=== PATIENT | male | born 1965 | race Two or more races ===

== ENCOUNTER → 2019-12-15 10:10 | Outpatient (BNVA) | payer MEDICAID, SELFPAY | PROVIDERS: PCP Family Medicine; Referring Provider Family Medicine; Visit Provider Hospitalist | DX: G47.33 Obstructive sleep apnea (adult) (pediatric) (principal); R06.00 Dyspnea, unspecified; I27.20 Pulmonary hypertension, unspecified; I42.9 Cardiomyopathy, unspecified | CPT/HCPCS: 99214 ==

== ENCOUNTER → 2020-03-14 10:30 | Outpatient (BNVA) | payer MEDICAID, SELFPAY | PROVIDERS: PCP Family Medicine; Visit Provider Hospitalist | DX: G47.33 Obstructive sleep apnea (adult) (pediatric) (principal); I27.20 Pulmonary hypertension, unspecified; R06.00 Dyspnea, unspecified | CPT/HCPCS: 99212 ==

== ENCOUNTER 2020-04-08 10:52 | Emergency (ER) | payer MEDICAID, SELFPAY ==
[2020-04-08 11:30] VITALS: BP 120/70; PULSE 88; RESP 16; TEMP 36.8; O2SAT 99; BMI 47.0
--- NOTE | 2020-04-08 12:59 | ED.EXTPRO ---
HPI - Extremity Problem General Chief complaint: Extremity Problem Stated complaint: GOUT Time Seen by Provider: 04/08/20 12:18 Source: patient Mode of arrival: ambulatory Limitations: no limitations History of Present Illness HPI Narrative: 54-year-old male with a past medical history of cardiomyopathy, SINGH, pulmonary hypertension, gout on allopurinol here with complaints of left ankle and foot pain times several days. The patient tells me the history of gout and this feels similar to previous. There is no injury or trauma. He is taking his allopurinol as prescribed with continued pain. No redness, warmth, fevers, chills, body aches. MD Complaint: extremity pain Related Data Home Medications Medication Instructions Recorded Confirmed allopurinol 300 mg tablet 150 mg PO DAILY 12/15/19 03/14/20 apixaban 5 mg tablet 5 mg PO BID 12/15/19 03/14/20 carvedilol 3.125 mg tablet 3.125 mg PO BID 12/15/19 03/14/20 cholecalciferol (vitamin D3) 25 25 mcg PO DAILY 12/15/19 03/14/20 mcg (1,000 unit) capsule furosemide 40 mg tablet 40 mg PO DAILY 12/15/19 03/14/20 ibuprofen 200 mg capsule 200 mg PO Q6H PRN 12/15/19 03/14/20 lisinopril 2.5 mg tablet 2.5 mg PO DAILY 12/15/19 03/14/20 nabumetone 750 mg tablet 750 mg PO BID 12/15/19 03/14/20 sacubitril 24 mg-valsartan 26 mg 1 tab PO BID 12/15/19 03/14/20 tablet Previous Rx's Medication Instructions Recorded clotrimazole-betamethasone 1 1 applic TOPICAL BID 30 Days #15 g 12/07/19 %-0.05 % topical cream prednisone 40 mg PO DAILY #10 tab 04/08/20 Allergies Allergy/AdvReac Type Severity Reaction Status Date / Time No Known Allergies Allergy Verified 04/08/20 11:32 [No Known Allergies*] Review of Systems Review of Systems: Yes all other systems are reviewed and are negative Constitutional: Constitutional: Reports no additional constitutional complaints, Denies body ache(s), Denies chills, Denies fever(s), Denies headache(s) and Denies weakness Eyes: Eyes: Reports no additional eye complaints and Denies change in vision ENT: Reports system reviewed and no additional complaints, except as documented, Denies dizziness, Denies headache(s), Denies nasal congestion, Denies nasal discharge and Denies neck pain Cardiovascular: Cardiovascular: Reports no additional cardiovascular complaints, Denies chest pain, Denies leg edema and Denies dyspnea Respiratory: Respiratory: Reports no additional respiratory complaints, Denies cough and Denies dyspnea Gastrointestinal: Gastrointestinal: Reports no additional gastrointestinal complaints, Denies abdominal pain, Denies diarrhea, Denies nausea and Denies vomiting Genitourinary: Genitourinary: Denies urinary incontinence Musculoskeletal: Musculoskeletal: Reports no additional musculoskeletal complaints, Denies back pain, Reports arthralgias, Denies joint swelling, Denies neck pain, Denies numbness and Denies tingling Integumentary/Breasts: Skin/Breast: Reports system reviewed and no additional complaints, except as docu and Denies rash Neurologic: Reports system reviewed and no additional complaints, except as documented, Denies Abnormal speech present, Denies dizziness, Denies headache(s), Denies numbness, Denies tingling and Denies weakness [facility] Past Medical History Attestation statement: The following information was validated with the patient. Source: old records reviewed and nursing notes reviewed Medical History Cardiomyopathy Dyspnea Gout SINGH (obstructive sleep apnea) Pulmonary hypertension Social History Social History Smoking Status: Never smoker Advance Directives: No Advance Directives Information Provided: Yes Physical Exam Vital Signs: Vital Signs: Last Vital Signs Temp 98.3 F 04/08/20 11:30 Pulse 88 04/08/20 11:30 Resp 16 04/08/20 11:30 BP 120/70 04/08/20 11:30 Pulse Ox 99 04/08/20 11:30 Body Mass Index 47.0 Const: General: cooperative, healthy appearing, comfortable and no acute distress Orientation/consciousness: patient oriented x3 Limitations: no limitations HENMT: Head: Yes normal to inspection Ears: hearing grossly normal bilaterally General nose exam: Normal external nose present Face and sinus: Yes normal facial exam Mouth: Normal oral and palatal mucosa present Throat: Yes posterior oropharynx normal Eyes: General: appearance normal, both eyes and all related structures Pupils: Equal, round and reactive pupils present Neck: Neck: Yes normal visual inspection Chest: Chest palpation & inspection: normal inspection of the chest Resp: Effort & Inspection: normal respiratory effort Auscultation: clear to auscultation bilaterally Cardio: Rate: regular rate Rhythm: regular rhythm Peripheral pulses: Peripheral pulses 2+ throughout GI: Inspection: Yes normal to inspection Palpation (GI): Soft to palpation and nontender Auscultation: normal bowel sounds Back/Spine/Pelvis: Thoracic/Lumbar Spine: thoracic and lumbar spine normal to inspection Skin: General skin exam: no rashes or lesions noted Neuro: General: patient oriented x3, no focal motor deficits and normal sensation to monofilament Cranial nerves: Yes Equal, round and reactive pupils present Cognition (Neuro): normal cognition Speech: No Abnormal speech present Gait exam (Neuro): Normal gait present Motor exam (neuro): 5/5 motor strength present throughout Extrem: Other: No erythema noted. There is tenderness over the more distal foot just proximal to the 1st digit. Full range of motion. No appreciable ankle tenderness or swelling on exam General: Yes normal to inspection Course Course Course Narrative: 54-year-old male here with left foot gout flare. Taking Eliquis so NSAIDs will be avoided. On allopurinol already. Will give 5 day course of prednisone and have f/u with PCP friday for persistent symptoms. Reviewed worrisome signs and symptoms of when to return to the emergency department. Comfortable discharge home. Discharge Plan Discharge Clinical Impression: Gout Patient Disposition: Home, Self-Care Instructions: Gout (ED) Additional Instructions: Continue your gout medication Follow-up with your primary care doctor on Friday Prescriptions: New prednisone 20 mg tablet 40 mg PO DAILY Qty: 10 RF: 0 No Action clotrimazole-betamethasone 1-0.05 % cream 1 applic topical BID 30 Days Qty: 15 RF: 2 furosemide 40 mg tablet 40 mg PO DAILY RF: 0 carvedilol 3.125 mg tablet 3.125 mg PO BID RF: 0 cholecalciferol (vitamin D3) 25 mcg (1,000 unit) capsule 25 mcg PO DAILY RF: 0 allopurinol 300 mg tablet 150 mg PO DAILY RF: 0 ibuprofen [Advil Migraine] 200 mg capsule 200 mg PO Q6H PRNRF: 0 nabumetone 750 mg tablet 750 mg PO BID RF: 0 lisinopril 2.5 mg tablet 2.5 mg PO DAILY RF: 0 Eliquis 5 mg tablet 5 mg PO BID RF: 0 Entresto 24-26 mg tablet 1 tab PO BID RF: 0 Referrals: [facility] [Primary Care Provider] - 2 days Interventions: ED Discharge Assessment Last Done: 04/08/20 12:56 Discharge Date/Time: 04/08/20 12:57
== END 2020-04-08 12:57 | disposition home or self-care (01) ==
PROVIDERS: Emergency Provider Emergency Medicine Emergency Medical Services
DX: M1A.9XX0 Chronic gout, unspecified, without tophus (tophi) (principal); I43 Cardiomyopathy in diseases classified elsewhere; I27.20 Pulmonary hypertension, unspecified; Z79.899 Other long term (current) drug therapy
CPT/HCPCS: 99283

== ENCOUNTER 2020-06-01 15:13 | Outpatient (REF) | payer MEDICAID, SELFPAY ==
[2020-06-01 16:02] LABS: COVID-19 Test Negative (Negative)
== END 2020-06-01 15:14 | disposition home or self-care (01) ==
LOC: HO.LAB 15:13
PROVIDERS: Visit Provider Internal Medicine
DX: Z20.822 Contact with and (suspected) exposure to COVID-19 (principal)
CPT/HCPCS: 36415; 87635; C9803

== ENCOUNTER 2020-06-19 12:09 | Outpatient (REF) | payer MEDICAID, SELFPAY ==
[2020-06-19 13:23] LABS: COVID-19 Test Negative (Negative); IDNOW Serial# 55D5AD1C
== END 2020-06-19 12:10 | disposition home or self-care (01) ==
LOC: HO.LAB 12:09
PROVIDERS: Visit Provider Internal Medicine
DX: Z20.822 Contact with and (suspected) exposure to COVID-19 (principal)
CPT/HCPCS: 36415; 87635; C9803

== ENCOUNTER 2020-11-13 13:45 | Emergency (ER) | payer MEDICAID, SELFPAY ==
[2020-11-13 15:07] VITALS: BP 95/68; PULSE 80; RESP 16; TEMP 37.3; O2SAT 99; BMI 45.2
[2020-11-13 18:01] LABS: MANUAL DIFF FLAG NO
[2020-11-13 18:03] LABS: Basophils Percent Auto 0.3 % (0-2); Eosinophils Absolute Auto 0.3 X10*3/uL (0.0-0.4); Eosinophils Percent Auto 3.2 % (0-4); Imm Gran Abs Auto 0.02 X10*3/uL (0.00-0.03); Imm Gran Pct Auto 0.2 % (0.0-0.4); Lymphocytes Absolute Auto 1.1 X10*3/uL (1.2-4.9); Lymphocytes Percent Auto 11.5 % (20-40); Mean Corpuscular HGB Conc 31.8 g/dl (31.0-36.0); Mean Corpuscular Hemoglobin 29.4 pg (27.0-33.0); Mean Corpuscular Volume 92.4 fL (80-98); Mean Platelet Volume 11.1 fL (9.4-12.4); Monocytes Absolute Auto 0.7 X10*3/uL (0.1-1.2); Monocytes Percent Auto 6.9 % (2-11); Neutrophils Absolute Auto 7.4 X10*3/uL (2.0-8.3); Neutrophils Percent Auto 77.9 % (45-73); Platelet Count 334 X10*3/uL (160-400); Red Blood Count 4.76 X10*6/uL (4.60-5.80); Red Cell Distribution Width 13.8 % (11.0-16.0); White Blood Count 9.5 X10*3/uL (4.8-10.8)
[2020-11-13 18:21] LABS: Anion Gap 17 (12-20); Blood Urea Nitrogen 33 mg/dL (9-16); Calcium 9.9 mg/dL (8.4-10.2); Carbon Dioxide 25 mmol/L (22-29); Chloride 99 mmol/L (96-108); Creatinine Clr Calc Pharmacy 74.6; Estimated Glomerular Filt Rate 49; Glucose Random 105 mg/dL (60-115); Potassium 4.3 mmol/L (3.3-5.1); Sodium 137 mmol/L (135-145)
[2020-11-13 18:27] LABS: B Type Natriuretic Peptide 548 pg/mL (<100)
[2020-11-13 20:03] VITALS: BP 102/66; PULSE 77; RESP 19; TEMP 37.2; O2SAT 99
--- NOTE | 2020-11-13 20:05 | ED.EXTPRO ---
HPI - Extremity Problem General Chief complaint: General Medical Stated complaint: gout Time Seen by Provider: 11/13/20 19:53 Source: patient and old records reviewed Mode of arrival: ambulatory Limitations: no limitations History of Present Illness MD Complaint: joint paint Onset (ago): week(s) (3) Pain Consistency: constant Location: left, right and other (ankle) Quality: aching Radiation: none Relieving factors: nothing Exacerbating factors: nothing, walking and palpation Associated symptoms: denies other symptoms Context: other (hx of gout and arthritis in the past) Related Data Home Medications Medication Instructions Recorded Confirmed allopurinol 300 mg tablet 150 mg PO DAILY 12/15/19 03/14/20 apixaban 5 mg tablet (Eliquis) 5 mg PO BID 12/15/19 03/14/20 carvedilol 3.125 mg tablet 3.125 mg PO BID 12/15/19 03/14/20 cholecalciferol (vitamin D3) 25 25 mcg PO DAILY 12/15/19 03/14/20 mcg (1,000 unit) capsule furosemide 40 mg tablet 40 mg PO DAILY 12/15/19 03/14/20 ibuprofen 200 mg capsule (Advil 200 mg PO Q6H PRN 12/15/19 03/14/20 Migraine) lisinopril 2.5 mg tablet 2.5 mg PO DAILY 12/15/19 03/14/20 nabumetone 750 mg tablet 750 mg PO BID 12/15/19 03/14/20 sacubitril 24 mg-valsartan 26 mg 1 tab PO BID 12/15/19 03/14/20 tablet (Entresto) Previous Rx's Medication Instructions Recorded clotrimazole-betamethasone 1 1 applic TOPICAL BID 30 Days #15 g 12/07/19 %-0.05 % topical cream prednisone 20 mg tablet 40 mg PO DAILY #10 tab 04/08/20 morphine 15 mg immediate release 15 mg PO Q6H PRN 3 Days #12 tab 11/13/20 tablet prednisone 20 mg tablet 40 mg PO DAILY 3 Days #6 tab 11/13/20 Allergies Allergy/AdvReac Type Severity Reaction Status Date / Time No Known Allergies Allergy Verified 11/13/20 20:03 [No Known Allergies*] Review of Systems Review of Systems: Constitutional : No Fever, No Chills ENT/Mouth : No Ear Pain, No Hoarseness, No sore throat Eyes: No Eye Pain, No Swelling, No Redness, No Foreign Body Cardiovascular : No Chest Pain, No SOB Respiratory : No Cough, No Dyspnea Gastrointestinal : No Nausea, No Vomiting, No Diarrhea, No abdominal Pain Genitourinary : No Dysuria, No Hematuria Musculoskeletal : positive joint pain, No Myalgias, No Joint Swelling Skin : No Skin lacerations, No rash Neuro : No Weakness, No Numbness, No Loss of Consciousness, No Dizziness, No Headache Psych : No Anxiety/Panic, No Depression Heme/Lymph: no easy bruising, no Lymphadenopathy Endocrine : No Polyuria, No Polydipsia All other systems reviewed and are negative [facility] Past Medical History Attestation statement: The following information was validated with the patient. Medical History Cardiomyopathy Dyspnea Gout SINGH (obstructive sleep apnea) Pulmonary hypertension Social History Social History (Updated 11/13/20 @ 20:57 by Silke Brasher DO) Patient Tobacco Use Status: Tobacco use Unknown Advance Directives: No Advance Directives Information Provided: No Physical Exam Vital Signs: Vital Signs: Last Vital Signs Temp 98.9 F 11/13/20 20:03 Pulse 77 11/13/20 20:03 Resp 19 11/13/20 20:03 BP 102/66 11/13/20 20:03 Pulse Ox 99 11/13/20 20:03 Body Mass Index 45.2 Appearance: Alert. Oriented X3. No acute distress. Eyes: Pupils equal, round and reactive to light. ENT: Pharynx normal. Neck: Normal inspection. Neck supple. CVS: Normal heart rate and rhythm. Pulses normal. Respiratory: No respiratory distress. Breath sounds normal. Abdomen: Soft and nontender. Skin: Skin warm and dry. Normal skin color. Normal skin turgor. Extremities: bilateral ankle pain on erythema/warmth, isolated to both ankles full ROM of ankle - no signs of infection, distal NV itnact, nonpitting edema of ankles No calf ttp Neuro: Oriented X 3. No motor deficit. No sensory deficit. MDM - Extremity (Nontraumatic) MDM Narrative Medical decision making narrative: 54 yo male with 3 weeks of bilateral ankle pain - mild non pitting edema, distal NV intact, no erythema/warmth, hx of gout in the past no signs of infection, no dyspnea/rales - suspect arthralgia vs gout - PO pain medications, PO prednisone Lab Data Result diagrams: 11/13/20 17:54 11/13/20 17:54 Labs: Lab Results 11/13/20 11/13/20 11/13/20 Range/Units 17:54 17:54 17:54 WBC 9.5 (4.8-10.8) X10*3/uL RBC 4.76 (4.60-5.80) X10*6/uL Hgb 14.0 (14.0-18.0) g/dl Hct 44.0 (42-52) % MCV 92.4 (80-98) fL MCH 29.4 (27.0-33.0) pg MCHC 31.8 (31.0-36.0) g/dl RDW 13.8 (11.0-16.0) % Plt Count 334 (160-400) X10*3/uL MPV 11.1 (9.4-12.4) fL Immature Gran % (Auto) 0.2 (0.0-0.4) % Neut % (Auto) 77.9 H (45-73) % Lymph % (Auto) 11.5 L (20-40) % [place] % (Auto) 6.9 (2-11) % Eos % (Auto) 3.2 (0-4) % Baso % (Auto) 0.3 (0-2) % Lymph # (Auto) 1.1 L (1.2-4.9) X10*3/uL [place] # (Auto) 0.7 (0.1-1.2) X10*3/uL Eos # (Auto) 0.3 (0.0-0.4) X10*3/uL Baso # (Auto) 0.0 (0.0-0.2) X10*3/uL Abs Immat Gran (auto) 0.02 (0.00-0.03) X10*3/uL Absolute Neuts (auto) 7.4 (2.0-8.3) X10*3/uL Absolute Nucleated RBC 0.000 (0.0-0.012) X10*3/uL Nucleated RBC % (auto) 0.0 (0.0-0.2) /100WBC Sodium 137 (135-145) mmol/L Potassium 4.3 (3.3-5.1) mmol/L Chloride 99 (96-108) mmol/L Carbon Dioxide 25 (22-29) mmol/L Anion Gap 17 (12-20) BUN 33 H (9-16) mg/dL Creatinine 1.49 H (0.5-1.4) mg/dL Estim Creat Clear Calc 74.6 Estimated GFR 49 Random Glucose 105 (60-115) mg/dL Calcium 9.9 (8.4-10.2) mg/dL B-Natriuretic Peptide 548 H (<100) pg/mL Urine Color Urine Appearance Urine pH (5.0-8.0) Ur Specific [place] (1.005-1.025) Urine Protein (NEG-TRACE) MG/DL Urine Glucose (UA) (NEG) MG/DL Urine Ketones (NEG) MG/DL Urine Blood (NEG) Urine Nitrite (NEG) Ur Leukocyte Esterase (NEG) 11/13/20 Range/Units 20:07 WBC (4.8-10.8) X10*3/uL RBC (4.60-5.80) X10*6/uL Hgb (14.0-18.0) g/dl Hct (42-52) % MCV (80-98) fL MCH (27.0-33.0) pg MCHC (31.0-36.0) g/dl RDW (11.0-16.0) % Plt Count (160-400) X10*3/uL MPV (9.4-12.4) fL Immature Gran % (Auto) (0.0-0.4) % Neut % (Auto) (45-73) % Lymph % (Auto) (20-40) % [place] % (Auto) (2-11) % Eos % (Auto) (0-4) % Baso % (Auto) (0-2) % Lymph # (Auto) (1.2-4.9) X10*3/uL [place] # (Auto) (0.1-1.2) X10*3/uL Eos # (Auto) (0.0-0.4) X10*3/uL Baso # (Auto) (0.0-0.2) X10*3/uL Abs Immat Gran (auto) (0.00-0.03) X10*3/uL Absolute Neuts (auto) (2.0-8.3) X10*3/uL Absolute Nucleated RBC (0.0-0.012) X10*3/uL Nucleated RBC % (auto) (0.0-0.2) /100WBC Sodium (135-145) mmol/L Potassium (3.3-5.1) mmol/L Chloride (96-108) mmol/L Carbon Dioxide (22-29) mmol/L Anion Gap (12-20) BUN (9-16) mg/dL Creatinine (0.5-1.4) mg/dL Estim Creat Clear Calc Estimated GFR Random Glucose (60-115) mg/dL Calcium (8.4-10.2) mg/dL B-Natriuretic Peptide (<100) pg/mL Urine Color YELLOW Urine Appearance CLEAR Urine pH 6.0 (5.0-8.0) Ur Specific [place] 1.015 (1.005-1.025) Urine Protein NEG (NEG-TRACE) MG/DL Urine Glucose (UA) NEG (NEG) MG/DL Urine Ketones NEG (NEG) MG/DL Urine Blood NEG (NEG) Urine Nitrite NEG (NEG) Ur Leukocyte Esterase NEG (NEG) Discharge Plan Discharge Clinical Impression: Arthralgia Qualifiers: Joint pain location: knee Laterality: bilateral Qualified Code(s): M25.561 - Pain in right knee Gout Qualifiers: Gout site: ankle Gout etiology: idiopathic Chronicity: acute Laterality: unspecified laterality Qualified Code(s): M10.079 - Idiopathic gout, unspecified ankle and foot Patient Disposition: Home, Self-Care Instructions: Gout (ED), Arthralgia (ED) Additional Instructions: return to ED for any worsening symptoms or concerns Prescriptions: New prednisone 20 mg tablet 40 mg PO DAILY 3 Days Qty: 6 RF: 0 morphine 15 mg tablet 15 mg PO Q6H PRN (Reason: pain) 3 Days Qty: 12 RF: 0 No Action clotrimazole-betamethasone 1-0.05 % cream 1 applic topical BID 30 Days Qty: 15 RF: 2 prednisone 20 mg tablet 40 mg PO DAILY Qty: 10 RF: 0 furosemide 40 mg tablet 40 mg PO DAILY RF: 0 carvedilol 3.125 mg tablet 3.125 mg PO BID RF: 0 cholecalciferol (vitamin D3) 25 mcg (1,000 unit) capsule 25 mcg PO DAILY RF: 0 allopurinol 300 mg tablet 150 mg PO DAILY RF: 0 ibuprofen [Advil Migraine] 200 mg capsule 200 mg PO Q6H PRNRF: 0 nabumetone 750 mg tablet 750 mg PO BID RF: 0 lisinopril 2.5 mg tablet 2.5 mg PO DAILY RF: 0 Eliquis 5 mg tablet 5 mg PO BID RF: 0 Entresto 24-26 mg tablet 1 tab PO BID RF: 0 Referrals: [facility] [Primary Care Provider] - 2 days (if not better)
[2020-11-13 20:17] LABS: Appearance Urine CLEAR; Color Urine YELLOW; Glucose Urine UA NEG (NEG); Leukocyte Esterase Urine NEG (NEG); Nitrite Urine NEG (NEG); Specific Gravity - Urine 1.015 (1.005-1.025); Urine Blood NEG (NEG); Urine Ketones NEG (NEG); Urine Protein NEG (NEG-TRACE)
[2020-11-13 20:58] VITALS: BP 97/65; PULSE 76; RESP 18; O2SAT 98
[2020-11-13] MEDS: Morphine Sulfate Immed Release 15 MG TABLET PO (20:58)
[2020-11-13] MEDS: predniSONE 20 MG TABLET PO (20:59)
== END 2020-11-13 21:46 | disposition home or self-care (01) ==
PROVIDERS: Emergency Provider Emergency Medicine
DX: M10.9 Gout, unspecified (principal); M10.079 Idiopathic gout, unspecified ankle and foot; M25.571 Pain in right ankle and joints of right foot; M25.561 Pain in right knee; Z79.899 Other long term (current) drug therapy
CPT/HCPCS: 36415; 80048; 81003; 83880; 85025; 99283; 99284

== ENCOUNTER → 2020-12-07 13:40 | Outpatient (REF) | payer MEDICAID, SELFPAY ==
--- NOTE | 2020-12-07 13:43 | CA_ITS ---
Transthoracic Echocardiogram Patient (Last, First, Middle): Phillip Garvin, Gender: Male Date of : 1965 Age: 55 Procedure Date: 12/07/2020 Procedure Type: Transthoracic Echocardiogram Location: OP Height: 170.18 cm Weight: 129.28 kg BSA: 2.35 m2 Heart Rate: bpm BP: 98 / 60 mmHg Plastic Printer: YVETTE Referring MD: Phillip Rivera MD Physician Credentialing Specialist: Rico Lee MD Symptoms: I27.20 - Pulmonary hypertension, unspecified Study Quality: Fair ECG Rhythm: Sinus Conclusions: - 1. Severely dilated left ventricle with severe LV systolic dysfunction with LVEF of 15-20% with grade 3 diastolic dysfunction 2. Mild mitral regurgitation due to annular dilatation 3. Normal RV systolic pressure 4. No gross pericardial effusion Findings Procedure Information Contrast agent, definity, is being given per protocol without apparent complications. Left Ventricle Severely increased left ventricular cavity size. There is normal left ventricular wall thickness. The left ventricular systolic function is severely decreased. The visually estimated ejection fraction is between 15 20%. There is severe global hypokinesis. Spectral Doppler is indicative of a restrictive filling pattern. E/E prime ratio is >15, consistent with elevated filling pressures. Evidence suggests grade III (severe) diastolic dysfunction. Right Ventricle Mildly increased right ventricular cavity size. There is normal right ventricular systolic function. Atria The left atrium is moderately dilated. Interatrial shunt cannot be excluded. The right atrium was not well visualized. Aortic Valve The aortic valve structure and function is likely normal. There is no aortic valve stenosis. There is trace (trivial) aortic valve regurgitation. Mitral Valve There is mild anterior and posterior mitral leaflet thickening. There is mild mitral valve regurgitation. There is no mitral valve stenosis. There is mild mitral annular dilatation. Pulmonic Valve The pulmonic valve was not well visualized. Tricuspid Valve Normal tricuspid valve structure. There is mild tricuspid valve regurgitation. The right ventricular systolic pressure is normal. The right ventricular systolic pressure is 24 mmHg. There is no evidence of pulmonary hypertension. Great Vessels All visible segments of the aorta are normal in size. The pulmonary artery was not well visualized. Venous The inferior vena cava is normal in size and collapses greater than 50% with inspiration. Pericardium/Pleural There is no evidence of pericardial effusion. Prior Study Comparison Changes noted compared to prior study dated: 06/22/2019. RV systolic pressure has improved Measurements M-Mode Liner Measurements Normals - Women/Men IVSd: 1.07 0.6-0.9/0.6-1.0 cm LVIDd: 7.88 3.9-5.3/4.2-5.9 cm LVIDd Index: 3.35 1.9-3.2 cm/m2 LVIDs: 6.87 2.0-3.8 cm LVPWd: 0.87 0.6-0.9/0.6-1.0 cm LV Mass: 474.47 67-162/88-224g LV Mass Index: 201.90 43-95/49-115 g/m2 M-Mode Volumes LV EDV: 333.00 LV ESV: 245.00 2D Linear Measurements IVSd: 0.69 0.6-0.9/0.6-1.0 cm LVIDd: 7.35 3.9-5.3/4.2-5.9 cm LVIDd Index: 3.13 2.4-3.2/2.2-3.1 cm/m2 LVIDs: 6.62 2.0-3.6 cm LVPWd: 0.94 0.7-1.1 cm Ao Root: 2.90 2.1-3.5 cm LA Diam: 4.70 2.7-3.8/3.0-4.0 cm LAIDs Index: 2.00 1.5-2.3 cm/m2 LV Mass: 339.92 67-162/88-224 g LV Mass Index: 144.65 43-95/49-115 g/m2 LVOT Diam: 2.50 3.0+(-)1.3 cm 2D Systolic Function EF 4C: 19.50 >55% EF 2C: 14.00 >55% EF BiP: 20.00 >55% M-Mode Systolic Function FS: 12.80 27-47/25-43% Mitral Valve MV Pk E: 1.17 MV Decel Time: 125.00 E'Lateral: 5.77 E'Medial: 4.79 E/E' Med: 24.40 E/E' Lat: 20.30 PHT: 37.00 MVA PHT: 5.95 Decel [place]: 9.40 Aortic Valve AoV Pk Jorge A: 0.99 AoV Pk Grad: 4.00 LVOT LVOT Pk Jorge A: 0.57 LVOT Mn Jorge A: 0.40 LVOT VTI: 0.11 LVOT Pk Grad: 1.00 LVOT Mn Grad: 1.00 LVOT Diam: 2.50 LVOT Area: 4.91 Diastolic Function MV Pk E: 1.17 E'Medial: 4.79 E/E' Med: 24.40 E' Laterial: 5.77 E/E' Lat: 20.30 Right Ventricle TAPSE (mm): 2.13 Tricuspid Valve TR Pk Jorge A: 2.29 TR Pk Grad: 21.00 RA Press: 3.00 RVSP: 24.00 Great Vessels Aorta Ao Root-2D: 2.90 2.0-3.7 cm Ao Asc: 3.20 2.1-3.4 cm Updated in Other Vendor System with Status of Final Rico Lee MD electronically signed on 12/09/2020 9:24:01 AM with status of Final
== END ==
LOC: HO.CARD 13:40
PROVIDERS: Visit Provider Hospitalist
DX: I27.20 Pulmonary hypertension, unspecified (principal)
CPT/HCPCS: 93306; Q9957

== ENCOUNTER 2021-01-02 12:47 | Outpatient (REF) | payer MEDICAID, SELFPAY ==
[2021-01-02 14:31] LABS: Alanine Aminotransferase 26 U/L (0-40); Alkaline Phosphatase 128 U/L (39-117); Anion Gap 12 (12-20); Aspartate Amino Transferase 28 U/L (5-37); Bilirubin Direct 0.3 mg/dL (0.0-0.5); Bilirubin Total 0.8 mg/dL (0.0-1.0); Blood Urea Nitrogen 32 mg/dL (9-16); Calcium 9.3 mg/dL (8.4-10.2); Carbon Dioxide 29 mmol/L (22-29); Chloride 104 mmol/L (96-108); Cholesterol 205 mg/dL; Estimated Glomerular Filt Rate 42; Glucose Random 87 mg/dL (60-115); HDL Cholesterol 50 mg/dL; LDL Cholesterol Calculated 134 mg/dl; Potassium 4.6 mmol/L (3.3-5.1); Sodium 140 mmol/L (135-145); Total Protein 7.4 g/dL (6.5-8.0); Triglycerides 109 mg/dL
== END 2021-01-02 12:48 | disposition home or self-care (01) ==
LOC: HO.10HDL 12:47
PROVIDERS: Visit Provider Internal Medicine
DX: I10 Essential (primary) hypertension (principal)
CPT/HCPCS: 36415; 80048; 80061; 80076

== ENCOUNTER → 2022-04-05 12:59 | Outpatient (BNVA) | payer MEDICAID, SELFPAY | PROVIDERS: PCP Nurse Practitioner Primary Care; Visit Provider Hospitalist | DX: G47.33 Obstructive sleep apnea (adult) (pediatric) (principal); R40.0 Somnolence; R06.00 Dyspnea, unspecified; I27.0 Primary pulmonary hypertension; I43 Cardiomyopathy in diseases classified elsewhere | CPT/HCPCS: 99212 ==

== ENCOUNTER 2022-04-15 12:23 | Outpatient (REF) | payer MEDICAID, SELFPAY ==
[2022-04-15 13:27] LABS: Anion Gap 14 (12-20); Blood Urea Nitrogen 31 mg/dL (9-16); Calcium 9.4 mg/dL (8.4-10.2); Carbon Dioxide 24 mmol/L (22-29); Chloride 105 mmol/L (96-108); Estimated Glomerular Filt Rate 59; Glucose Random 82 mg/dL (60-115); Potassium 4.7 mmol/L (3.3-5.1); Sodium 138 mmol/L (135-145)
[2022-04-15 14:20] LABS: Creatinine Urine 58.98 mg/dL; Microalbum/Creatinine Ratio Ur 13.5 ug/mg cr
== END 2022-04-15 12:24 | disposition home or self-care (01) ==
LOC: HO.LAB 12:23
PROVIDERS: PCP Nurse Practitioner Primary Care; Visit Provider Internal Medicine Hypertension Specialist
DX: N18.31 Chronic kidney disease, stage 3a (principal)
CPT/HCPCS: 36415; 80048; 82043

== ENCOUNTER 2023-02-10 13:48 | Outpatient (AMB) | payer MEDICAID, SELFPAY ==
[2023-02-10 13:52] VITALS: PULSE 86; O2SAT 98; BMI 49.5
--- NOTE | 2023-02-10 13:52 | HO.NEPHOV ---
HPI HPI Comments History of Present Illness Details Middle-aged man with obesity and cardiomyopathy and CKD. He has a history of SOILA in the past. Renal function is improved and returned to baseline. Today he has no specific complaints. [facility] Medical History Gout Cardiomyopathy Dyspnea Pulmonary hypertension SINGH (obstructive sleep apnea) Social History Patient Tobacco Use Status: Tobacco use Unknown Vital Signs 02/10/23 13:52 Height 5 ft 7 in Weight 316 lb BMI 49.5 Pulse 86 Pulse Source Pulse Oximeter Pulse Oximetry (%) 98 Oxygen Delivery Method Room Air Physical Exam Vital Signs: Last Vital Signs Pulse 86 02/10/23 13:52 Pulse Ox 98 02/10/23 13:52 Oxygen Delivery Method Room Air 02/10/23 13:52 BMI result Body Mass Index 49.5 Const General: comfortable Nutritional Appearance: obese Orientation/consciousness: patient oriented x3 HEENT Head: No normal to inspection Mouth: moist mucous membranes Neck Neck: Yes supple and Yes no JVD Resp Auscultation: clear to auscultation bilaterally, no rales and rub present Cardio Jugular venous distension: no JVD Palpation: no palpable S3 and no palpable S4 Heart sounds: no rubs GI Palpation (GI): Soft to palpation and nontender Percussion: No Fluid wave present General: Yes no CVA tenderness Back/Spine/Pelvis Back: no CVA tenderness Skin General skin exam: no rashes or lesions noted Neuro General: patient oriented x3 Extrem General: Yes no pedal edema and No clubbing Assessment & Plan Assessment & Plan (1) CKD (chronic kidney disease) stage 3, GFR 30-59 ml/min: Code(s): N18.30 - Chronic kidney disease, stage 3 unspecified (2) Cardiomyopathy: Code(s): I42.9 - Cardiomyopathy, unspecified Plan Middle-aged man with CKD in setting obesity and cardiomyopathy. He had an episode of SOILA which has resolved. At present renal function is at baseline. Goal is to slow the progression of renal disease. Continue to avoid hypotension and nephrotoxins including NSAIDs. Discussed importance of weight loss and low-sodium diet. Baseline workup has been ordered as below. Orders: Orders Electrolytes Today I42.9 - Cardiomyopathy, unspecified, N18.30 - Chronic kidney disease, stage 3 unspecified Blood Urea Nitrogen Today I42.9 - Cardiomyopathy, unspecified, N18.30 - Chronic kidney disease, stage 3 unspecified Creatinine Today I42.9 - Cardiomyopathy, unspecified, N18.30 - Chronic kidney disease, stage 3 unspecified Calcium Today I42.9 - Cardiomyopathy, unspecified, N18.30 - Chronic kidney disease, stage 3 unspecified Total Protein Urine Random Today I42.9 - Cardiomyopathy, unspecified, N18.30 - Chronic kidney disease, stage 3 unspecified Creatinine Urine Today I42.9 - Cardiomyopathy, unspecified, N18.30 - Chronic kidney disease, stage 3 unspecified UA and rflx microscopic Today I42.9 - Cardiomyopathy, unspecified, N18.30 - Chronic kidney disease, stage 3 unspecified Complete Blood Count no Diff Today I42.9 - Cardiomyopathy, unspecified, N18.30 - Chronic kidney disease, stage 3 unspecified Coding Level of Care Code Est Pt Level 4 (02130) Diagnoses CKD (chronic kidney disease) stage 3, GFR 30-59 ml/min N18.30 Cardiomyopathy I42.9 Results Reviewed Nephrology Results: Hgb 14.0 g/dl (14.0-18.0) 11/13/20 WBC 9.5 X10*3/uL (4.8-10.8) 11/13/20 Plt Count 334 X10*3/uL (160-400) 11/13/20 Sodium 138 mmol/L (135-145) 04/15/22 Potassium 4.7 mmol/L (3.3-5.1) 04/15/22 Chloride 105 mmol/L (96-108) 04/15/22 Carbon Dioxide 24 mmol/L (22-29) 04/15/22 BUN 31 mg/dL (9-16) H 04/15/22 Creatinine 1.26 mg/dL (0.5-1.4) 04/15/22 Calcium 9.4 mg/dL (8.4-10.2) 04/15/22 Urine Protein NEG MG/DL (NEG-TRACE) 11/13/20 Urine Creatinine 58.98 mg/dL 04/15/22
== END 2023-02-10 14:18 | disposition home or self-care (01) ==
PROVIDERS: PCP Nurse Practitioner Primary Care; Visit Provider Internal Medicine Hypertension Specialist
DX: N18.30 Chronic kidney disease, stage 3 unspecified (principal); I42.9 Cardiomyopathy, unspecified
CPT/HCPCS: 99214

== ENCOUNTER 2023-02-10 13:48 | Outpatient (REF) | payer MEDICAID, SELFPAY ==
[2023-02-10 15:26] LABS: Hematocrit 46.9 % (42.0-52.0); Hemoglobin 14.8 g/dl (14.0-18.0); Mean Corpuscular HGB Conc 31.6 g/dl (31.0-36.0); Mean Corpuscular Hemoglobin 30.4 pg (27.0-33.0); Mean Corpuscular Volume 96.3 fL (80.0-98.0); Mean Platelet Volume 11.9 fL (9.4-12.4); Platelet Count 254 X10*3/uL (160-400); Red Blood Count 4.87 X10*6/uL (4.60-5.80); Red Cell Distribution Width 13.2 % (11.0-16.0); White Blood Count 8.7 X10*3/uL (4.8-10.8)
[2023-02-10 15:44] LABS: Anion Gap 15 (12-20); Blood Urea Nitrogen 37 mg/dL (9-16); Calcium 9.8 mg/dL (8.4-10.2); Carbon Dioxide 26 mmol/L (22-29); Chloride 106 mmol/L (96-108); Estimated Glomerular Filt Rate 56; Potassium 4.7 mmol/L (3.3-5.1); Sodium 142 mmol/L (135-145)
[2023-02-10 16:33] LABS: Appearance Urine Clear; Color Urine Yellow; Glucose Urine UA 100 mg/dL (Negative); Leukocyte Esterase Urine Negative (Negative); Nitrite Urine Negative (Negative); UMIC TRIGGER UA YES; Urine Blood Trace (Negative); Urine Ketones Negative (Negative); Urine Protein Negative (Neg-Trace)
[2023-02-10 16:35] LABS: Bacteria Urine None Seen (None Seen); Hyaline Casts Urine 0-2 /LPF (0-2); RBC Urine 0-2 /HPF (0-2); Squamous Epithelial Cell Urine 0-2 /HPF (0-2); WBC Urine 0-5 /HPF (0-5)
[2023-02-10 17:08] LABS: Creatinine Urine 31.06 mg/dL; Total Protein Urine Random < 7 mg/dL (<12)
== END 2023-02-10 13:49 | disposition home or self-care (01) ==
LOC: HO.LAB 13:48
PROVIDERS: PCP Nurse Practitioner Primary Care; Visit Provider Internal Medicine Hypertension Specialist
DX: I42.9 Cardiomyopathy, unspecified (principal); N18.30 Chronic kidney disease, stage 3 unspecified; E66.9 Obesity, unspecified; Z68.42 Body mass index [BMI] 45.0-49.9, adult
CPT/HCPCS: 36415; 80051; 81001; 82310; 82565; 82570; 84156; 84520; 85027; 99212

== ENCOUNTER 2023-03-30 14:36 | Emergency (ER) | payer MEDICAID, SELFPAY ==
--- NOTE | ~2023-03-30 | XR_ITS ---
EXAMINATION: XR ELBOW, LEFT CLINICAL INFORMATION: Pain, swelling, and redness COMPARISON: None available. TECHNIQUE: AP, lateral, and oblique views of the left elbow. FINDINGS: No evidence of acute fracture or malalignment. Small radiocapitellar and ulnotrochlear osteophytes. Radiocapitellar alignment is normal. Small triceps and forearm extensor insertional enthesophytes. No elbow joint effusion. Moderate soft tissue swelling overlying the olecranon process. Punctate, 3 mm radiopaque density overlies the lateral/volar soft tissues of the proximal forearm, possibly external. Correlate with physical exam. XR/XR elbow LT 2V IMPRESSION: 1. No evidence of acute fracture or malalignment. Mild elbow arthrosis. 2. Moderate soft tissue swelling overlying the olecranon process, can be seen in the setting of olecranon bursitis. 3. Punctate, 3 mm radiopaque density overlies the lateral/volar soft tissues of the proximal forearm, possibly external. Correlate with direct visualization
--- NOTE | 2023-03-30 14:41 | ECG_ITS ---
Test Reason : left arm pain Blood Pressure : / mmHG Vent. Rate : 084 BPM Atrial Rate : 084 BPM P-R Int : 214 ms QRS Dur : 154 ms QT Int : 406 ms P-R-T Axes : 035 -50 101 degrees QTc Int : 479 ms Sinus rhythm with 1st degree A-V block with occasional Premature ventricular complexes Left axis deviation Left bundle branch block Abnormal ECG When compared with ECG of 20-JUN-2019 15:35, Premature ventricular complexes are now Present OR interval has increased QRS duration has increased T wave inversion less evident in Lateral leads Referred By: Generic ED Physician Electronically Signed By:MONICA REYNOSO
[2023-03-30 15:22] VITALS: BP 109/70; PULSE 88; RESP 18; TEMP 36.4; O2SAT 97; BMI 49.6
--- NOTE | 2023-03-30 15:28 | ED.GENADULT ---
HPI - General Adult General Chief complaint: Extremity Injury, Upper Stated complaint: Left arm pain Time Seen by Provider: 03/30/23 20:07 Source: patient and RN notes reviewed Mode of arrival: ambulatory Limitations: no limitations History of Present Illness HPI narrative: This is a 57-year-old male, with a history of gout, cardiomyopathy, SINGH, pulmonary hypertension, gout on allopurinol presenting to the emergency department with complaints of atraumatic left elbow pain x2 days. Patient states that he typically gets gout flare ups in his knees and feet, denies having any gout flare ups in his elbows before. He states that he is unable to sleep secondary to the pain. Pain worsens with light palpation as well as movement. He reports that he felt warm the other day however denies any fevers, chills, chest pain, shortness of breath, abdominal pain, nausea, vomiting or diarrhea. He denies taking any medications at home to treat his current symptoms. No other complaints or concerns at this time. MD complaint: Left elbow pain Onset (ago): day(s) Location: upper extremity Radiation: non-radiation Severity: moderate Quality: aching Pain Consistency: constant Relieving factors: immobilization Exacerbating factors: movement Associated symptoms: denies other symptoms Treatments prior to arrival: none Related Data Home Medications Medication Instructions Recorded Confirmed allopurinol 300 mg tablet 150 mg PO DAILY 12/15/19 03/14/20 apixaban 5 mg tablet (Eliquis) 5 mg PO BID 12/15/19 03/14/20 carvedilol 3.125 mg tablet 3.125 mg PO BID 12/15/19 03/14/20 furosemide 40 mg tablet 40 mg PO DAILY 12/15/19 03/14/20 lisinopril 2.5 mg tablet 2.5 mg PO DAILY 12/15/19 03/14/20 sacubitril 24 mg-valsartan 26 mg 1 tab PO BID 12/15/19 03/14/20 tablet (Entresto) Previous Rx's Medication Instructions Recorded prednisone 20 mg tablet 40 mg (2 x 20 mg) PO DAILY 4 days 03/30/23 #8 tabs Allergies Allergy/AdvReac Type Severity Reaction Status Date / Time No Known Allergies Allergy Verified 02/10/23 13:55 [No Known Allergies*] Review of Systems Review of Systems: Yes all other systems are reviewed and are negative PMFSH Past Medical History Attestation statement: The following information was validated with the patient. Medical History Gout Cardiomyopathy Dyspnea Pulmonary hypertension SINGH (obstructive sleep apnea) Social History Social History Patient Tobacco Use Status: Tobacco use Unknown Smoked in Last 30 Days: No Use of substances other than those prescribed or required for medical reasons: No Advance Directives: No Advance Directives Information Provided: No Physical Exam ED Vital Signs: Vital Signs - 24 hr 03/30/23 15:22 03/30/23 19:37 Temperature 97.5 F 98.1 F Pulse Rate 88 89 Respiratory Rate 18 22 H Blood Pressure 109/70 128/72 Pulse Oximetry 97 98 Oxygen Delivery Method Room Air Room Air BMI result Body Mass Index 49.6 Const Other: General: Awake, alert, and oriented X3. No acute distress. HEENT: Normal inspection CVS: Normal heart rate and rhythm. Pulses normal. Respiratory: No respiratory distress Skin: Warm, dry, no rashes noted to exposed skin. Normal skin color. Normal skin turgor. Extremities: Left elbow is exquisitely tender to light palpation, limited range of motion, however able to move elbow 30?. Warm however does not appear to be erythematous. No open wounds or abrasions. Neuro: Oriented X 3. No motor deficit. No sensory deficit. Course Course Course Narrative: RME: 57 yold male with pmh of gout presents to ED for left elbow swelling and pain for couple of days. Patient denies any recent trauma. Medications Administered Discontinued Medications Generic Name Dose Route Start Last Admin Trade Name Freq PRN Reason Stop Dose Admin Prednisone 50 mg 03/30/23 20:32 03/30/23 20:55 Prednisone 10 Mg Tablet PO 03/30/23 20:33 50 mg ONCE ONE Administration Medical Decision Making Medical Decision Making MDM Narrative: This is a 57-year-old male, with a history of gout, presenting to the emergency department for evaluation of left elbow pain x 2 days. On arrival, patient nontoxic appearing, vital signs within normal limits. He is afebrile. Left elbow is moderately edematous, with limited range of motion secondary to pain. Patient with exquisite tenderness on light palpation. He has a history of gouty flare-ups, states that his symptoms feel similar to gout flare ups he has had in the past. Denies taking any medications at home to treat his current symptoms. X-ray was obtained revealing no acute fracture or malalignment. There is moderate soft tissue swelling overlying the olecranon process. There is also a punctate radiopaque foreign body noted in the proximal forearm, I discussed this with patient, he states that he is aware of this foreign body. Differential diagnoses include gouty arthritis, olecranon bursitis, septic arthritis-unlikely. Given physical exam findings this does not appear to be cellulitic in nature, symptoms likely secondary to gouty arthritis, will treat with prednisone as patient is on Eliquis. He is already on allopurinol. Will give 5 day course of prednisone and have him follow-up with his primary care physician if symptoms persist. Patient given return precautions. Patient understands and agrees with plan. Patient stable for discharge. Of note an EKG was ordered out in triage, he has no chest pain or shortness of breath. EKG appears to be similar to previous, with PVCs noted. He does have a manager recovery whom he follows up with, appointment within the next several months for an echocardiogram. Differential Diagnosis Differential Diagnoses: The differential diagnosis associated with the presentation includes See above Independent Interpretation I performed an independent interpretation of an: EKG and Plain X-Ray Interpretation: I reviewed the x-ray and agree with the radiology report. EKG normal sinus rhythm with a first-degree AV block at a ventricular rate of 84 beats per minute, [place] interval two hundred fourteen, QTC 479, no ST elevation or depression. Appears to be similar to previous EKG performed on June 20, 2019 Radiology Impression Discussion of test interpretation with radiology: I have reviewed the radiologist's reading. Radiologist Impression: EXAMINATION: XR ELBOW, LEFT CLINICAL INFORMATION: Pain, swelling, and redness COMPARISON: None available. TECHNIQUE: AP, lateral, and oblique views of the left elbow. FINDINGS: No evidence of acute fracture or malalignment. Small radiocapitellar and ulnotrochlear osteophytes. Radiocapitellar alignment is normal. Small triceps and forearm extensor insertional enthesophytes. No elbow joint effusion. Moderate soft tissue swelling overlying the olecranon process. Punctate, 3 mm radiopaque density overlies the lateral/volar soft tissues of the proximal forearm, possibly external. Correlate with physical exam. XR/XR elbow LT 2V IMPRESSION: 1. No evidence of acute fracture or malalignment. Mild elbow arthrosis. 2. Moderate soft tissue swelling overlying the olecranon process, can be seen in the setting of olecranon bursitis. 3. Punctate, 3 mm radiopaque density overlies the lateral/volar soft tissues of the proximal forearm, possibly external. Correlate with direct visualization Dictated By: Adrien Boles MD Discharge Plan Discharge Clinical Impression: Gout Patient Disposition: Home, Self-Care Instructions: Low Purine Diet (ED), Gout (ED) Additional Instructions: You were seen in the emergency department due to left elbow pain. Your x-ray did not show any broken bones however shows evidence of a swollen joint, this may be due to gout. Please continue taking all at-home medications including allopurinol. I am treating you with prednisone, you were given your 1st dose in the emergency department. Please continue this medication at home, start tomorrow. You may take Tylenol as needed for pain. If any new or worsening symptoms occur including but not limited to fevers, chills, chest pain, shortness for breath, worsening range of motion of your left elbow, please return for re-evaluation. Lo atendieron en urgencias por dolor en el codo park. Arcos radiograf?a no mostr? devon?n hueso roto, sin embargo, muestra evidencia de roberta articulaci?n inflamada, esto puede deberse a gota. Contin?e tomando todos los medicamentos que vanessa en casa, incluido el alopurinol. Te estoy tratando con prednisona, te dieron tu 1ra dosis en urgencias. Por favor contin?e con yanni medicamento en casa, comience ma?kendrick. Puede priti Tylenol seg?n sea necesario para el dolor. Si se presenta alg?n s?ntoma nuevo o que empeora, incluidos, entre otros, fiebre, escalofr?os, dolor en el pecho, dificultad para respirar o empeoramiento del rango de movimiento del codo park, regrese para roberta nueva evaluaci?n. Prescriptions: New prednisone 20 mg tablet 40 mg PO DAILY 4 Days Qty: 8 0RF No Action furosemide 40 mg tablet 40 mg PO DAILY carvedilol 3.125 mg tablet 3.125 mg PO BID Rx Instructions: must administer with a meal/food allopurinol 300 mg tablet 150 mg PO DAILY lisinopril 2.5 mg tablet 2.5 mg PO DAILY Eliquis 5 mg tablet 5 mg PO BID Entresto 24-26 mg tablet 1 tab PO BID Interventions: ED Discharge Assessment Last Done: 03/30/23 21:48 Discharge Date/Time: 03/30/23 21:00 Print Language: Tajik
--- OUTSIDE RECORDS SUMMARY | 2023-03-30 19:27 | XMS_ITS | Continuity of Care Document ---
Author Name Unknown Organization [facility] Address [address] [place] [address]- Care Team Providers Care Crystalizer Name Role Phone Tylor Odom MD, Maurice [facility] AC[facility] R [id number] Date(s): 12/20/22 - 01/19/23 [facility] [address] [place] [address]- Attending Physician: Madison Bauer Admitting Physician: Madison Bauer Referring Physician: AdmtrMadison Allergies, Adverse Reactions, Alerts No Known Allergies Medications allopurinol 300 mg oral tablet 300 mg, 1, tablet, By Mouth, Daily, # 30 tablet, Refills 0, Maintenance, 12/16/18 7:22:08 EDT Start Date: 12/16/18 Status: Ordered colchicine 0.6 mg oral tablet 0.3 mg, 0.5, tablet, By Mouth, Daily, # 45 tablet, Refills 1, Tot. Refills 1, Maintenance, :59:00 EST, Route to Pharmacy Electronically, [facility]/pharmacy #[id number], Partial fill upon patient request if the prescription is for a schedule II opioid drMal.. Start Date: 04/26/21 Status: Ordered dapagliflozin 10 mg oral tablet 1 tablet = 10 mg, By Mouth, Daily, # 30 tablet, 11 Refills, Maintenance, 04/23/22 13:46:00 EST, Tablet, [facility]/pharmacy #[id number], Partial fill upon patient request if the prescription is for a schedule II opioid drug., 170, cm, 04/23/22 13:16:00 EST, Height Start Date: 04/23/22 Status: Ordered Eliquis 5 mg oral tablet 1 tablet, By Mouth, 2 times a day, # 60 tablet, 5 Refills, Maintenance, 12/24/22 10:40:00 EDT, [facility] STORE [id number], 170, cm, 08/23/22 14:14:00 EDT, Height Start Date: 12/24/22 Stop Date: 01/23/23 Status: Ordered Entresto 24 mg-26 mg oral tablet 1 tablet, By Mouth, Every 12 hours, # 60 tablet, 11 Refills, Maintenance, 06/12/22 8:54:00 EDT, [id number], 30, TAKE 1 TABLET BY MOUTH EVERY 12 HOURS, 170, cm, 05/22/22 14:53:00 EDT, Height Start Date: 06/12/22 Status: Ordered spironolactone 25 mg oral tablet 0.5, tablet, By Mouth, Daily, # 45 tablet, Refills 3, Maintenance, 10/17/22 12:31:00 EDT, Route to Pharmacy Electronically, [id number], 170, cm, 08/23/22 14:14:00 EDT, Height Start Date: 10/17/22 Status: Ordered Tab-A-Lizabeth with Iron oral tablet 1 tablet, By Mouth, Daily, # 30 tablet, 0 Refills, Maintenance, 07/25/20 15:43:00 EDT, Tablet, Partial fill upon patient request if the prescription is for a schedule II opioid drug. Start Date: 07/25/20 Status: Ordered torsemide 20 mg oral tablet 1 tablet, By Mouth, 2 times a day, # 180 tablet, 2 Refills, Maintenance, 10/07/22 16:00:00 EDT, [id number], 170, cm, 08/23/22 14:14:00 EDT, Height Start Date: 10/07/22 Status: Ordered Problem List Condition Confirmation Course Effective Dates Status H ealth Status Informant Cardiomyopathy Confirmed Active CHF (congestive heart failure) Confirmed Active Gout Confirmed Active History of pulmonary embolism Confirmed Active Heart failure with reduced ejection fraction Confirmed Active Nonischemic dilated cardiomyopathy Confirmed Active Obstructive sleep apnea Confirmed Active Severe obesity Confirmed Active Social History Social History Type Response Smoking Status Never (less than 100 in lifetime) entered on: 07/02/19 Sex Patient Care team information Care Team Personnel Name: Benny Lim Position: [facility] Outreach Member Role: Lifetime Consulting Physician Name: Harinder Suazo MD Position: [facility] Renal MD Member Role: Lifetime Consulting Physician Address: Address: [address] [place] [address] [address] [facility] [address]- [place] Name: Maurice Keyes MD Position: [facility] Outreach Member Role: PCP Address: Address: [address] [place] [phone]- Name: Jeni Zavala RN Position: [facility] SN RN Member Role: Primary Care Nurse Name: Itzel Mcneil RN Position: [facility] RN Member Role: Primary Care Nurse Name: Kaur Tian RN Position: S RN Member Role: Primary Care Nurse Care Team Related Persons Name: DYLLAN NARVAEZ Address: home [address], [place] Name: UNKNOWN, DEFAULTED
--- OUTSIDE RECORDS SUMMARY | 2023-03-30 19:27 | XMS_ITS | Continuity of Care Document ---
Author Name Unknown Organization [facility] ter Address [address] [place] [address]- Care Team Providers Care Radiation Oncology Manager Name Role Phone Tylor Odom MD, Maurice Primary Care Phys ician Encounter [facility] Date(s): 12/08/22 - 01/17/[address] [id number]- Attending Physician: Kody Nathan NP Admitting Physician: Kody Nathan NP Referring Physician: Kody Nathan NP Allergies, Adverse Reactions, Alerts No Known Allergies Medications allopurinol 300 mg oral tablet 300 mg, 1, tablet, By Mouth, Daily, # 30 tablet, Refills 0, Maintenance, 12/16/18 7:22:08 EDT Start Date: 12/16/18 Status: Ordered colchicine 0.6 mg oral tablet 0.3 mg, 0.5, tablet, By Mouth, Daily, # 45 tablet, Refills 1, Tot. Refills 1, Maintenance, :59:00 EST, Route to Pharmacy Electronically, [facility]/pharmacy #[id number], Partial fill upon patient request if the prescription is for a schedule II opioid drCarlos. Start Date: 04/26/21 Status: Ordered dapagliflozin 10 mg oral tablet 1 tablet = 10 mg, By Mouth, Daily, # 30 tablet, 11 Refills, Maintenance, 04/23/22 13:46:00 EST, Tablet, [facility]/pharmacy #[id number], Partial fill upon patient request if the prescription is for a schedule II opioid drug., 170, cm, 04/23/22 13:16:00 EST, Height Start Date: 04/23/22 Status: Ordered Eliquis 5 mg oral tablet 1 tablet, By Mouth, 2 times a day, # 60 tablet, 5 Refills, Maintenance, 12/24/22 10:40:00 EDT, [id number], 170, cm, 08/23/22 14:14:00 EDT, Height Start Date: 12/24/22 Stop Date: 01/23/23 Status: Ordered Entresto 24 mg-26 mg oral tablet 1 tablet, By Mouth, Every 12 hours, # 60 tablet, 11 Refills, Maintenance, 06/12/22 8:54:00 EDT, [facility], 30, TAKE 1 TABLET BY MOUTH EVERY 12 HOURS, 170, cm, 05/22/22 14:53:00 EDT, Height Start Date: 06/12/22 Status: Ordered spironolactone 25 mg oral tablet 0.5, tablet, By Mouth, Daily, # 45 tablet, Refills 3, Maintenance, 10/17/22 12:31:00 EDT, Route to Pharmacy Electronically, [id number], 170, cm, 08/23/22 14:14:00 EDT, Height Start [...] 2 Refills, Maintenance, 10/07/22 16:00:00 EDT, [id number], 170, cm, 08/23/22 14:14:00 EDT, Height Start [...] Care Team Personnel Name: Benny Lim Position: [facility] Outreach Member Role: Lifetime Consulting Physician Name: Gabriele WHITING, Harinder Alcala Position: [facility] Renal MD Member Role: Lifetime Consulting Physician Address: Address: [address] [place] [address] [address] [facility] [address]- [place] Name: Maurice Keyes MD Position: [facility] Outreach Member Role: PCP Address: Address: [address] [place] [phone]- [place] Name: Jeni Zavala RN Position: [facility] SN RN Member Role: Primary Care Nurse Name: Itzel Mcneil RN Position: [facility] RN Member Role: Primary Care Nurse Name: Kaur Tian RN Position: [facility] RN Member Role: Primary Care Nurse Care Team Related Persons Name: JESUS NARVAEZDIA Address: home [address] [place] [address] Name: UNKNOWN, DEFAULTED
--- OUTSIDE RECORDS SUMMARY | 2023-03-30 19:27 | XMS_ITS | Continuity of Care Document ---
Author Name Unknown Organization [facility] Address [address] [place] [phone]- Care Team Providers Care Industrial Engineering Manager Name Role Phone Tylor Odom MD, Maurice Primary Care Phys ician Encounter [facility] Date(s): 05/15/22 - 06/14/22 [facility] [address] [place] [address]- [place] Allergies, Adverse Reactions, Alerts No Known Allergies Medications allopurinol 300 mg oral tablet 300 mg, 1, tablet, By Mouth, Daily, # 30 tablet, Refills 0, Maintenance, 12/16/18 7:22:08 EDT Start Date: 12/16/18 Status: Ordered apixaban 5 mg oral tablet 1 tablet = 5 mg, By Mouth, 2 times a day, # 60 tablet, 5 Refills, Maintenance, 01/03/22 13:01:00 EST, Tablet, [facility]/pharmacy #[id number], 170, cm, 08/24/21 10:45:00 EDT, Height Start Date: 01/03/22 Stop Date: 07/02/22 Status: Ordered colchicine 0.6 mg oral tablet 0.3 mg, 0.5, tablet, By Mouth, Daily, # 45 tablet, Refills 1, Tot. Refills 1, Maintenance, :59:00 EST, Route to Pharmacy Electronically, [facility]/pharmacy #[id number], Partial fill upon patient request if the prescription is for a schedule II opioid drCarlos. Start Date: 04/26/21 Status: Ordered dapagliflozin 10 mg oral tablet 1 tablet = 10 mg, By Mouth, Daily, # 30 tablet, 11 Refills, Maintenance, 04/23/22 13:46:00 EST, Tablet, [facility]/pharmacy #[id number], Partial fill upon patient request if the prescription is for a schedule II opioid drug., 170, cm, 04/23/22 13:16:00 EST, Height Start Date: 04/23/22 Status: Ordered Entresto 24 mg-26 mg oral tablet 1 tablet, By Mouth, Every 12 hours, # 60 tablet, 11 Refills, Maintenance, 06/12/22 8:54:00 EDT, [facility], 30, TAKE 1 TABLET BY MOUTH EVERY 12 HOURS, 170, cm, 05/22/22 14:53:00 EDT, Height Start Date: 06/12/22 Status: Ordered spironolactone 25 mg oral tablet 12.5 mg, 0.5, tablet, By Mouth, Daily, # 15 tablet, Refills 11, Tot. Refills 11, Maintenance, 11/21/21 14:03:00 EDT, Route to Pharmacy Electronically, [facility]/pharmacy #[id number], 170, cm, 08/24/21 10:45:00 EDT, Height Start Date: 11/21/21 Status: Ordered Tab-A-Lizabeth with Iron oral tablet 1 tablet, By Mouth, Daily, # 30 tablet, 0 Refills, Maintenance, 07/25/20 15:43:00 EDT, Tablet, Partial fill upon patient request if the prescription is for a schedule II opioid drug. Start Date: 07/25/20 Status: Ordered torsemide 20 mg oral tablet 1 tablet = 20 mg, By Mouth, 2 times a day, # 180 tablet, 1 Refills, Maintenance, 05/15/22 9:35:00 EDT, [facility]/pharmacy #[id number], 170, cm, 04/23/22 13:16:00 EST, Height Start Date: 05/15/22 Stop Date: 11/11/22 Status: Ordered Problem List Condition Confirmation Course [...] Care Team Personnel Name: Benny Lim Position: [facility] Outreach Member Role: Lifetime Consulting Physician Name: Gabriele WHITING, Harinder Alcala Position: [facility] Renal MD Member Role: Lifetime Consulting Physician Address: Address: [address] [place] [address], [address] [place], [place] [id number]- Name: Maurice Keyes MD Position: S Outreach Member Role: PCP Address: Address: [address] [place] [id number]- Name: Jeni Zavala RN Position: S RN Member Role: Primary Care Nurse Name: Itzel Mcneil RN Position: S RN Member Role: Primary Care Nurse Name: Kaur Tian RN Position: S RN Member Role: Primary Care Nurse Care Team Related Persons Name: DYLLAN NARVAEZ Address: home [address] [place] [address] Name: UNKNOWN, DEFAULTED
--- OUTSIDE RECORDS SUMMARY | 2023-03-30 19:27 | XMS_ITS | Continuity of Care Document ---
Author Name Unknown Organization [facility] Address [address] [place] [address]- Care Team Providers Care Industrial Controls Technician Name Role Phone Tylor Odom MD, Maurice [facility] Date(s): 03/26/22 - 04/25/22 [facility] [address] [place] [address]- Allergies, Adverse Reactions, Alerts No Known Allergies Medications allopurinol 300 mg oral tablet 300 mg, 1, tablet, By Mouth, Daily, # 30 tablet, Refills 0, Maintenance, 12/16/18 7:22:08 EDT Start Date: 12/16/18 Status: Ordered apixaban 5 mg oral tablet 1 tablet = 5 mg, By Mouth, 2 times a day, # 60 tablet, 5 Refills, Maintenance, 01/03/22 13:01:00 EST, Tablet, [facility]/pharmacy #[id number], 170, cm, 08/24/21 10:45:00 EDT, Height Start Date: 01/03/22 Stop Date: 07/02/22 Status: Ordered colchicine 0.6 mg oral tablet 0.3 mg, 0.5, tablet, By Mouth, Daily, # 45 tablet, Refills 1, Tot. Refills 1, Maintenance, :59:00 EST, Route to Pharmacy Electronically, [facility]/pharmacy #[id number], Partial fill upon patient request if the prescription is for a schedule II opioid drCarlos. Start Date: 04/26/21 Status: Ordered dapagliflozin 10 mg oral tablet 1 tablet = 10 mg, By Mouth, Daily, # 30 tablet, 11 Refills, Maintenance, 04/23/22 13:46:00 EST, Tablet, [facility]/pharmacy #[id number], Partial fill upon patient request if the prescription is for a schedule II opioid drug., 170, cm, 04/23/22 13:16:00 EST, Height Start Date: 04/23/22 Status: Ordered Entresto 24 mg-26 mg oral tablet 1 tablet, By Mouth, Every 12 hours, # 60 tablet, 11 Refills, Maintenance, 03/26/22 14:35:00 EST, Tablet, [facility]/pharmacy #[id number], 1 tablet By Mouth Every 12 hours, 170, cm, 03/25/22 9:29:00 EST, Height Start Date: 03/26/22 Status: Ordered spironolactone 25 mg oral tablet 12.5 mg, 0.5, tablet, By Mouth, Daily, # 15 tablet, Refills 11, Tot. Refills 11, Maintenance, 11/21/21 14:03:00 EDT, Route to Pharmacy Electronically, [facility]/pharmacy #[id number], 170, cm, 08/24/21 10:45:00 EDT, Height [...] 2 times a day, # 60 tablet, 11 Refills, Maintenance, 10/19/20 11:56:00 EDT, [facility] 170, cm, 10/19/20 11:32:00 EDT, Height, 135.9, kg, 07/01/19 16:41:00 EDT, Dry Weight Start Date: 10/19/20 Stop Date: 10/14/21 Status: Ordered Problem List Condition Confirmation Course Effective Dates Status H ealt Status Informant Cardiomyopathy Confirmed Active CHF (congestive [...] Care Team Personnel Name: Benny Lim Position: [facility] Outreach Member Role: Lifetime Consulting Physician Name: Harinder Suazo MD Position: [facility] Renal MD Member Role: Lifetime Consulting Physician Address: Address: [address] [place] [address], [address] [place] [address]- [place] Name: Maurice Keyes MD Position: [facility] Outreach Member Role: PCP Address: Address: [address] [place] [address]- Name: Jeni Zavala RN Position: S RN Member Role: Primary Care Nurse Name: Itzel Mcneil RN Position: S RN Member Role: Primary Care Nurse Name: Kaur Tian RN Position: S RN Member Role: Primary Care Nurse Care Team Related Persons Name: DYLLAN NARVAEZ Address: home [address] [place] [id number] Name: UNKNOWN, DEFAULTED
--- OUTSIDE RECORDS SUMMARY | 2023-03-30 19:28 | XMS_ITS | Continuity of Care Document ---
Author Name Unknown Organization [facility] Address [address] [place] [phone]- Care Team Providers Care Appraisal Analyst Name Role Phone Tylor Odom MD, Maurice Primary Care Phys ician Encounter [facility] [place] Date(s): 12/30/22 - 01/29/23 [facility] [address] [place] [phone]- [place] Allergies, Adverse Reactions, Alerts No Known [...] Refills, Maintenance, 12/24/22 10:40:00 EDT, [id number], 170, cm, 08/23/22 14:14:00 EDT, Height Start Date: 12/24/22 Stop Date: 01/23/23 Status: Ordered Entresto 24 mg-26 mg oral tablet 1 tablet, By Mouth, Every 12 hours, # 60 tablet, 11 Refills, Maintenance, 06/12/22 8:54:00 EDT, [facility], 30, TAKE 1 TABLET BY MOUTH EVERY 12 HOURS, 170, cm, 05/22/22 14:53:00 EDT, Height Start Date: 06/12/22 Status: Ordered spironolactone 25 mg oral tablet 0.5, tablet, By Mouth, Daily, # 45 tablet, Refills 3, Maintenance, 10/17/22 12:31:00 EDT, Route to Pharmacy Electronically, [id number], 170, cm, 08/23/22 14:14:00 EDT, Height Start [...] 2 Refills, Maintenance, 10/07/22 16:00:00 EDT, [facility], 170, cm, 08/23/22 14:14:00 EDT, Height Start [...] Care Team Personnel Name: Benny Lim Position: [facility] Outreach Member Role: Lifetime Consulting Physician Name: Harinder Suazo MD Position: [facility] Renal MD Member Role: Lifetime Consulting Physician Address: Address: [address] [place] [address] [id number] [place] [address]- Name: Maurice Keyes MD Position: [facility] Outreach Member Role: PCP Address: Address: [address] [place] [address]- [place] Name: Jeni Zavala RN Position: [facility] RN Member Role: Primary Care Nurse Name: Itzel Mcneil RN Position: S RN Member Role: Primary Care Nurse Name: Kaur Tian RN Position: S RN Member Role: Primary Care Nurse Care Team Related Persons Name: DYLLAN NARVAEZ Address: home [address] [place] [address] Name: UNKNOWN, DEFAULTED
--- OUTSIDE RECORDS SUMMARY | 2023-03-30 19:28 | XMS_ITS | Continuity of Care Document ---
Author Name Unknown Organization [facility] Address [address] [place] [phone]- Care Team Providers Care Drying Oven Tender Name Role Phone Maurice Keyes MD Primary Care Phys ician [place] [facility] [place]19/23 [facility] [address] [place] [phone]- Attending Physician: Lopez Mccormick DO Admitting Physician: Lopez Mccormick DO Referring Physician: Maurice Keyes MD Allergies, Adverse Reactions, Alerts No Known Allergies Medications allopurinol 300 mg oral tablet 300 mg, 1, tablet, By Mouth, Daily, # 30 tablet, Refills 0, Maintenance, 12/16/18 7:22:08 EDT Start Date: 12/16/18 Status: Ordered colchicine 0.6 mg oral tablet 0.3 mg, 0.5, tablet, By Mouth, Daily, # 45 tablet, Refills 1, Tot. Refills 1, Maintenance, :59:00 EST, Route to Pharmacy Electronically, [facility]/pharmacy #[id number], Partial fill upon patient request if the prescription is for a schedule II opioid drMal.. Start Date: 04/26/21 Status: Ordered dapagliflozin 10 mg oral tablet 1 tablet = 10 mg, By Mouth, Daily, # 30 tablet, 11 Refills, Maintenance, 04/23/22 13:46:00 EST, Tablet, [facility]/pharmacy #[id number], Partial fill upon patient request if the prescription is for a schedule II opioid drug., 170, cm, 04/23/22 13:16:00 EST, Height Start Date: 04/23/22 Status: Ordered Eliquis 5 mg oral tablet 1 tablet, By Mouth, 2 times a day, # 60 tablet, 5 Refills, Maintenance, 12/24/22 10:40:00 EDT, [facility], 170, cm, 08/23/22 14:14:00 EDT, Height Start Date: 12/24/22 Stop Date: 01/23/23 Status: Ordered Entresto 24 mg-26 mg oral tablet 1 tablet, By Mouth, Every 12 hours, # 60 tablet, 11 Refills, Maintenance, 06/12/22 8:54:00 EDT, [facility], 30, TAKE 1 TABLET BY MOUTH EVERY 12 HOURS, 170, cm, 05/22/22 14:53:00 EDT, Height Start Date: 06/12/22 Status: Ordered spironolactone 25 mg oral tablet 0.5, tablet, By Mouth, Daily, # 45 tablet, Refills 3, Maintenance, 10/17/22 12:31:00 EDT, Route to Pharmacy Electronically, [facility], 170, cm, 08/23/22 14:14:00 EDT, Height Start [...] 2 Refills, Maintenance, 10/07/22 16:00:00 EDT, [facility], 170, cm, 08/23/22 14:14:00 EDT, Height Start [...] Care Team Personnel Name: Benny Lim Position: [facility] Outreach Member Role: Lifetime Consulting Physician Name: Gabriele WHITING, Harinder Alcala Position: [facility] Renal MD Member Role: Lifetime Consulting Physician Address: Address: [address] [place] [address] [address] [place] [address]- [place] Name: Maurice Keyes MD Position: [facility] Outreach Member Role: PCP Address: Address: [address] [place] [phone]- [place] Name: Jeni Zavala RN Position: [facility] SN RN Member Role: Primary Care Nurse Name: Itzel Mcneil RN Position: S RN Member Role: Primary Care Nurse Name: Kaur Tian RN Position: S RN Member Role: Primary Care Nurse Care Team Related Persons Name: DYLLAN NARVAEZ Address: home [address] [place] [address] Name: UNKNOWN, DEFAULTED
--- OUTSIDE RECORDS SUMMARY | 2023-03-30 19:28 | XMS_ITS | Continuity of Care Document ---
Author Name Unknown Organization [facility] Address [address] [place] [address]- Care Team Providers Care Assistant Infant Teacher Name Role Phone Tylor Odom MD, Maurice Primary Care Phys [facility] [place] [facility] [place] - 04/21/[address] [address] Attending Physician: Lopez Mccormick DO Admitting Physician: Lopez Mccormick DO Referring Physician: Lopez Mccormick DO Allergies, Adverse Reactions, Alerts No Known Allergies Medications allopurinol 300 mg oral tablet 300 mg, 1, tablet, By Mouth, Daily, # 30 tablet, Refills 0, Maintenance, 12/16/18 7:22:08 EDT Start Date: 12/16/18 Status: Ordered apixaban 5 mg oral tablet 1 tablet = 5 mg, By Mouth, 2 times a day, # 60 tablet, 5 Refills, Maintenance, 01/03/22 13:01:00 EST, Tablet, [facility]/pharmacy #[id number], 170, cm, 08/24/21 10:45:00 EDT, Height Start Date: 01/03/22 Stop Date: 07/02/22 Status: Ordered colchicine 0.6 mg oral tablet 0.3 mg, 0.5, tablet, By Mouth, Daily, # 45 tablet, Refills 1, Tot. Refills 1, Maintenance, :59:00 EST, Route to Pharmacy Electronically, [facility]/pharmacy #[id number], Partial fill upon patient request if the prescription is for a schedule II opioid . Start Date: 04/26/21 Status: Ordered dapagliflozin 10 mg oral tablet 1 tablet = 10 mg, By Mouth, Daily, # 30 tablet, 7 Refills, Maintenance, 10/10/20 17:45:00 EDT, Tablet, [facility]/pharmacy #[id number], Partial fill upon patient request if the prescription is for a schedule II opioid drug., 170, cm, 10/09/20 15:40:00 EDT, Height,... Start Date: 10/10/20 Status: Ordered Entresto 24 mg-26 mg oral tablet 1 tablet, By Mouth, Every 12 hours, # 60 tablet, 11 Refills, Maintenance, 03/26/22 14:35:00 EST, Tablet, [facility]/pharmacy #207, 1 tablet By Mouth Every 12 hours, 170, cm, 03/25/22 9:29:00 EST, Height Start Date: 03/26/22 Status: Ordered nabumetone 750 mg oral tablet TAKE 1 TABLET BY MOUTH TWICE A DAY NEEDED FOR PAIN Start Date: 07/01/19 Status: Ordered spironolactone 25 mg oral tablet 12.5 mg, 0.5, tablet, By Mouth, Daily, # 15 tablet, Refills 11, Tot. Refills 11, Maintenance, 11/21/21 14:03:00 EDT, [id number], cm, 08/24/21 10:45:00 EDT, Height Start Date: 11/21/21 Status: Ordered Tab-A-Lizabeth with Iron oral tablet 1 tablet, By Mouth, Daily, # 30 tablet, 0 Refills, Maintenance, 07/25/20 15:43:00 EDT, Tablet, Partial fill upon patient request if the prescription is for a schedule II opioid drug. Start Date: 07/25/20 Status: Ordered torsemide 20 mg oral tablet 2 tablet, By Mouth, 2 times a day, # 120 tablet, 11 Refills, Maintenance, 01/14/22 13:13:00 EST, [facility], 170, cm, 08/24/21 10:45:00 EDT, Height Start Date: 01/14/22 Status: Ordered torsemide 20 mg oral tablet 2 tablet = 40 mg, By Mouth, 2 times a day, # 120 tablet, 11 Refills, Maintenance, 10/19/20 11:56:00EDT, [facility], 170, cm, 10/19/20 11:32:00 EDT, Height, 135.9, kg, 07/01/19 16:41:00 EDT, Dry Weight Start Date: 10/19/20 Stop Date: 10/14/21 Status: Ordered Vitamin D3 1000 intl units oral tablet 1 tablet = 1,000 International_Units, By Mouth, Daily, # 30 tablet, 0 Refills, Maintenance, 12/16/18 7:21:35 EDT, Tablet Start Date: 12/16/18 Status: Ordered Problem List Condition Confirmation Course Effective Dates Status H ealth Status Informant Cardiomyopathy Confirmed Active CHF (congestive heart failure) Confirmed Active Gout Confirmed Active Severe obesity Confirmed Active Social History Social History Type Response Smoking Status Never (less than 100 in lifetime) entered on: 07/02/19 Sex Patient Care team information Care Team Personnel Name: Benny Lim Position: [facility] Outreach Member Role: Lifetime Consulting Physician Name: Gabriele WHITING, Harinder Alcala Position: [facility] Renal MD Member Role: Lifetime Consulting Physician Address: Address: [address] [place] [address], [address] [address] Name: Tylor Odom MD, Maurice Position: [facility] Outreach Member Role: PCP Address: Address: [address] [place] [address] Name: Jeni Zavala RN Position: S RN Member Role: Primary Care Nurse Name: Itzel Mcneil RN Position: S RN Member Role: Primary Care Nurse Name: Kaur Tian RN Position: S RN Member Role: Primary Care Nurse Care Team Related Persons Name: JESUS NARVAEZDIA Address: home [address] [place] [phone] Name: UNKNOWN, DEFAULTED
--- OUTSIDE RECORDS SUMMARY | 2023-03-30 19:28 | XMS_ITS | Continuity of Care Document ---
Author Name Unknown Organization [facility] Address [address] [place] [address]- Care Team Providers Care Die Drawing Checker Name Role Phone Tylor Odom MD, Maurice Primary Care Phys [facility] [place] [facility] [place] Date(s): 08/23/22 - 09/22/22 [facility] [address] [place] [address]- Attending Physician: Madison Bauer Admitting Physician: Madison Bauer Referring Physician: Madison Bauer Allergies, Adverse Reactions, Alerts No Known Allergies Medications allopurinol 300 mg oral tablet 300 mg, 1, tablet, By Mouth, Daily, # 30 tablet, Refills 0, Maintenance, 12/16/18 7:22:08 EDT Start Date: 12/16/18 Status: Ordered apixaban 5 mg oral tablet 1 tablet = 5 mg, By Mouth, 2 times a day, # 60 tablet, 5 Refills, Maintenance, 01/03/22 13:01:00 EST, Tablet, [facility]/pharmacy #207, 170, cm, 08/24/21 10:45:00 EDT, Height Start Date: 01/03/22 Stop Date: 07/02/22 Status: Ordered colchicine 0.6 mg oral tablet 0.3 mg, 0.5, tablet, By Mouth, Daily, # 45 tablet, Refills 1, Tot. Refills 1, Maintenance, :59:00 EST, [id number], Partial fill upon patient request if the prescription is for a schedule II opioid . Start Date: 04/26/21 Status: Ordered dapagliflozin 10 mg oral tablet 1 tablet = 10 mg, By Mouth, Daily, # 30 tablet, 11 Refills, Maintenance, 04/23/22 13:46:00 EST, Tablet, [id number], Partial fill upon patient request if the prescription is for a schedule II opioid drug., 170, cm, 04/23/22 13:16:00 EST, Height Start Date: 04/23/22 Status: Ordered Entresto 24 mg-26 mg oral tablet 1 tablet, By Mouth, Every 12 hours, # 60 tablet, 11 Refills, Maintenance, 06/12/22 8:54:00 EDT, [facility], 30, TAKE 1 TABLET BY MOUTH EVERY 12 HOURS, 170, cm, 05/22/22 14:53:00 EDT, Height Start Date: 06/12/22 Status: Ordered spironolactone 25 mg oral tablet 12.5 mg, 0.5, tablet, By Mouth, Daily, # 15 tablet, Refills 11, Tot. Refills 11, Maintenance, 11/21/21 14:03:00 EDT, Route to Pharmacy Electronically, [facility]/pharmacy #[id number], 170, cm, 08/24/21 10:45:00 EDT, Height [...] tablet, 1 Refills, Maintenance, 05/15/22 9:35:00 EDT, [facility]/pharmacy #[id number], 170, cm, 04/23/22 13:16:00 EST, Height [...] Care Team Personnel Name: Benny Lim Position: [facility] Outreach Member Role: Lifetime Consulting Physician Name: Gabriele WHITING, Harinder Alcala Position: [facility] Renal MD Member Role: Lifetime Consulting Physician Address: Address: [address] [place] [address], [address] [place] [address]- [place] Name: Maurice Keyes MD Position: [facility] Outreach Member Role: PCP Address: Address: [address] [place] [phone]- Name: Jeni Zavala RN Position: [facility] RN Member Role: Primary Care Nurse Name: Itzel Mcneil RN Position: S RN Member Role: Primary Care Nurse Name: Kaur Tian RN Position: [facility] RN Member Role: Primary Care Nurse Care Team Related Persons Name: JESUS NARVAEZDIA Address: home [address] [place] [phone] Name: UNKNOWN, DEFAULTED
[2023-03-30 19:37] VITALS: BP 128/72; PULSE 89; RESP 22; TEMP 36.7; O2SAT 98
[2023-03-30] MEDS: predniSONE 10 MG TABLET 50 MG PO (20:55)
== END 2023-03-30 21:00 | disposition home or self-care (01) ==
PROVIDERS: Emergency Provider Internal Medicine
DX: M10.022 Idiopathic gout, left elbow (principal); I44.7 Left bundle-branch block, unspecified; I44.0 Atrioventricular block, first degree
CPT/HCPCS: 73070; 93005; 99283; 99284

== ENCOUNTER → 2023-03-30 14:41 | Outpatient (BNV) | payer MEDICAID, SELFPAY | PROVIDERS: Emergency Provider Internal Medicine; Visit Provider Internal Medicine | DX: I44.0 Atrioventricular block, first degree (principal); I49.3 Ventricular premature depolarization | CPT/HCPCS: 93010 ==

== ENCOUNTER 2023-05-19 13:43 | Outpatient (AMB) | payer MEDICAID, SELFPAY ==
[2023-05-19 13:44] VITALS: BP 84/68; PULSE 83; O2SAT 97; BMI 49.8
--- NOTE | 2023-05-19 13:44 | HO.NEPHOV ---
HPI HPI Comments History of Present Illness Details Middle-aged man with obesity and cardiomyopathy and CKD. He has a history of SOILA in the past. Renal function is improved and returned to baseline. Today he has no specific complaints. He is on Torsemide 20mg BID and Furosemide 40 mg QD PFSH Medical History Gout Cardiomyopathy Dyspnea Pulmonary hypertension SINGH (obstructive sleep apnea) Social History Patient Tobacco Use Status: Tobacco use Unknown Vital Signs 05/19/23 13:44 Height 5 ft 7 in Weight 318 lb BMI 49.8 BP 84/68 L Blood Pressure Location Lt brachial Position Sitting Pulse 83 Pulse Source Pulse Oximeter Pulse Oximetry (%) 97 Oxygen Delivery Method Room Air Physical Exam Vital Signs: Last Vital Signs Pulse 83 05/19/23 13:44 BP 84/68 L 05/19/23 13:44 Pulse Ox 97 05/19/23 13:44 Oxygen Delivery Method Room Air 05/19/23 13:44 BMI result Body Mass Index 49.8 Const General: comfortable Nutritional Appearance: obese Orientation/consciousness: patient oriented x3 HEENT Head: No normal to inspection Mouth: moist mucous membranes Neck Neck: Yes supple and Yes no JVD Resp Auscultation: clear to auscultation bilaterally, no rales and rub present Cardio Jugular venous distension: no JVD Palpation: no palpable S3 and no palpable S4 Heart sounds: no rubs GI Palpation (GI): Soft to palpation and nontender Percussion: No Fluid wave present General: Yes no CVA tenderness Back/Spine/Pelvis Back: no CVA tenderness Skin General skin exam: no rashes or lesions noted Neuro General: patient oriented x3 Extrem General: Yes no pedal edema and No clubbing Assessment & Plan Assessment & Plan (1) CKD (chronic kidney disease) stage 3, GFR 30-59 ml/min: Code(s): N18.30 - Chronic kidney disease, stage 3 unspecified (2) Cardiomyopathy: Code(s): I42.9 - Cardiomyopathy, unspecified Plan Middle-aged man with CKD in setting obesity and cardiomyopathy. He had an episode of SOILA which has resolved. At present renal function is at baseline. Goal is to slow the progression of renal disease. Continue to avoid hypotension and nephrotoxins including NSAIDs. Discussed importance of weight loss and low-sodium diet. Stay on Torsemide No need for Furosemide BP relatively low but symptomatic . Orders: Orders Comprehensive Met. Panel Today N18.30 - Chronic kidney disease, stage 3 unspecified, N18.9 - Chronic kidney disease, unspecified Complete Blood Count no Diff Today N18.30 - Chronic kidney disease, stage 3 unspecified Uric Acid Today N18.30 - Chronic kidney disease, stage 3 unspecified Medications: Discontinued prednisone Discontinued Reason: Order 40 mg (2 x 20 mg) PO DAILY 4 days 8 tabs 0RF Coding Level of Care Code Est Pt Level 4 (96174) Diagnoses CKD (chronic kidney disease) stage 3, GFR 30-59 ml/min N18.30 Cardiomyopathy I42.9 Results Reviewed Nephrology Results: Hgb 14.8 g/dl (14.0-18.0) 02/10/23 WBC 8.7 X10*3/uL (4.8-10.8) 02/10/23 Plt Count 254 X10*3/uL (160-400) 02/10/23 Sodium 142 mmol/L (135-145) 02/10/23 Potassium 4.7 mmol/L (3.3-5.1) 02/10/23 Chloride 106 mmol/L (96-108) 02/10/23 Carbon Dioxide 26 mmol/L (22-29) 02/10/23 BUN 37 mg/dL (9-16) H 02/10/23 Creatinine 1.32 mg/dL (0.5-1.4) 02/10/23 Calcium 9.8 mg/dL (8.4-10.2) 02/10/23 Urine Protein Negative mg/dL (Neg-Trace) 02/10/23 Urine Creatinine 31.06 mg/dL 02/10/23
== END 2023-05-19 14:02 | disposition home or self-care (01) ==
PROVIDERS: PCP Internal Medicine; Visit Provider Internal Medicine Hypertension Specialist
DX: N18.30 Chronic kidney disease, stage 3 unspecified (principal); I42.9 Cardiomyopathy, unspecified
CPT/HCPCS: 99214

== ENCOUNTER → 2023-05-19 13:43 | Outpatient (BNVA) | payer MEDICAID, SELFPAY | PROVIDERS: PCP Internal Medicine; Visit Provider Internal Medicine Hypertension Specialist | DX: N18.30 Chronic kidney disease, stage 3 unspecified (principal); I42.9 Cardiomyopathy, unspecified | CPT/HCPCS: 99212 ==

== ENCOUNTER 2023-09-15 13:05 | Outpatient (REF) | payer MEDICAID, SELFPAY ==
[2023-09-15 14:11] LABS: MANUAL DIFF FLAG NO
[2023-09-15 14:39] LABS: Basophils Percent Auto 0.5 % (0-2); Eosinophils Absolute Auto 0.3 X10*3/uL (0.0-0.4); Eosinophils Percent Auto 3.5 % (0-4); Hematocrit 44.4 % (42.0-52.0); Hemoglobin 13.8 g/dl (14.0-18.0); Imm Gran Abs Auto 0.02 X10*3/uL (0.00-0.03); Imm Gran Pct Auto 0.2 % (0.0-0.4); Lymphocytes Absolute Auto 1.1 X10*3/uL (1.2-4.9); Mean Corpuscular HGB Conc 31.1 g/dl (31.0-36.0); Mean Corpuscular Hemoglobin 30.1 pg (27.0-33.0); Mean Corpuscular Volume 96.7 fL (80.0-98.0); Mean Platelet Volume 11.7 fL (9.4-12.4); Monocytes Absolute Auto 0.6 X10*3/uL (0.1-1.2); Monocytes Percent Auto 7.2 % (2-11); Neutrophils Absolute Auto 6.3 x10*3/uL (2.0-8.3); Neutrophils Percent Auto 75.6 % (45-73); Platelet Count 197 X10*3/uL (160-400); Red Blood Count 4.59 X10*6/uL (4.60-5.80); White Blood Count 8.4 X10*3/uL (4.8-10.8)
[2023-09-15 15:00] LABS: Alanine Aminotransferase 15 U/L (0-40); Albumin Level 4.2 g/dL (3.5-5.0); Alkaline Phosphatase 81 U/L (39-117); Anion Gap 14 (12-20); Aspartate Amino Transferase 20 U/L (5-37); Bilirubin Total 0.7 mg/dL (0.0-1.0); Blood Urea Nitrogen 29 mg/dL (9-16); Calcium 9.9 mg/dL (8.4-10.2); Carbon Dioxide 26 mmol/L (22-29); Chloride 108 mmol/L (96-108); Estimated Glomerular Filt Rate 46; Glucose Random 89 mg/dL (60-115); Potassium 4.5 mmol/L (3.3-5.1); Sodium 143 mmol/L (135-145); Total Protein 7.7 g/dL (6.5-8.0); Uric Acid 12.6 mg/dL (3.4-7.0)
== END 2023-09-15 13:06 | disposition home or self-care (01) ==
LOC: HO.LAB 13:05
PROVIDERS: PCP Internal Medicine; Visit Provider Internal Medicine Hypertension Specialist
DX: N18.30 Chronic kidney disease, stage 3 unspecified (principal); I42.9 Cardiomyopathy, unspecified
CPT/HCPCS: 36415; 80053; 84550; 85025; 99212

== ENCOUNTER 2023-09-15 13:05 | Outpatient (AMB) | payer MEDICAID, SELFPAY ==
[2023-09-15 13:16] VITALS: BP 82/64; PULSE 87; O2SAT 98; BMI 47.5
--- NOTE | 2023-09-15 13:16 | HO.NEPHOV ---
Vital Signs 09/15/23 13:16 Height 5 ft 7 in Weight 303 lb BMI 47.5 BP 82/64 L Blood Pressure Location Lt brachial Position Sitting Pulse 87 Pulse Source Pulse Oximeter Pulse Oximetry (%) 98 Oxygen Delivery Method Room Air Intake Visit Reasons: CKD/ 3 MO FU/Conf Clock And Watch Hands Painter Required: No Accompanied by: Self / Same As Patient Allergies No Known Allergies [No Known Allergies*] Allergy (Verified 09/15/23 13:18) HPI Comments Details: Middle-aged man with obesity and cardiomyopathy and CKD. He has a history of SOILA in the past. Renal function is improved and returned to baseline. Today he has no specific complaints. COUNT INCLUDES [facility] Medical History Gout Cardiomyopathy Dyspnea Pulmonary hypertension SINGH (obstructive sleep apnea) Social History Patient Tobacco Use Status: Tobacco use Unknown Physical Exam Vital Signs: Last Vital Signs Pulse 87 09/15/23 13:16 BP 82/64 L 09/15/23 13:16 Pulse Ox 98 09/15/23 13:16 Oxygen Delivery Method Room Air 09/15/23 13:16 BMI result Body Mass Index 47.5 Neck Neck: Yes supple Resp Auscultation: clear to auscultation bilaterally Cardio Palpation: no palpable S3 Heart sounds: no rubs GI Palpation (GI): Soft to palpation Auscultation: normal bowel sounds Neuro Motor exam (neuro): no asterixis Results Reviewed Nephrology Results: Hgb 13.8 g/dl (14.0-18.0) L 09/15/23 WBC 8.4 X10*3/uL (4.8-10.8) 09/15/23 Plt Count 197 X10*3/uL (160-400) 09/15/23 Sodium 143 mmol/L (135-145) 09/15/23 Potassium 4.5 mmol/L (3.3-5.1) 09/15/23 Chloride 108 mmol/L (96-108) 09/15/23 Carbon Dioxide 26 mmol/L (22-29) 09/15/23 BUN 29 mg/dL (9-16) H 09/15/23 Creatinine 1.58 mg/dL (0.5-1.4) H 09/15/23 Calcium 9.9 mg/dL (8.4-10.2) 09/15/23 Urine Protein Negative mg/dL (Neg-Trace) 02/10/23 Urine Creatinine 31.06 mg/dL 02/10/23 Assessment & Plan Assessment & Plan (1) CKD (chronic kidney disease) stage 3, GFR 30-59 ml/min: Code(s): N18.30 - Chronic kidney disease, stage 3 unspecified Category: Medical (2) Cardiomyopathy: Code(s): I42.9 - Cardiomyopathy, unspecified Category: Medical Plan Middle-aged man with CKD in setting obesity and cardiomyopathy. He had an episode of SOILA which has resolved. At present renal function is at baseline. Goal is to slow the progression of renal disease. Continue to avoid hypotension and nephrotoxins including NSAIDs. Discussed importance of weight loss and low-sodium diet. Stay on current diuretics BP relatively low but symptomatic . Orders: Orders Basic Metabolic Panel Today N18.30 - Chronic kidney disease, stage 3 unspecified Complete Blood Count Auto Diff Today N18.30 - Chronic kidney disease, stage 3 unspecified Coding Level of Care Code Est Pt Level 4 (57660) Diagnoses CKD (chronic kidney disease) stage 3, GFR 30-59 ml/min N18.30 Cardiomyopathy I42.9
== END 2023-09-15 13:46 | disposition home or self-care (01) ==
PROVIDERS: PCP Internal Medicine; Visit Provider Internal Medicine Hypertension Specialist
DX: N18.30 Chronic kidney disease, stage 3 unspecified (principal); I42.9 Cardiomyopathy, unspecified
CPT/HCPCS: 99214

== ENCOUNTER 2023-10-07 17:03 | Emergency (ER) | payer MEDICAID, SELFPAY ==
--- NOTE | ~2023-10-07 | XR_ITS ---
EXAMINATION: XR FOOT, LEFT CLINICAL INFORMATION: Left foot pain and swelling COMPARISON: None available. TECHNIQUE: AP, lateral, and oblique views of the left foot. FINDINGS: No acute fractures. Generalized soft tissue edema seen. Some mild periarticular erosive changes seen at the head of the first metatarsal and second metatarsal which could represent underlying gout arthropathy XR/XR foot LT min 3V IMPRESSION: No acute process. Soft tissue edema.
[2023-10-07 17:15] VITALS: BP 130/76; PULSE 99; O2SAT 97
[2023-10-07 17:16] VITALS: BP 94/58; PULSE 96; RESP 18; TEMP 36.6; O2SAT 98; BMI 47.0
--- NOTE | 2023-10-07 17:16 | ED_ITS ---
HPI - Extremity Problem General Chief complaint: Extremity Injury, Lower Stated complaint: LEG PAIN X5 DAYS Time Seen by Provider: 10/07/23 18:51 Source: patient Mode of arrival: ambulatory Limitations: no limitations History of Present Illness ED Provider: Dr. Zulema Eason HPI Narrative: Patient comes to the emergency room complaining of severe pain on the left foot. Patient states that he also has pain on the right side of the ankle, elbows bilaterally and wrists. Patient states that he is known to have gout. A few days ago patient was in the picnic getting a large amount of meat. Patient already takes allopurinol. Patient denies any fever chills, no recent injuries. Related Data Home Medications ?Medication ?Instructions ?Recorded ?Confirmed allopurinol 300 mg tablet 150 mg PO DAILY 12/15/19 03/14/20 apixaban 5 mg tablet (Eliquis) 5 mg PO BID 12/15/19 03/14/20 carvedilol 3.125 mg tablet 3.125 mg PO BID 12/15/19 03/14/20 sacubitril 24 mg-valsartan 26 mg 1 tab PO BID 12/15/19 03/14/20 tablet (Entresto) dapagliflozin propanediol 10 mg 10 mg PO DAILY 05/19/23 tablet torsemide 20 mg tablet 20 mg PO BID 05/19/23 Allergies Allergy/AdvReac Type Severity Reaction Status Date / Time No Known Allergies Allergy Verified 10/07/23 17:27 [No Known Allergies*] Review of Systems 2 Review of Systems: Constitutional : No Weight loss, No Fever, No Chills, No Night Sweats, No Fatigue, No Malaise ENT/Mouth : No Hearing loss, No Ear Pain, No Nasal Congestion, No Sinus Pain, No Hoarseness, No sore throat, No Rhinorrhea, No Swallowing Difficulty Eyes: No Eye Pain, No Swelling, No Redness, No Foreign Body, No Discharge, No Vision Changes Cardiovascular : No Chest Pain, No SOB, No Dyspnea on Exertion, No Orthopnea, No Edema, No Palpitations Respiratory : No Cough, No Sputum, No Wheezing, No Smoke Exposure, No Dyspnea Gastrointestinal : No Nausea, No Vomiting, No Diarrhea, No Constipation, No abdominal Pain, No Hematochezia, No Melena Genitourinary : no irregular bleeding, No Dysuria, No Urinary Frequency, No Hematuria, No Urinary Incontinence, No Urgency, No Flank Pain, No Urinary Flow Changes, No Hesitancy Musculoskeletal : Complaining of bilateral elbow wrist and ankle pain. Patient states the pain is much worse in the left foot around the toe area. No Myalgias, No Joint Swelling Skin : No Skin Lesions, No rash Neuro : No Weakness, No Numbness, No Paresthesias, No Loss of Consciousness, No Dizziness, No Headache Psych : No Anxiety/Panic, No Depression, No SI/HI/AH/VH, No Social Issues, Heme/Lymph: No Bruising, No Bleeding,No Lymphadenopathy Endocrine : No Polyuria, No Polydipsia, No Temperature Intolerance [facility] Past Medical History Medical History Gout Cardiomyopathy Dyspnea Pulmonary hypertension SINGH (obstructive sleep apnea) Social History Social History Patient Tobacco Use Status: Tobacco use Unknown Advance Directives: No Advance Directives Information Provided: No Do you have a plan to hurt others: No Plan Physical Exam 2 Vital Signs: Vital Signs: Last Vital Signs Temp 97.9 F 10/07/23 17:16 Pulse 96 10/07/23 17:16 Resp 18 10/07/23 17:16 BP 94/58 L 10/07/23 17:16 Pulse Ox 98 10/07/23 17:16 O2 Del Method Room Air 10/07/23 17:16 BMI result Body Mass Index 47.0 Const: Other: Appearance: Alert. Oriented X3. No acute distress. Eyes: Pupils equal, round and reactive to light. ENT: Pharynx normal. Neck: Normal inspection. Neck supple. No lymph nodes noted. No crepitus CVS: Normal heart rate and rhythm. Pulses normal. Normal S1 and S2 Respiratory: No respiratory distress. Breath sounds normal. No Wheezing. No rales Abdomen: Soft and nontender. No rigidity. No distention. Skin: Skin warm and dry. Normal skin color. Normal skin turgor. No erythema Extremities: No lower extremity edema. No Lacerations. No Rash, very significant pain to palpation over the left foot Neuro: Oriented X 3. No motor deficit. No sensory deficit. Moving all extremities. No slurred speech. CN 2 through 12 grossly intact Psych: calm, cooperative, normal affect Course Course Course Narrative: This is a Rapid Medical Examination (RME) performed by Krystal Mujica PA-C in triage. Full HPI, ROS, assessment and treatment plan per primary provider in the Main ED. 57 yo male with history of CKD, gout, cardiomyopathy, pulm HTN, SINGH who presents to the ER via EMS for evaluation of bilateral foot pain, L>R for the last 5 days. feels similar to prior gout attacks. takes allopurinol. can no longer ambulate due to the pain. left foot is very tender to touch with erythema and warmth to the distal foot/bases of digits 2-5. no MTP joint tenderness or swelling. usual location for gout. Plan: XR left foot. labs. Medications Administered Discontinued Medications Generic Name Dose Route Start Last Admin Trade Name Freq PRN Reason Stop Dose Admin Ketorolac Tromethamine 60 mg 10/07/23 19:06 10/07/23 19:13 Ketorolac Tromethamine 60 Mg/2 Ml Vial IM 10/07/23 19:07 Not Given ONCE ONE Medical Decision Making Medical Decision Making [facility] Narrative: My interpretation of labs: Patient's white blood cell count is 13.6, likely reactive leukocytosis. Chemistry within normal limits -patient is on Eliquis, we will avoid NSAIDs at this time. -patient was given here a dose of p.o. prednisone and colchicine Differential Diagnosis Differential Diagnoses: The differential diagnosis associated with the presentation includes (Gout, pseudogout, cellulitis) Lab Data [facility] Lab Attestation statement: I reviewed the patient's lab results. 10/07/23 17:59 10/07/23 17:59 Labs: Lab Results 10/07/23 Range/Units 17:59 WBC 13.2 H (4.8-10.8) X10*3/uL RBC 4.44 L (4.60-5.80) X10*6/uL Hgb 13.7 L (14.0-18.0) g/dl Hct 40.9 L (42.0-52.0) % MCV 92.1 (80.0-98.0) fL MCH 30.9 (27.0-33.0) pg MCHC 33.5 (31.0-36.0) g/dl RDW 12.6 (11.0-16.0) % Plt Count 176 (160-400) X10*3/uL MPV 11.3 (9.4-12.4) fL Immature Gran % (Auto) 0.4 (0.0-0.4) % Neut % (Auto) 86.4 H (45-73) % Lymph % (Auto) 4.5 L (20-40) % [place] % (Auto) 8.3 (2-11) % Eos % (Auto) 0.2 (0-4) % Baso % (Auto) 0.2 (0-2) % Lymph # (Auto) 0.6 L (1.2-4.9) X10*3/uL [place] # (Auto) 1.1 (0.1-1.2) X10*3/uL Eos # (Auto) 0.0 (0.0-0.4) X10*3/uL Baso # (Auto) 0.0 (0.0-0.2) X10*3/uL Abs Immat Gran (auto) 0.05 H (0.00-0.03) X10*3/uL Absolute Neuts (auto) 11.4 H (2.0-8.3) x10*3/uL Absolute Nucleated RBC 0.000 (0.0-0.012) X10*3/uL Nucleated RBC % (auto) 0.0 (0.0-0.2) /100WBC ESR 62 H (0-15) MM/HR Sodium 136 (135-145) mmol/L Potassium 3.6 (3.3-5.1) mmol/L Chloride 102 (96-108) mmol/L Carbon Dioxide 21 L (22-29) mmol/L Anion Gap 17 (12-20) BUN 21 H (9-16) mg/dL Creatinine 1.33 (0.5-1.4) mg/dL Estim Creat Clear Calc 82.5 Estimated GFR 56 Random Glucose 112 (60-115) mg/dL Uric Acid 6.7 (3.4-7.0) mg/dL Calcium 9.7 (8.4-10.2) mg/dL Magnesium 1.7 (1.6-2.6) mg/dL Total Bilirubin 1.9 H (0.0-1.0) mg/dL Direct Bilirubin 0.6 H (0.0-0.5) mg/dL AST 13 (5-37) U/L ALT 8 (0-40) U/L Alkaline Phosphatase 64 (39-117) U/L C-Reactive Protein 17.05 H (< or = 0.50) mg/dL Total Protein 7.6 (6.5-8.0) g/dL Albumin 3.8 (3.5-5.0) g/dL Discharge Plan Discharge Clinical Impression: Gout Patient Disposition: Home, Self-Care Instructions: Gout (ED), Low Purine Diet (ED), Swollen Ankle Joint (ED) Additional Instructions: Please follow-up with your primary care physician tomorrow. If you have any worsening or new symptoms, please return to the emergency room or call 911 Prescriptions: No Action carvedilol 3.125 mg tablet 3.125 mg PO BID Rx Instructions: must administer with a meal/food allopurinol 300 mg tablet 150 mg PO DAILY Eliquis 5 mg tablet 5 mg PO BID Entresto 24-26 mg tablet 1 tab PO BID dapagliflozin propanediol 10 mg tablet 10 mg PO DAILY torsemide 20 mg tablet 20 mg PO BID Print Language: Syriac
[2023-10-07 18:04] LABS: MANUAL DIFF FLAG NO
[2023-10-07 18:06] LABS: Basophils Percent Auto 0.2 % (0-2); Eosinophils Percent Auto 0.2 % (0-4); Hematocrit 40.9 % (42.0-52.0); Hemoglobin 13.7 g/dl (14.0-18.0); Imm Gran Abs Auto 0.05 X10*3/uL (0.00-0.03); Imm Gran Pct Auto 0.4 % (0.0-0.4); Lymphocytes Absolute Auto 0.6 X10*3/uL (1.2-4.9); Lymphocytes Percent Auto 4.5 % (20-40); Mean Corpuscular HGB Conc 33.5 g/dl (31.0-36.0); Mean Corpuscular Hemoglobin 30.9 pg (27.0-33.0); Mean Corpuscular Volume 92.1 fL (80.0-98.0); Mean Platelet Volume 11.3 fL (9.4-12.4); Monocytes Absolute Auto 1.1 X10*3/uL (0.1-1.2); Monocytes Percent Auto 8.3 % (2-11); Neutrophils Absolute Auto 11.4 x10*3/uL (2.0-8.3); Neutrophils Percent Auto 86.4 % (45-73); Platelet Count 176 X10*3/uL (160-400); Red Blood Count 4.44 X10*6/uL (4.60-5.80); Red Cell Distribution Width 12.6 % (11.0-16.0); White Blood Count 13.2 X10*3/uL (4.8-10.8)
[2023-10-07 18:21] LABS: Alanine Aminotransferase 8 U/L (0-40); Albumin Level 3.8 g/dL (3.5-5.0); Alkaline Phosphatase 64 U/L (39-117); Anion Gap 17 (12-20); Aspartate Amino Transferase 13 U/L (5-37); Bilirubin Direct 0.6 mg/dL (0.0-0.5); Bilirubin Total 1.9 mg/dL (0.0-1.0); Blood Urea Nitrogen 21 mg/dL (9-16); C Reactive Protein 17.05 mg/dL (< or = 0.50); Calcium 9.7 mg/dL (8.4-10.2); Carbon Dioxide 21 mmol/L (22-29); Chloride 102 mmol/L (96-108); Creatinine Clr Calc Pharmacy 82.5; Estimated Glomerular Filt Rate 56; Glucose Random 112 mg/dL (60-115); Magnesium 1.7 mg/dL (1.6-2.6); Potassium 3.6 mmol/L (3.3-5.1); Sodium 136 mmol/L (135-145); Total Protein 7.6 g/dL (6.5-8.0); Uric Acid 6.7 mg/dL (3.4-7.0)
[2023-10-07 18:44] LABS: Erythrocyte Sedimentation Rate 62 MM/HR (0-15)
--- NOTE | 2023-10-07 19:13 | PC.NURSE ---
per MD Eason hold toradol as pt is taking eliquis
[2023-10-07] MEDS: predniSONE 20 MG TABLET 60 MG PO (19:24)
[2023-10-07] MEDS: Colchicine 0.6 MG TABLET 1.2 MG PO (19:41)
[2023-10-07 20:07] VITALS: BP 98/60; PULSE 94; RESP 19; TEMP 37.2; O2SAT 99
[2023-10-07 22:36] VITALS: BP 98/60; PULSE 94; RESP 19; TEMP 37.2; O2SAT 99
== END 2023-10-07 22:37 | disposition home or self-care (01) ==
PROVIDERS: Physician Assistant; Emergency Provider Emergency Medicine
DX: M10.9 Gout, unspecified (principal); M79.672 Pain in left foot; Z79.01 Long term (current) use of anticoagulants
CPT/HCPCS: 36415; 73630; 80048; 80076; 83735; 84550; 85025; 85652; 86140; 96372; 99282; 99284

== ENCOUNTER 2023-11-25 13:38 | Emergency (ER) | payer MEDICAID, SELFPAY ==
--- NOTE | ~2023-11-25 | XR_ITS ---
EXAMINATION: XR HAND/WRIST, LEFT CLINICAL INFORMATION: Gout COMPARISON: Left hand 12/13/2014 TECHNIQUE: PA, lateral, and oblique views of the left hand and wrist. FINDINGS: There is been progressive severe arthritic change at the first CMC joint and the trapezium trapezoid joint. Some milder degenerative changes seen at second CMC joint. No significant disease seen at the interphalangeal joints or the MCP joints and radiocarpal joints appear normal. There is no chondrocalcinosis. No soft tissue calcification or tophi are seen. XR/XR hand wrist LT IMPRESSION: Progressive degenerative changes at the first CMC joint and trapezium trapezoid joint. Electronically signed by: John Malhotra MD 11/25/2023 03:59 PM EDT
--- NOTE | ~2023-11-25 | US_ITS ---
EXAMINATION: US TRIPLEX UPPER EXTREMITY, LEFT CLINICAL INFORMATION: Left arm pain/swelling, question DVT COMPARISON: None available. TECHNIQUE: Color-flow triplex imaging with spectral analysis and compression Doppler was performed on the left upper extremity. FINDINGS: The left internal jugular, subclavian, and axillary veins are patent and free of thrombus. The imaged segment of the left brachiocephalic vein is patent. Spectral doppler waveforms are normal. The brachial, basilic, cephalic, radial, and ulnar veins are patent and compressible. US/US venous duplex UE LT IMPRESSION: No evidence of deep venous thrombosis involving the left upper extremity. Electronically signed by: Aubrey Conner MD 11/25/2023 08:54 PM EDT
[2023-11-25 14:17] VITALS: BP 103/67; PULSE 104; RESP 18; TEMP 36.3; O2SAT 95; BMI 39.0
--- NOTE | 2023-11-25 14:18 | ED_ITS ---
HPI - General Adult General Chief complaint: Extremity Problem Stated complaint: L hand injury Time Seen by Provider: 11/25/23 17:24 Source: patient Mode of arrival: ambulatory Limitations: no limitations History of Present Illness ED Provider: Luis Carlos OROSCO HPI narrative: 58 yoldmale with pmh of gout, CKD, Pulmonary hypertensino, cardiomyopathy presents to the ED for left hand pain for the past month. patient states having gout exacrebaton for one month, but could not leave his house due to knee and foot issues. Patient states painful and hot. She states history of gout. Patient denies any chest pain or shortness of breath. Patient denies any recent trauma Related Data Home Medications ?Medication ?Instructions ?Recorded ?Confirmed allopurinol 300 mg tablet 150 mg PO DAILY 12/15/19 03/14/20 apixaban 5 mg tablet (Eliquis) 5 mg PO BID 12/15/19 03/14/20 carvedilol 3.125 mg tablet 3.125 mg PO BID 12/15/19 03/14/20 sacubitril 24 mg-valsartan 26 mg 1 tab PO BID 12/15/19 03/14/20 tablet (Entresto) dapagliflozin propanediol 10 mg 10 mg PO DAILY 05/19/23 tablet torsemide 20 mg tablet 20 mg PO BID 05/19/23 Previous Rx's ?Medication ?Instructions ?Recorded colchicine 0.6 mg capsule 0.6 mg PO BID 2 days #4 caps 11/25/23 oxycodone 5 mg capsule 5 mg PO TID PRN pain 3 days #9 caps 11/25/23 prednisone 20 mg tablet 40 mg (2 x 20 mg) PO DAILY 5 days 11/25/23 #10 tabs Allergies Allergy/AdvReac Type Severity Reaction Status Date / Time No Known Allergies Allergy Verified 11/25/23 14:19 [No Known Allergies*] Review of Systems 2 Review of Systems: left hand pain Yes all other systems are reviewed and are negative [facility] Past Medical History Medical History Gout Cardiomyopathy Dyspnea Pulmonary hypertension SINGH (obstructive sleep apnea) Social History Social History Patient Tobacco Use Status: Tobacco use Unknown Advance Directives: No Advance Directives Information Provided: No Do you have a plan to hurt others: No Plan Physical Exam ED Vital Signs: Vital Signs - 24 hr 11/25/23 14:17 11/25/23 17:15 11/25/23 19:19 Temperature 97.4 F 99.2 F 99.2 F Pulse Rate 104 H 183 H 93 Respiratory Rate 18 19 20 Blood Pressure 103/67 102/82 144/74 H Pulse Oximetry 95 98 99 Oxygen Delivery Method Room Air Room Air Room Air 11/25/23 21:53 11/25/23 22:10 Temperature 98.3 F Pulse Rate 86 86 Respiratory Rate 18 18 Blood Pressure 98/62 98/62 Pulse Oximetry 98 98 Oxygen Delivery Method Room Air Room Air BMI result Body Mass Index 39.0 Const General: cooperative, healthy appearing, comfortable, no acute distress, well developed, alert, awake and Physically active Orientation/consciousness: patient oriented x3 [facility] Head: Yes normal to inspection, Yes No palpable skull fracture present, Yes normocephalic, Yes atraumatic and No abrasion Eyes General: appearance normal, both eyes and all related structures Neck Neck: Yes normal visual inspection, Yes full ROM, Yes no lymphadenopathy, Yes no meningeal signs, Yes trachea midline, Yes supple, No anterior neck swelling and No tender Chest Chest palpation & inspection: normal inspection of the chest and normal palpation of entire chest wall Resp Effort & Inspection: normal respiratory effort and able to speak in complete sentences Auscultation: clear to auscultation bilaterally Cardio Jugular venous distension: no JVD Heart sounds: S1 normal heart sound present and S2 normal heart sound present GI Inspection: Yes normal to inspection Palpation (GI): Soft to palpation, not firm, nontender, no guarding and not rigid General: No CVA tenderness and Yes no CVA tenderness Back/Spine/Pelvis Back: no CVA tenderness, No CVA tenderness and No back tenderness Skin General skin exam: no rashes or lesions noted, elasticity normal and turgor normal Neuro General: patient oriented x3, gait normal, tone normal, moves all extremities, Normal light touch and pain sensation, no meningeal signs, no focal motor deficits, CN's II-XI intact bilaterally and normal sensation to monofilament Extrem General: Yes normal to inspection, Yes full ROM and Yes capillary refill normal Elbow/forearm/wrist images: 2 1. Positive for warmth, tenderness. Negative for redness. negative for crepitus or ecchymosis. Negative for bluish discoloration. Vascular/neuro exam intact. Motor exam intact but limited due to pain. Psych Appearance: grossly normal, well kempt and not disheveled Course Course Course Narrative: RME, this is a rapid medical exam performed by Alfonso Rodriguez please refer to primary provider for complete H&P- 58-year-old male presents for evaluation of left hand pain. He thinks he may have gout. His left hand and wrist as edematous. Plan for x-ray to rule out traumatic injury. 8:11pm: Patient's x-ray shows severe arthritis. Patient's heart rate on the monitor 93 to 104. White blood cell count 13.6. Last visits similar episode for gout patient's white blood cell count was elevated. Patient has chronic elevation of CRP. Patient has chronic elevation of ESR. Uric acid negative. Patient last visit for similar episode also had negative uric acid was treated as gout. We will send for ultrasound to rule out DVT. NSAIDs Solu-Medrol [place] ordered. Sign out to and PCM Reevaluation(s) Reevaluation #1: US/US venous duplex UE LT IMPRESSION: No evidence of deep venous thrombosis involving the left upper extremity Stable for discharge home Time: 21:38 Medications Administered Discontinued Medications Generic Name Dose Route Start Last Admin Trade Name Freq PRN Reason Stop Dose Admin Colchicine 1.2 mg 11/25/23 17:35 11/25/23 19:14 Colchicine 0.6 Mg Tablet PO 11/25/23 17:36 1.2 mg ONCE ONE Administration Ketorolac Tromethamine 30 mg 11/25/23 17:33 11/25/23 18:31 Ketorolac Tromethamine 30 Mg/Ml Vial IVPUSH 11/25/23 17:34 30 mg ONCE ONE Administration Methylprednisolone Sodium Succinate 125 mg 11/25/23 17:33 11/25/23 18:31 Methylprednisolone Sod Succ 125 Mg/2 Ml Vial IVPUSH 11/25/23 17:34 125 mg ONCE ONE Administration Medical Decision Making Medical Decision Making MDM Narrative: 58-year-old male history of gout presents to ED for left hand got exacerbation. I was called to bedside by tech team who states patient's heart rate on 190 on portable blue monitor. Patient was shaking violently from pain and crying. Monitor reading of 190 most likely inaccurate. EKG was done immediately and just shows sinus tach heart rate 104. Since then patient placed on heart monitor heart rate 93- 104. Will order Toradol Solu-Medrol and caused change. Will do labs. Differential count exacerbation. X-ray shows severe arthritis. X-ray negative for osteomyelitis. Not suspecting septic joint. 8:21. 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 f/u US. NOt suspecting cellulitits. Patient has chronic Elevated ESR and CRP. WBC also chronically elevated from last visti. Patient had similiar lab results and presentaiton from last visit and was diagnosed as gout. Patient still has high uric acid diet. NOt suspecting osteomylitits, arterial occlusion, compartment syndrome, fracture, or dislcoaction. Differential Diagnosis Differential Diagnoses: The differential diagnosis associated with the presentation includes (gout, cellulittis, DVT) Admission/Observation Consideration of admission/observation: Escalation of care including admission/observation considered Lab Data MDM Lab Attestation statement: I reviewed the patient's lab results. 11/25/23 17:52 11/25/23 17:52 Labs: Lab Results 11/25/23 Range/Units 17:52 WBC 13.6 H (4.8-10.8) X10*3/uL RBC 4.09 L (4.60-5.80) X10*6/uL Hgb 12.3 L (14.0-18.0) g/dl Hct 37.7 L (42.0-52.0) % MCV 92.2 (80.0-98.0) fL MCH 30.1 (27.0-33.0) pg MCHC 32.6 (31.0-36.0) g/dl RDW 14.4 (11.0-16.0) % Plt Count 227 D (160-400) X10*3/uL MPV 10.9 (9.4-12.4) fL Immature Gran % (Auto) 0.3 (0.0-0.4) % Neut % (Auto) 83.9 H (45-73) % Lymph % (Auto) 6.8 L (20-40) % [place] % (Auto) 8.2 (2-11) % Eos % (Auto) 0.6 (0-4) % Baso % (Auto) 0.2 (0-2) % Lymph # (Auto) 0.9 L (1.2-4.9) X10*3/uL [place] # (Auto) 1.1 (0.1-1.2) X10*3/uL Eos # (Auto) 0.1 (0.0-0.4) X10*3/uL Baso # (Auto) 0.0 (0.0-0.2) X10*3/uL Abs Immat Gran (auto) 0.04 H (0.00-0.03) X10*3/uL Absolute Neuts (auto) 11.4 H (2.0-8.3) x10*3/uL Absolute Nucleated RBC 0.000 (0.0-0.012) X10*3/uL Nucleated RBC % (auto) 0.0 (0.0-0.2) /100WBC ESR 81 H (0-15) MM/HR Sodium 139 (135-145) mmol/L Potassium 3.9 (3.3-5.1) mmol/L Chloride 105 (96-108) mmol/L Carbon Dioxide 23 (22-29) mmol/L Anion Gap 15 (12-20) BUN 16 (9-16) mg/dL Creatinine 0.98 (0.5-1.4) mg/dL Estim Creat Clear Calc 99.7 Estimated GFR > 60 Random Glucose 100 (60-115) mg/dL Uric Acid 6.5 (3.4-7.0) mg/dL Calcium 9.8 (8.4-10.2) mg/dL Total Bilirubin 1.0 (0.0-1.0) mg/dL AST 13 (5-37) U/L ALT 7 (0-40) U/L Alkaline Phosphatase 77 (39-117) U/L C-Reactive Protein 14.08 H (< or = 0.50) mg/dL Total Protein 8.2 H (6.5-8.0) g/dL Albumin 3.9 (3.5-5.0) g/dL Independent Interpretation I performed an independent interpretation of an: Plain X-Ray and Ultrasound Radiology Impression Discussion of test interpretation with radiology: I have reviewed the radiologist's reading. Independent Historian Clinical information obtained from an independent historian. History obtained from or confirmed by: Parent () and Other (patient) External Record Review External record reviewed: Other (prior vistis) Prescription Management I considered prescription management with: Pain Medication Discharge Plan Discharge Clinical Impression: Gout Patient Disposition: Home, Self-Care Instructions: Low Purine Diet (ED), Gout (ED) Additional Instructions: Physical exam and history indicates gout exacerbation. You will be discharged with medications for gout. Recommend follow-up with your primary care provider. Return to ED for any worsening pain, fever, chills, chest pain, shortness of breath, bluish black discoloration, redness, red streaks, pus discharge, foul odor, or other concerning symptoms. Continue taking your allopurinol at home. Prescriptions: New prednisone 20 mg tablet 40 mg PO DAILY 5 Days Qty: 10 0RF colchicine 0.6 mg capsule 0.6 mg PO BID 2 Days Qty: 4 0RF oxycodone 5 mg capsule 5 mg PO TID PRN (Reason: pain) 3 Days Qty: 9 0RF Rx Instructions: Partial Fill upon patient request. No Action carvedilol 3.125 mg tablet 3.125 mg PO BID Rx Instructions: must administer with a meal/food allopurinol 300 mg tablet 150 mg PO DAILY Eliquis 5 mg tablet 5 mg PO BID Entresto 24-26 mg tablet 1 tab PO BID dapagliflozin propanediol 10 mg tablet 10 mg PO DAILY torsemide 20 mg tablet 20 mg PO BID Interventions: ED Discharge Assessment Last Done: 11/25/23 22:10 Discharge Date/Time: 11/25/23 22:10 Print Language: Divehi
--- OUTSIDE RECORDS SUMMARY | 2023-11-25 17:00 | XMS_ITS | Continuity of Care Document ---
Author Organization [facility] Address [address] [place] [address]- Care Team Providers Care Vocational Psychologist Name Role Phone Tylor Odom MD, Maurice Primary Care Phys [facility] Encounter [facility] Date(s): 10/21/23 - 11/20/23 [facility] [address] [place] [id number]- Allergies, Adverse Reactions, Alerts No Known Allergies Medications allopurinol 300 mg oral tablet 300 mg, 1, tablet, By Mouth, Daily, # 30 tablet, Refills 0, Maintenance, 12/16/18 7:22:08 EDT Start Date: 12/16/18 Status: Ordered colchicine 0.6 mg oral tablet 0.3 mg, 0.5, tablet, By Mouth, Daily, # 45 tablet, Refills 1, Tot. Refills 1, Maintenance, :59:00 EST, Route to Pharmacy Electronically, [facility]/pharmacy #[id number], Partial fill upon patient request if the prescription is for a schedule II opioid dr... Start Date: 04/26/21 Status: Ordered dapagliflozin 10 mg oral tablet 1 tablet = 10 mg, By Mouth, Daily, # 30 tablet, 11 Refills, Maintenance, 04/23/22 13:46:00 EST, Tablet, [facility]/pharmacy #[id number], Partial fill upon patient request if the prescription is for a schedule II opioid drug., 170, cm, 04/23/22 13:16:00 EST, Height Start Date: 04/23/22 Status: Ordered DAPAGLIFLOZIN 10 MG TABLET DAPAGLIFLOZIN 10 MG TABLET, 1, tablet, By Mouth, Daily, # 30 tablet, 11 Refills, Maintenance, 05/05/23 8:10:00 EDT, 170, cm, 08/23/22 14:14:00 EDT, Height Start Date: 05/05/23 Status: Ordered Eliquis 5 mg oral tablet 1 tablet, By Mouth, 2 times a day, # 60 tablet, 5 Refills, Maintenance, 12/24/22 10:40:00 EDT, [id number], 170, cm, 08/23/22 14:14:00 EDT, Height Start Date: 12/24/22 Stop Date: 01/23/23 Status: Ordered Entresto 24 mg-26 mg oral tablet 1 tablet, By Mouth, Every 12 hours, # 60 tablet, 11 Refills, Maintenance, 04/04/23 11:59:00 EST, [facility], 30, 1 tablet By Mouth Every 12 hours, 170, cm, 08/23/22 14:14:00 EDT, Height Start Date: 04/04/23 Status: Ordered spironolactone 25 mg oral tablet 0.5, tablet, By Mouth, Daily, # 45 tablet, Refills 3, Tot. Refills 3, Maintenance, 10/21/23 12:18:00 EDT, Route to Pharmacy Electronically, [facility]/pharmacy #[id number], 170, cm, 09/30/23 14:04:00 EDT, Height Start Date: 10/21/23 Status: Ordered Tab-A-Lizabeth with Iron oral tablet 1 tablet, By Mouth, Daily, # 30 tablet, 0 Refills, Maintenance, 07/25/20 15:43:00 EDT, Tablet, Partial fill upon patient request if the prescription is for a schedule II opioid drug. Start Date: 07/25/20 Status: Ordered torsemide 20 mg oral tablet 1 tablet, By Mouth, 2 times a day, # 180 tablet, 2 Refills, Maintenance, 08/06/23 8:39:00 EDT, [id number], 170, cm, 07/07/23 14:11:00 EDT, Height Start Date: 08/06/23 Status: Ordered Problem List Condition Confirmation Course [...] Care Team Personnel Name: Benny Lim Position: [facility] Outreach Member Role: Lifetime Consulting Physician Name: Gabriele WHITING, Harinder Alcala Position: [facility] Renal MD Member Role: Lifetime Consulting Physician Address: Address: [address] [place] [address] [address] [facility] [place] [id number]- [place] Name: Maurice Keyes MD Position: [facility] Outreach Member Role: PCP Address: Address: [address] [place] [id number]- Name: Jeni Zavala RN Position: [facility] SN RN Member Role: Primary Care Nurse Name: Itzel Mcneil RN Position: [facility] RN Member Role: Primary Care Nurse Name: Kaur Tian RN Position: [facility] RN Member Role: Primary Care Nurse Care Team Related Persons Name: JESUS NARVAEZDIA Address: home [address] [place] [address] Name: UNKNOWN, DEFAULTED
--- OUTSIDE RECORDS SUMMARY | 2023-11-25 17:01 | XMS_ITS | Continuity of Care Document ---
Author Organization [facility] Address [address] [place] [id number]- Care Team Providers Care Consumer Sales Representative Name Role Phone Tylor Odom MD, Maurice Primary Care Phys [facility] Encounter [facility] Date(s): 09/29/23 - 10/29/23 [facility] [address] [place] [id number]- Attending Physician: Madison Bauer Admitting Physician: Madison [...] Maintenance, :59:00 EST, Route to Pharmacy Electronically, [facility]/pharmacy #[id number], Partial fill upon patient request if the prescription is for a schedule II opioid drCarlos. Start Date: 04/26/21 Status: Ordered dapagliflozin 10 mg oral tablet 1 tablet = 10 mg, By Mouth, Daily, # 30 tablet, 11 Refills, Maintenance, 04/23/22 13:46:00 EST, Tablet, [facility]/pharmacy #[id number], Partial fill upon patient request [...] Refills, Maintenance, 12/24/22 10:40:00 EDT, [id number], 170, cm, 08/23/22 14:14:00 EDT, Height Start Date: 12/24/22 Stop Date: 01/23/23 Status: Ordered Entresto 24 mg-26 mg oral tablet 1 tablet, By Mouth, Every 12 hours, # 60 tablet, 11 Refills, Maintenance, 04/04/23 11:59:00 EST, [facility], 30, 1 tablet By Mouth Every 12 hours, 170, cm, 08/23/22 14:14:00 EDT, Height Start Date: 04/04/23 Status: Ordered spironolactone 25 mg oral tablet 0.5, tablet, By Mouth, Daily, # 45 tablet, Refills 3, Tot. Refills 3, Maintenance, 10/21/23 12:18:00 EDT, Route to Pharmacy Electronically, [facility]/pharmacy #[id number], 170, cm, 09/30/23 14:04:00 EDT, Height [...] Refills, Maintenance, 08/06/23 8:39:00 EDT, [id number], 170, cm, 07/07/23 14:11:00 EDT, Height Start [...] Care team information Care Team Personnel Name: Lori Limis Position: [facility] Outreach Member Role: Lifetime Consulting Physician Name: Gabriele WHITING, Harinder Alcala Position: [facility] Renal MD Member Role: Lifetime Consulting Physician Address: Address: [address] [place] [address] [id number] [facility] [place] [address]- Name: Maurice Keyes MD Position: [facility] Outreach Member Role: PCP Address: Address: [address] [place] [id number]- Name: Jeni Zavala RN Position: [facility] SN RN Member Role: Primary Care Nurse Name: Itzel Mcneil RN Position: [facility] RN Member Role: Primary Care Nurse Name: Kaur Tian RN Position: [facility] RN Member Role: Primary Care Nurse Care Team Related Persons Name: JESUS NARVAEZDIA Address: home [address] [place] [address] Name: UNKNOWN, DEFAULTED
[2023-11-25 17:15] VITALS: BP 102/82; PULSE 183; RESP 19; TEMP 37.3; O2SAT 98
--- NOTE | 2023-11-25 17:22 | ECG_ITS ---
Test Reason : tachycardia Blood Pressure : / mmHG Vent. Rate : 104 BPM Atrial Rate : 104 BPM P-R Int : 184 ms QRS Dur : 162 ms QT Int : 378 ms P-R-T Axes : 048 -59 080 degrees QTc Int : 497 ms Sinus tachycardia with occasional Premature ventricular complexes Left axis deviation Left bundle branch block Abnormal ECG When compared with ECG of 30-MAR-2023 19:30, NC interval has decreased Heart rate has increased Referred By: Luis Carlos Dias Electronically Signed By:ABIEL PISANO
[2023-11-25 17:57] LABS: MANUAL DIFF FLAG NO
[2023-11-25 18:00] LABS: Basophils Percent Auto 0.2 % (0-2); Eosinophils Absolute Auto 0.1 X10*3/uL (0.0-0.4); Eosinophils Percent Auto 0.6 % (0-4); Hematocrit 37.7 % (42.0-52.0); Hemoglobin 12.3 g/dl (14.0-18.0); Imm Gran Abs Auto 0.04 X10*3/uL (0.00-0.03); Imm Gran Pct Auto 0.3 % (0.0-0.4); Lymphocytes Absolute Auto 0.9 X10*3/uL (1.2-4.9); Lymphocytes Percent Auto 6.8 % (20-40); Mean Corpuscular HGB Conc 32.6 g/dl (31.0-36.0); Mean Corpuscular Hemoglobin 30.1 pg (27.0-33.0); Mean Corpuscular Volume 92.2 fL (80.0-98.0); Mean Platelet Volume 10.9 fL (9.4-12.4); Monocytes Absolute Auto 1.1 X10*3/uL (0.1-1.2); Monocytes Percent Auto 8.2 % (2-11); Neutrophils Absolute Auto 11.4 x10*3/uL (2.0-8.3); Neutrophils Percent Auto 83.9 % (45-73); Platelet Count 227 X10*3/uL (160-400); Red Blood Count 4.09 X10*6/uL (4.60-5.80); Red Cell Distribution Width 14.4 % (11.0-16.0); White Blood Count 13.6 X10*3/uL (4.8-10.8)
[2023-11-25 18:15] LABS: Alanine Aminotransferase 7 U/L (0-40); Albumin Level 3.9 g/dL (3.5-5.0); Alkaline Phosphatase 77 U/L (39-117); Anion Gap 15 (12-20); Aspartate Amino Transferase 13 U/L (5-37); Blood Urea Nitrogen 16 mg/dL (9-16); C Reactive Protein 14.08 mg/dL (< or = 0.50); Calcium 9.8 mg/dL (8.4-10.2); Carbon Dioxide 23 mmol/L (22-29); Chloride 105 mmol/L (96-108); Creatinine Clr Calc Pharmacy 99.7; Estimated Glomerular Filt Rate > 60; Glucose Random 100 mg/dL (60-115); Potassium 3.9 mmol/L (3.3-5.1); Sodium 139 mmol/L (135-145); Total Protein 8.2 g/dL (6.5-8.0); Uric Acid 6.5 mg/dL (3.4-7.0)
[2023-11-25] MEDS: Ketorolac Tromethamine 30 MG/ML VIAL IVPUSH (18:31)
[2023-11-25] MEDS: methylPREDNISolone Sod Succ 125 MG/2 ML VIAL IVPUSH (18:31)
[2023-11-25 18:43] LABS: Erythrocyte Sedimentation Rate 81 MM/HR (0-15)
[2023-11-25] MEDS: Colchicine 0.6 MG TABLET 1.2 MG PO (19:14)
[2023-11-25 19:19] VITALS: BP 144/74; PULSE 93; RESP 20; TEMP 37.3; O2SAT 99
[2023-11-25 21:53] VITALS: BP 98/62; PULSE 86; RESP 18; O2SAT 98
[2023-11-25 22:10] VITALS: BP 98/62; PULSE 86; RESP 18; TEMP 36.8; O2SAT 98
== END 2023-11-25 22:10 | disposition home or self-care (01) ==
PROVIDERS: Physician Assistant; Emergency Provider Internal Medicine; PCP Internal Medicine
DX: M10.9 Gout, unspecified (principal); R00.0 Tachycardia, unspecified; M79.602 Pain in left arm
CPT/HCPCS: 36415; 73110; 73130; 80053; 84550; 85025; 85652; 86140; 93005; 93971; 96374; 96375; 99284; J1885; J2919

== ENCOUNTER 2024-01-05 11:52 | Outpatient (REF) | payer MEDICAID, SELFPAY ==
[2024-01-05 14:32] LABS: Rheumatoid Factor < 13.0 IU/mL (<15.0)
[2024-01-06 19:53] LABS: Cyclic Citrullinated Peptide <16 UNITS
== END 2024-01-05 11:53 | disposition home or self-care (01) ==
LOC: HO.CHCLDS 11:52
PROVIDERS: Visit Provider Internal Medicine
DX: M25.532 Pain in left wrist (principal)
CPT/HCPCS: 36415; 86200; 86431

== ENCOUNTER 2024-01-08 14:56 | Outpatient (REF) | payer MEDICAID, SELFPAY | END 2024-01-08 14:57 | disposition home or self-care (01) | LOC: HO.XRAY 14:56 | PROVIDERS: PCP Internal Medicine; Visit Provider Internal Medicine | DX: M25.562 Pain in left knee (principal); M25.532 Pain in left wrist; G89.29 Other chronic pain | CPT/HCPCS: 73110; 73564 ==

== ENCOUNTER 2024-01-19 12:55 | Outpatient (AMB) | payer MEDICAID, SELFPAY ==
--- NOTE | 2024-01-19 13:12 | HO.NEPHOV ---
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 He has a history of SOILA in the past. Renal function is improved and returned to baseline. Today he has no specific complaints. 01/19/24 Had gout. Treated with Prednisone/Colchicine/Allopurinol [facility] Medical History Gout Cardiomyopathy Dyspnea Pulmonary hypertension SINGH (obstructive sleep apnea) Social History Patient Tobacco Use Status: Tobacco use Unknown Physical Exam Vital Signs: Last Vital Signs Pulse 97 01/19/24 13:13 BP 86/64 L 01/19/24 13:13 Pulse Ox 92 01/19/24 13:13 Oxygen Delivery Method Room Air 01/19/24 13:13 BMI result Body Mass Index 45.1 Neck Neck: Yes supple Resp Auscultation: clear to auscultation bilaterally Cardio Palpation: no palpable S3 Heart sounds: no rubs GI Palpation (GI): Soft to palpation Auscultation: normal bowel sounds Neuro Motor exam (neuro): no asterixis Results Reviewed Nephrology Results: Hgb 12.3 g/dl (14.0-18.0) L 11/25/23 WBC 13.6 X10*3/uL (4.8-10.8) H 11/25/23 Plt Count 227 X10*3/uL (160-400) 11/25/23 Sodium 139 mmol/L (135-145) 11/25/23 Potassium 3.9 mmol/L (3.3-5.1) 11/25/23 Chloride 105 mmol/L (96-108) 11/25/23 Carbon Dioxide 23 mmol/L (22-29) 11/25/23 BUN 16 mg/dL (9-16) 11/25/23 Creatinine 0.98 mg/dL (0.5-1.4) 11/25/23 Calcium 9.8 mg/dL (8.4-10.2) 11/25/23 Urine Protein Negative mg/dL (Neg-Trace) 02/10/23 Urine Creatinine 31.06 mg/dL 02/10/23 Assessment & Plan Assessment & Plan (1) CKD (chronic kidney disease) stage 3, GFR 30-59 ml/min: Code(s): N18.30 - Chronic kidney disease, stage 3 unspecified Category: Medical (2) Cardiomyopathy: Code(s): I42.9 - Cardiomyopathy, unspecified Category: Medical Plan Middle-aged man with CKD in setting obesity and cardiomyopathy. He had an episode of SOILA which has resolved. At present renal function is at baseline. Goal is to slow the progression of renal disease. Continue to avoid hypotension and nephrotoxins including NSAIDs. Discussed importance of weight loss and low-sodium diet. Stay on current diuretics BP relatively low but symptomatic . Gout Under control Stay on low purine diet along with Allopurinol . Orders: Orders Basic Metabolic Panel 6 Months I42.9 - Cardiomyopathy, unspecified, N18.30 - Chronic kidney disease, stage 3 unspecified Uric Acid 6 Months I42.9 - Cardiomyopathy, unspecified, N18.30 - Chronic kidney disease, stage 3 unspecified Medications: Discontinued prednisone Discontinued Reason: Patient Completed Course 40 mg (2 x 20 mg) PO DAILY 5 days 10 tabs 0RF Coding Level of Care Code Est Pt Level 4 (10136) Diagnoses CKD (chronic kidney disease) stage 3, GFR 30-59 ml/min N18.30 Cardiomyopathy I42.9
[2024-01-19 13:13] VITALS: BP 86/64; PULSE 97; O2SAT 92; BMI 45.1
== END 2024-01-19 13:25 | disposition home or self-care (01) ==
PROVIDERS: PCP Internal Medicine; Visit Provider Internal Medicine Hypertension Specialist
DX: N18.30 Chronic kidney disease, stage 3 unspecified (principal); I42.9 Cardiomyopathy, unspecified
CPT/HCPCS: 99214

== ENCOUNTER → 2024-01-19 12:55 | Outpatient (BNVA) | payer MEDICAID, SELFPAY | PROVIDERS: PCP Internal Medicine; Visit Provider Internal Medicine Hypertension Specialist | DX: I42.9 Cardiomyopathy, unspecified (principal); N18.30 Chronic kidney disease, stage 3 unspecified | CPT/HCPCS: 99212 ==

== ENCOUNTER 2024-03-17 16:07 | Emergency (ER) | payer MEDICAID, SELFPAY ==
--- NOTE | ~2024-03-17 | XR_ITS ---
CLINICAL HISTORY: pain and swelling 4 view right hand Comparison: None Findings: Bones intact. No dislocations. No significant arthritic change. No erosions. There is a 2 mm radiopaque foreign body in the 2nd digit at the level of the base of the middle phalanx laterally. Soft tissue swelling of the dorsum of the hand. IMPRESSION: 1. No acute osseous findings. 2. Punctate radiopaque foreign body in the 2nd digit. 3. Soft tissue swelling at the dorsum of the hand. This document has been electronically signed by: Georgia Guillermo MD on 03/17/2024 18:12:52
[2024-03-17 16:19] VITALS: BP 113/67; PULSE 92; RESP 18; TEMP 36.6; O2SAT 97; BMI 46.4
--- NOTE | 2024-03-17 16:19 | ED.GENADULT ---
HPI - General Adult General Chief complaint: Extremity Injury, Upper Stated complaint: Gout L Hand Time Seen by Provider: 03/17/24 19:55 Source: patient Mode of arrival: ambulatory Limitations: no limitations History of Present Illness ED Provider: Dr. Donnie Parra HPI narrative: 58-year-old male with a history of gout, chronic kidney disease, cardiomyopathy, hypertension, obstructive sleep apnea who presents emergency department for evaluation of 4 or 5 days of pain to his right hand. The patient states the right hand is gotten progressively swollen, red and painful. He states that the pain feels similar to his gout pain. The patient states he was had gout in his feet, ankles, left elbow and left hand but never in his right hand. Patient states the pain is severe in his 12/03. He denied fever, chills, chest pain, nausea, vomiting. Patient does not use injection drugs. Related Data Home Medications ?Medication ?Instructions ?Recorded ?Confirmed allopurinol 300 mg tablet 150 mg PO DAILY 12/15/19 01/19/24 apixaban 5 mg tablet (Eliquis) 5 mg PO BID 12/15/19 01/19/24 carvedilol 3.125 mg tablet 3.125 mg PO BID 12/15/19 01/19/24 sacubitril 24 mg-valsartan 26 mg 1 tab PO BID 12/15/19 01/19/24 tablet (Entresto) dapagliflozin propanediol 10 mg 10 mg PO DAILY 05/19/23 01/19/24 tablet torsemide 20 mg tablet 20 mg PO BID 05/19/23 01/19/24 Previous Rx's ?Medication ?Instructions ?Recorded colchicine 0.6 mg capsule 0.6 mg PO BID 2 days #4 caps 11/25/23 oxycodone 5 mg capsule 5 mg PO TID PRN pain 3 days #9 caps 11/25/23 morphine 15 mg immediate release 15 mg PO Q8H PRN pain #10 tabs 03/17/24 tablet prednisone 20 mg tablet 60 mg (3 x 20 mg) PO DAILY 5 days 03/17/24 #15 tabs Allergies Allergy/AdvReac Type Severity Reaction Status Date / Time No Known Allergies Allergy Verified 03/17/24 16:21 [No Known Allergies*] Review of Systems Review of Systems: Yes all other systems are reviewed and are negative PMFSH Past Medical History Medical History Gout Cardiomyopathy Dyspnea Pulmonary hypertension SINGH (obstructive sleep apnea) Social History Social History Patient Tobacco Use Status: Tobacco use Unknown Advance Directives: No Advance Directives Information Provided: No Do you have a plan to hurt others: No Plan Physical Exam ED Vital Signs: Vital Signs - 24 hr 03/17/24 16:19 Temperature 97.9 F Pulse Rate 92 Respiratory Rate 18 Blood Pressure 113/67 Pulse Oximetry 97 Oxygen Delivery Method Room Air BMI result Body Mass Index 46.4 Vital signs were normal Exam: Extremities: The patient's right hand is swollen with the swelling being greater in the dorsal aspect of his hand in the palmar aspect, patient has exquisite tenderness with palpation over the MCP joints of the wrist as well as over the metacarpal joints. Patient was extremities neurovascularly intact Course Course Course Narrative: This is a rapid medical exam performed by Aly Giordano NP: Additional HPI, ROS, PE not included below will be deferred to primary provider. Patient is a 58-year-old male with history of gout, cardiomyopathy, CKD 3, pulmonary HTN, SINGH, on Eliquis presenting with complaint of right hand pain and swelling. States feels similar to prior gout flares. Denies injury. Plan: labs Medical Decision Making Medical Decision Making MDM Narrative: 58-year-old male with a history of gout, chronic kidney disease, cardiomyopathy, hypertension, obstructive sleep apnea who presents emergency department for evaluation of 4 or 5 days of pain to his right hand. Patient states his pain is similar to his gout pain that has had in the past in his left hand but he was never had this pain in the right hand. He had no concerning systemic symptoms. Physical examination did reveal erythema and exquisite tenderness with palpation of the joints of in his left hand and wrist. Differential diagnosis: ?Includes but is not limited to gout, cellulitis, inflammatory arthritis, osteoarthritis Course: 20:15 My interpretation patient's laboratory evaluation is as follows: WBC was elevated 12,400 with 82 neutrophils. CMP was unremarkable except for an elevated BUN of 25 and elevated bilirubin of 1.3. CRP is elevated 15.13. ESR is elevated at 53. Patient was examination and laboratory evaluation is consistent with acute gout of the right wrist and hand. The patient was given prednisone 60 mg orally here in the emergency department and a prescription for prednisone 60 mg once a day for 5 days. He was also advised to take Tylenol and for pain not relieved by Tylenol he was prescribed morphine 15 mg every 8 hours as needed for pain dispense 10. He was given printed and verbal instructions and discharged home. Admission/Observation Consideration of admission/observation: Escalation of care including admission/observation considered (Yes) Lab Data [facility] Lab Attestation statement: I reviewed the patient's lab results. 03/17/24 16:37 03/17/24 16:37 Labs: Lab Results 03/17/24 Range/Units 16:37 WBC 12.4 H (4.8-10.8) X10*3/uL RBC 4.41 L (4.60-5.80) X10*6/uL Hgb 13.3 L (14.0-18.0) g/dl Hct 40.1 L (42.0-52.0) % MCV 90.9 (80.0-98.0) fL MCH 30.2 (27.0-33.0) pg MCHC 33.2 (31.0-36.0) g/dl RDW 14.1 (11.0-16.0) % Plt Count 217 (160-400) X10*3/uL MPV 11.6 (9.4-12.4) fL Immature Gran % (Auto) 0.4 (0.0-0.4) % Neut % (Auto) 82.1 H (45-73) % Lymph % (Auto) 7.9 L (20-40) % Leake % (Auto) 8.7 (2-11) % Eos % (Auto) 0.7 (0-4) % Baso % (Auto) 0.2 (0-2) % Lymph # (Auto) 1.0 L (1.2-4.9) X10*3/uL Leake # (Auto) 1.1 (0.1-1.2) X10*3/uL Eos # (Auto) 0.1 (0.0-0.4) X10*3/uL Baso # (Auto) 0.0 (0.0-0.2) X10*3/uL Abs Immat Gran (auto) 0.05 H (0.00-0.03) X10*3/uL Absolute Neuts (auto) 10.2 H (2.0-8.3) x10*3/uL Absolute Nucleated RBC 0.000 (0.0-0.012) X10*3/uL Nucleated RBC % (auto) 0.0 (0.0-0.2) /100WBC ESR 53 H (0-15) MM/HR Sodium 139 (135-145) mmol/L Potassium 3.8 (3.3-5.1) mmol/L Chloride 107 (96-108) mmol/L Carbon Dioxide 22 (22-29) mmol/L Anion Gap 14 (12-20) BUN 25 H (9-16) mg/dL Creatinine 1.19 (0.5-1.4) mg/dL Estim Creat Clear Calc 90.4 Estimated GFR > 60 Random Glucose 103 (60-115) mg/dL Uric Acid 6.7 (3.4-7.0) mg/dL Calcium 9.6 (8.4-10.2) mg/dL Total Bilirubin 1.3 H (0.0-1.0) mg/dL AST 20 (5-37) U/L ALT 8 (0-40) U/L Alkaline Phosphatase 76 (39-117) U/L C-Reactive Protein 15.13 H (< or = 0.50) mg/dL Total Protein 8.1 H (6.5-8.0) g/dL Albumin 3.9 (3.5-5.0) g/dL Independent Interpretation I performed an independent interpretation of an: Plain X-Ray Interpretation: My independent interpretation the patient's right hand x-ray is as follows: No acute fracture, significant soft tissue swelling Radiology Impression Discussion of test interpretation with radiology: I have reviewed the radiologist's reading. Radiologist Impression: 4 view right hand Findings: Bones intact. No dislocations. No significant arthritic change. No erosions. There is a 2 mm radiopaque foreign body in the 2nd digit at the level of the base of the middle phalanx laterally. Soft tissue swelling of the dorsum of the hand. IMPRESSION: 1. No acute osseous findings. 2. Punctate radiopaque foreign body in the 2nd digit. 3. Soft tissue swelling at the dorsum of the hand. This document has been electronically signed by: Georgia Guillermo MD on 03/17/2024 18:12:52 Discharge Plan Discharge Clinical Impression: Acute gout of right hand Patient Disposition: Home, Self-Care Instructions: Gout (ED) Additional Instructions: Your revealed an elevated white blood cell count and an elevated inflammatory markers which is consistent with gout. The x-ray of your hand revealed no broken bones but did reveal inflammation of your hand again consistent with gout. Take prednisone 20 mg pills, 3 pills once a day for 5 days. While you ?are taking prednisone, do not take any NSAIDs (Motrin, Advil, ibuprofen, Aleve, naproxen). Take Tylenol (acetaminophen) 2 pills every 6 hours as needed for pain. For pain not relieved by prednisone or Tylenol take morphine 15 mg pills, 1 pill every 6 hours as needed for pain. This medication will make you sleepy, do not drive or work while taking this medication. Morphine is a narcotic medication and can be addicting. If you are concerned about addiction you can ask the pharmacist for less pills or do not get this prescription filled. Follow-up with your doctor in 2 days. Please return to the emergency department if your symptoms get worse or if you develop any symptoms that are concerning to you. Prescriptions: New prednisone 20 mg tablet 60 mg PO DAILY 5 Days Qty: 15 0RF morphine 15 mg tablet 15 mg PO Q8H PRN (Reason: pain) Qty: 10 0RF Rx Instructions: Partial Fill upon patient request. No Action colchicine 0.6 mg capsule 0.6 mg PO BID 2 Days Qty: 4 0RF oxycodone 5 mg capsule 5 mg PO TID PRN (Reason: pain) 3 Days Qty: 9 0RF Rx Instructions: Partial Fill upon patient request. carvedilol 3.125 mg tablet 3.125 mg PO BID Rx Instructions: must administer with a meal/food allopurinol 300 mg tablet 150 mg PO DAILY Eliquis 5 mg tablet 5 mg PO BID Entresto 24-26 mg tablet 1 tab PO BID dapagliflozin propanediol 10 mg tablet 10 mg PO DAILY torsemide 20 mg tablet 20 mg PO BID Print Language: Brazilian
[2024-03-17 16:43] LABS: MANUAL DIFF FLAG NO
[2024-03-17 16:52] LABS: Basophils Percent Auto 0.2 % (0-2); Eosinophils Absolute Auto 0.1 X10*3/uL (0.0-0.4); Eosinophils Percent Auto 0.7 % (0-4); Hematocrit 40.1 % (42.0-52.0); Hemoglobin 13.3 g/dl (14.0-18.0); Imm Gran Abs Auto 0.05 X10*3/uL (0.00-0.03); Imm Gran Pct Auto 0.4 % (0.0-0.4); Lymphocytes Percent Auto 7.9 % (20-40); Mean Corpuscular HGB Conc 33.2 g/dl (31.0-36.0); Mean Corpuscular Hemoglobin 30.2 pg (27.0-33.0); Mean Corpuscular Volume 90.9 fL (80.0-98.0); Mean Platelet Volume 11.6 fL (9.4-12.4); Monocytes Absolute Auto 1.1 X10*3/uL (0.1-1.2); Monocytes Percent Auto 8.7 % (2-11); Neutrophils Absolute Auto 10.2 x10*3/uL (2.0-8.3); Neutrophils Percent Auto 82.1 % (45-73); Platelet Count 217 X10*3/uL (160-400); Red Blood Count 4.41 X10*6/uL (4.60-5.80); Red Cell Distribution Width 14.1 % (11.0-16.0); White Blood Count 12.4 X10*3/uL (4.8-10.8)
[2024-03-17 17:03] LABS: Alanine Aminotransferase 8 U/L (0-40); Albumin Level 3.9 g/dL (3.5-5.0); Anion Gap 14 (12-20); Aspartate Amino Transferase 20 U/L (5-37); Bilirubin Total 1.3 mg/dL (0.0-1.0); Blood Urea Nitrogen 25 mg/dL (9-16); C Reactive Protein 15.13 mg/dL (< or = 0.50); Calcium 9.6 mg/dL (8.4-10.2); Carbon Dioxide 22 mmol/L (22-29); Chloride 107 mmol/L (96-108); Creatinine Clr Calc Pharmacy 90.4; Estimated Glomerular Filt Rate > 60; Glucose Random 103 mg/dL (60-115); Potassium 3.8 mmol/L (3.3-5.1); Sodium 139 mmol/L (135-145); Total Protein 8.1 g/dL (6.5-8.0); Uric Acid 6.7 mg/dL (3.4-7.0)
[2024-03-17 17:10] LABS: Alkaline Phosphatase 76 U/L (39-117)
[2024-03-17 17:39] LABS: Erythrocyte Sedimentation Rate 53 MM/HR (0-15)
--- OUTSIDE RECORDS SUMMARY | 2024-03-17 20:05 | XMS_ITS | Encounter Summary ---
Author Organization [employer] Address [address] [place] [address] Care Team Providers Care Bindery Chief Name Role Phone Maurice Keyes MD Primary Care Prov ider Reason for Visit * Reason Onset Date Comments Referral 01/01/2024 Encounter Details Date Type Department Care Team ([facility] st Contact Info) Description 01/01/2024 Telephone [facility] [address] [place] [address] Maurice Keyes MD [address] [place] [address] Referral Social History Tobacco Use Types Packs/Day Years Used Date Smoking Tobacco: Never Assessed Depression Answer Date Recorded Patient Health Questionnaire-9 Score 0 01/05/2024 Patient Health Questionnaire-9 Score 0 01/05/2024 Last PHQ-9: Questionnaire Data Not on file 1 03/06/2023 Housing Stability Answer Date Recorded What is your housing situation today? I have brittny melchor 01/05/[address] you li ve. Do you have problems with any of the following? None of the above 01/05/2024 Food Insecurity Answer Date Recorded Within the past 12 months, y ou worried that your food would run out before you got money to buy more: Never True 01/05/2024 Within the past 12 months,th e food you bought just didn't last and you didn't have enough money to get more: Never True 12/2023 Transportation Answer Date Recorded In the past 12 months, has l ack of transportation kept you from medical appts, meetings, work or from getting things needed for daily living? No 01/05/2024 Utilities Answer Date Recorded In the past 12 months, has t he electric, gas, oil or water company threatened to shut off services in your home? No 01/05/2024 Depression Answer Date Recorded Patient Health Questionnaire-2 Score 0 01/05/2024 Internet Access Answer Date Recorded Internet Access Q1 Yes 01/05/2024 Internet Access Q2 Not on file 01/05/2024 Sex and Gender Information Value Date Recorded Sex Assigned at Male 12/24/2021 10:16 AM EDT Legal Sex Male 10:16 AM EDT Gender Identity Choose not to disclose 10:16 AM EDT Sexual Orientation Choose not to disclose 2021 10:16 AM EDT documented as of this encounter Miscellaneous Notes * Telephone Encounter - Tiago Rivera - 01/01/2024 3:09 PM EST Tc from pt requesting a referral to be seen with [facility]. Please contact pt at [phone]. (Uzbek Speaker) documented in this encounter Plan of Treatment Upcoming Encounters Date Type Department Care Team (Late st Contact Info) Description 03/25/2024 11:30 AM EST Telemedicine [facility] [address] [place] [address] Maurice Keyes MD [address] [place] [address] documented as of this encounter Visit Diagnoses Not on filedocumented in this encounter Care Teams Bindery Chief Relationship Specialty Start Date End Date Maurice Keyes MD [address] [place] [address] PCP - General Internal Medicine 07/25/19 documented as of this encounter
--- OUTSIDE RECORDS SUMMARY | 2024-03-17 20:05 | XMS_ITS | Encounter Summary ---
Author Organization [employer] Address [address] [place] [address] Care Team Providers Care Wick And Base Assembler Name Role Phone Maurice Keyes MD Primary Care Prov ider Encounter Details Date Type Department Care Team (Late st Contact Info) Description 03/17/2024 Orders Only GENERIC EXTERNAL DATA DEPARTMENT Provider, Generic External Data Social History Tobacco Use Types Packs/Day Years [...] AM EDT documented as of this encounter Plan of Treatment Upcoming Encounters Date Type Department Care Team ([facility] st Contact Info) Description 03/25/2024 11:30 AM EST Telemedicine [facility] [address] [place] [phone] SniderMaurice Valdez MD [address] [place], [place] [phone] documented as of this encounter Procedures Procedure Name Priority Date/Time Associated Diagnosis Comments XR HAND WRIST RT Routine 03/17/2024 6:12 PM EST CBC WITH AUTO DIFFERENTIAL Routine 03/17/2024 4:37 PM EST SED RATE BY MODIFIED WESTERGREN Routine 03/17/2024 4:37 PM EST C-REACTIVE PROTEIN Routine 03/17/2024 4: 37 PM EST URIC ACID Routine 03/17/2024 4:37 PM EST COMPREHENSIVE METABOLIC PANEL Routine 03/17/2024 4:37 PM EST documented in this encounter Results * XR HAND WRIST RT (03/17/2024 6:12 PM EST) Anatomical Region Laterality Modality Abdomen Radiographic Ashley ging 03/17/2024 6:12 PM EST Narrative 03/17/2024 6:14 PM EST ? [facility] ?[address] ?[place] [address] ?XRay Report ? Signed ? Patient: Bharathi,Phillip M ?MR#: [id number] ?? [id number] ? : 1965 ?Acct:[id number] ? Age/Sex: 58 / M ?ADM Date: 01/22/25 ? Loc: HO.ED ? Attending Dr: ? Ordering Physician: Mireya Giordano NP ?? Date of Service: 03/17/24 ?? Procedure(s): XR hand wrist RT ?? Accession Number(s): [id number] ? cc: Maurice Keyes MD; Mireya Giordano NP ? CLINICAL HISTORY: pain and swelling ? 4 view right hand ? Comparison: None ? Findings: ?? Bones intact. No dislocations. ?? No significant arthritic change. ?? No erosions. There is a 2 mm radiopaque foreign body in the 2nd digit at ?? the level of the base of the middle phalanx laterally. ?? Soft tissue swelling of the dorsum of the hand. ? IMPRESSION: ?? 1. No acute osseous findings. ? 2. Punctate radiopaque foreign body in the 2nd digit. ?? 3. Soft tissue swelling at the dorsum of the hand. ? This document has been electronically signed by: Georgia Guillermo MD on ?? 03/17/2024 18:12:52 ? Dictated By: ?Georgia Guillermo MD ? Signed By: ?<Electronically signed by Georgia Guillermo MD in OV> ? 03/17/24 1814 ? DD/ 11 ? TD/TT: 03/17/241811 ? Chief Fundraising Officer: ? Procedure Note Rai, Image - 03/17/2024 [place] [id number] XRay Report Signed Patient: Phillip Garvin [facility]#: [id number] : 1965Acct:[id number] Age/Sex: 58 / MADM Date: 03/17/24 Loc: HO.ED Attending Dr: Ordering Physician: Mireya Giordano NP Date of Service: 03/17/24 Procedure(s): XR hand wrist RT Accession Number(s): [id number] cc: Maurice Keyes MD; Mireya Giordano NP CLINICAL HISTORY: pain and swelling 4 view right hand Comparison: None Findings: Bones intact. No dislocations. No significant arthritic change. No erosions. There is a 2 mm radiopaque foreign body in the 2nd digit at the level of the base of the middle phalanx laterally. Soft tissue swelling of the dorsum of the hand. IMPRESSION: 1. No acute osseous findings. 2. Punctate radiopaque foreign body in the 2nd digit. 3. Soft tissue swelling at the dorsum of the hand. This document has been electronically signed by: Georgia Guillermo MD on 03/17/2024 18:12:52 Dictated By: Georgia Guillermo MD Signed By: <Electronically signed by Georgia Guillermo MD in OV> 03/17/241813 DD/ 11 TD/TT: 03/17/241811 Chief Fundraising Officer: [facility] External Provider IMG XR PROCEDURES Final Result * (ABNORMAL) Sed Rate by Modified [place] (03/17/2024 4:37 PM EST) Erythrocyte Sedimentation Rate 53(H) 0 - 15 MM/HR [facility] Comment:Patients with polycy themia and many hemoglobin abnormalitiesmay have depressed sed rates whereas patients with anemiamay have elevated sed rates. 03/17/2024 4:37 PM EST 03/17/2024 4:41 PM EST Generic External Data Provider LAB BLOOD ORDERAB LES Final Result Performing Organization Address [facility] Co de Phone Number [facility] [address] [place] [phone] * (ABNORMAL) C-reactive Protein (03/17/2024 4:37 PM EST) C Reactive Protein 15.13(H) < or = 0.50 mg/dL [facility] 03/17/2024 4:37 PM EST 03/17/2024 4:41 PM EST Generic External Data Provider LAB BLOOD ORDERAB LES Final Result Performing Organization Address [facility] Co de Phone Number [facility] [address] [place] [phone] * Uric acid (03/17/2024 4:37 PM EST) Uric Acid 6.7 3.4 - 7.0 mg/dL [facility] 03/17/2024 4:37 PM EST 03/17/2024 4:41 PM EST us Generic External Data Provider LAB BLOOD ORDERAB LES Final Result [facility] [address] [place] [phone] * (ABNORMAL) Comprehensive Metabolic Panel (03/17/2024 4:37 PM EST) Sodium 139 135 - 145 mmol/L [facility] Potassium 3.8 3.3 - 5.1 mmol/L [facility] Chloride 107 96 - 108 mmol/L [facility] Carbon Dioxide 22 22 - 29 mmol/L [facility] Anion Gap 14 12 - 20 [facility] Urea Nitrogen (BUN) 25(H) 9 - 16 mg/dL [facility] Creatinine, Serum 1.19 0.5 - 1.4 mg/dL [facility] Creatinine Clr Calc Pharmacy 90.4 [facility] Comment:eGFR (calculated fro m the MDRD study equation) and eCrCl(calculated from the Cockcroft-Gault equation) are based ondifferent parameters and may not yield comparable results.If eCrCl result is absurd, please check patient'sheight/weight. Estimated Glomerular Filt Rate >60 [facility] Comment:Chronic Kidney Disea se: Estimated GFR < 60 mL/min/[id number] Kidney Disease: Estimated GFR < 15 mL/min/1.73m2 Glucose 103 60 - 115 mg/dL [facility] Calcium 9.6 8.4 - 10.2 mg/dL [facility] Bilirubin, Total 1.3(H) 0.0 - 1.0 mg/dL [facility] Aspartate Amino Transferase 20 5 - 37 U/L [facility] Alanine Aminotransferase 8 0 - 40 U/L [facility] Total Protein 8.1(H) 6.5 - 8.0 g/dL [facility] Albumin Level 3.9 3.5 - 5.0 g/dL [facility] Alkaline Phosphatase 76 39 - 117 U/L [facility] 03/17/2024 4:37 PM EST 03/17/2024 4:41 PM EST us Generic External Data Provider LAB BLOOD ORDERAB LES Final Result [facility] [address] [place] [phone] * (ABNORMAL) CBC auto differential (03/17/2024 4:37 PM EST) White Blood Count 12.4(H) 4.8 - 10.8 X10*3/uL [facility] Red Blood Count 4.41(L) 4.60 - 5.80 X10*6/uL [facility] Hemoglobin 13.3(L) 14.0 - 18.0 g/dl [facility] Hematocrit 40.1(L) 42.0 - 52.0 % [facility] Mean Corpuscular Volume 90.9 80.0 - 98.0 fL [facility] Mean Corpuscular Hemoglobin 30.2 27.0 - 33.0 pg [facility] Mean Corpuscular HGB Conc 33.2 31.0 - 36.0 g/dl [facility] Red Cell Distribution Width 14.1 11.0 - 16.0 % [facility] Platelet Count 217 160 - 400 X10*3/uL [facility] Mean Platelet Volume 11.6 9.4 - 12.4 fL [facility] Neutrophils Percent Auto 82.1(H) 45 - 73 % [facility] Imm Gran Pct Auto 0.4 0.0 - 0.4 % [facility] Lymphocytes Percent Auto 7.9(L) 20 - 40 % [facility] Monocytes Percent Auto 8.7 2 - 11 % [facility] Eosinophils Percent Auto 0.7 0 - 4 % [facility] Basophils Percent Auto 0.2 0 - 2 % [facility] NRBC Pct Auto 0.0 0.0 - 0.2 /100WBC [facility] Neutrophils Absolute Auto 10.2(H) 2.0 - 8.3 x10*3/uL [facility] Imm Gran Abs Auto 0.05(H) 0.00 - 0.03 X10*3/uL [facility] Lymphocytes Absolute Auto 1.0(L) 1.2 - 4.9 X10*3/uL [facility] Monocytes Absolute Auto 1.1 0.1 - 1.2 X10*3/uL [facility] Eosinophils Absolute Auto 0.1 0.0 - 0.4 X10*3/uL [facility] Basophils Absolute Auto 0.0 0.0 - 0.2 X10*3/uL [facility] NRBC Abs Auto 0.000 0.0 - 0.012 X10*3/uL [facility] 03/17/2024 4:37 PM EST 03/17/2024 4:41 PM EST us Generic External Data Provider LAB BLOOD ORDERAB LES Final Result Performing Organization Address City/State/[facility] Co de Phone Number [facility] [address] [place] [phone] documented in this encounter Visit Diagnoses Not on filedocumented in this encounter Additional Health Concerns Assessment Noted Time PHQ-9 Depression Total Score: 0 01/05/20 24 11:20 AM EST documented as of this encounter Care Teams Wick And Base Assembler Relationship Specialty Start Date End Date Maurice Keyes MD [address] [place] [phone] PCP - General Internal Medicine 07/25/19 documented as of this encounter
--- OUTSIDE RECORDS SUMMARY | 2024-03-17 20:05 | XMS_ITS | Clinical Summary ---
Author Organization [facility] Facility Address [address] [place] [phone] Care Team Providers Care Dry Charge Process Attendant Name Role Phone Maurice Snider Primary Care Provider Allergies No known active allergies Medications allopurinol (ZYLOPRIM) 300 MG tablet Take 300 mg by mouth 1 (one) time each day 2 Active Eliquis 5 MG tablet Take 5 mg by mouth 2 Active clotrimazole (LOTRIMIN) 1 % cream Apply 1 application topically 2 (two) times a day 2 Active Entresto 24-26 MG per tablet Take 1 tablet by mouth every 12 (twelve) hours 2 Active gabapentin (NEURONTIN) 300 MG capsule Take 300 mg by mouth in the morning and 300 mg in the evening and 300 mg before bedtime. Active furosemide (LASIX) 40 MG tablet Take 40 mg by mouth in the morning and 40 mg in the evening. Active lisinopril 2.5 MG tablet Take 2.5 mg by mouth 1 (one) time each day Active amitriptyline (ELAVIL) 25 MG tablet Take 25 mg by mouth every night Active colchicine 0.6 MG tablet Take 0.3 mg by mouth 1 (one) time each day 2 Active spironolactone (ALDACTONE) 25 MG tablet Take 12.5 mg by mouth 1 (one) time each day 2 Active Farxiga 10 MG tablet Take by mouth 1 (one) time each day 3 Active Active Problems Problem Noted Date Diagnosed Date Essential (primary) hypertension 08/13/2021 Congestive heart failure 08/13/2021 Chronic kidney disease 08/13/2021 Resolved Problems Problem Noted Date Diagnosed Date Resolved Date Chronic pulmonary congestion 08/13/2021 08/13/2021 Social History Tobacco Use Types Packs/Day Years Used Date Smoking Tobacco: Never Smokeless Tobacco: Never Tobacco Cessation:Counseling Given: Not Answered Sex and Gender Information Value Date Recorded Sex Assigned at Not on file Legal Sex Male 10:28 AM EDT Gender Identity Not on file Sexual Orientation Not on file Last Filed Vital Signs Vital Sign Reading Time Taken Comments Blood Pressure 110/80 06/13/2022 3:23 PM EDT Pulse 84 06/13/2022 3:23 PM EDT Temperature - - Respiratory Rate - - Oxygen Saturation 97% 06/13/2022 3:23 PM EDT Inhaled Oxygen Concentration - - Weight 141 kg (310 lb) 06/13/2022 3:23 PM EDT Height - - Body Mass Index - - Plan of Treatment Health Maintenance Due Date Last Done Comments Pneumococcal Vaccine: Pediat rics (0 to 5 Years) and At-Risk Patients (6 to 64 Years) (1 of 2 - PCV) 1972 Hepatitis B Vaccine (1 of 3 - 19+ 3-dose series) 11/24 Colorectal Cancer Screening: Annual FOBT 11/25/2015 Colorectal Cancer Screening: Colonoscopy 11/25/2015 Colorectal Cancer Screening: Sigmoidoscopy 11/25/2015 Influenza Vaccine (#1) 2023 Insurance [place] Care Teams Dry Charge Process Attendant Relationship Specialty Start Date End Date Maurice Snider PCP - General Internal Medicine 08/06/21
[2024-03-17 20:08] VITALS: BP 113/82; PULSE 90; RESP 16; TEMP 36.7; O2SAT 97
[2024-03-17] MEDS: predniSONE 20 MG TABLET 60 MG PO (20:11)
--- NOTE | 2024-03-17 20:13 | PC.NURSE ---
pt medicated per order float nurse
[2024-03-17 20:18] VITALS: BP 113/82; PULSE 90; RESP 16; TEMP 36.7; O2SAT 97
== END 2024-03-17 20:18 | disposition home or self-care (01) ==
PROVIDERS: Registered Nurse Emergency; Emergency Provider Emergency Medicine Emergency Medical Services; PCP Internal Medicine
DX: M10.042 Idiopathic gout, left hand (principal); M25.531 Pain in right wrist; M79.641 Pain in right hand; Z79.899 Other long term (current) drug therapy
CPT/HCPCS: 36415; 73110; 73130; 80053; 84550; 85025; 85652; 86140; 99283

== ENCOUNTER → 2024-03-17 17:38 | Outpatient (BNV) | payer MEDICAID, SELFPAY | PROVIDERS: PCP Internal Medicine; Visit Provider Specialist | DX: S60.450A Superficial foreign body of right index finger, initial encounter (principal); R22.31 Localized swelling, mass and lump, right upper limb | CPT/HCPCS: 73130 ==

== ENCOUNTER 2024-04-21 11:43 | Emergency (ER) | payer MEDICAID, SELFPAY ==
[2024-04-21 12:26] VITALS: BP 103/69; PULSE 107; RESP 16; TEMP 36.9; O2SAT 97; BMI 46.7
--- NOTE | 2024-04-21 12:31 | ED.GENADULT ---
HPI - General Adult General Chief complaint: Extremity Problem Stated complaint: gout flare up Time Seen by Provider: 04/21/24 12:30 Source: patient, RN notes reviewed and old records reviewed Mode of arrival: ambulatory Limitations: no limitations History of Present Illness ED Provider: Jennifer FOY narrative: 58-year-old male past medical history significant for gout, chronic kidney disease, cardiomyopathy, pulmonary hypertension, sleep apnea presents for evaluation of mostly right hand and wrist pain. He also complains of pain to his left foot. He reports his symptoms are consistent with his previous gout flares he denies any trauma to the foot or hand/wrist. Denies any fevers or chills. His pain is 10/10. He reports last time he had this they gave me an injection in my arm and the pain went away. Related Data Home Medications ?Medication ?Instructions ?Recorded ?Confirmed allopurinol 300 mg tablet 150 mg PO DAILY 12/15/19 01/19/24 apixaban 5 mg tablet (Eliquis) 5 mg PO BID 12/15/19 01/19/24 carvedilol 3.125 mg tablet 3.125 mg PO BID 12/15/19 01/19/24 sacubitril 24 mg-valsartan 26 mg 1 tab PO BID 12/15/19 01/19/24 tablet (Entresto) dapagliflozin propanediol 10 mg 10 mg PO DAILY 05/19/23 01/19/24 tablet torsemide 20 mg tablet 20 mg PO BID 05/19/23 01/19/24 Previous Rx's ?Medication ?Instructions ?Recorded colchicine 0.6 mg capsule 0.6 mg PO BID 2 days #4 caps 11/25/23 oxycodone 5 mg capsule 5 mg PO TID PRN pain 3 days #9 caps 11/25/23 morphine 15 mg immediate release 15 mg PO Q8H PRN pain #10 tabs 03/17/24 tablet prednisone 20 mg tablet 60 mg (3 x 20 mg) PO DAILY 5 days 03/17/24 #15 tabs colchicine 0.6 mg tablet 0.6 mg PO BID #14 tabs 04/21/24 prednisone 20 mg tablet 40 mg (2 x 20 mg) PO DAILY #10 tabs 04/21/24 Allergies Allergy/AdvReac Type Severity Reaction Status Date / Time No Known Allergies Allergy Verified 02/26/25 12:27 [No Known Allergies*] Review of Systems Constitutional: Constitutional: Denies body ache(s), Denies chills and Denies fever(s) Musculoskeletal: Musculoskeletal: Reports arthralgias, Reports joint swelling and Reports limited range of motion Integumentary/Breasts: Skin/Breast: Reports erythema and Denies wounds PMFSH Past Medical History Medical History Gout Cardiomyopathy Dyspnea Pulmonary hypertension SINGH (obstructive sleep apnea) Social History Social History Patient Tobacco Use Status: Tobacco use Unknown Physical Exam ED Vital Signs: Vital Signs - 24 hr 04/21/24 12:26 Temperature 98.4 F Pulse Rate 107 H Respiratory Rate 16 Blood Pressure 103/69 Pulse Oximetry 97 Oxygen Delivery Method Room Air BMI result Body Mass Index 46.7 Const General: healthy appearing, comfortable, no acute distress, alert and awake Nutritional Appearance: well nourished Orientation/consciousness: patient oriented x3 HENMT Head: Yes normocephalic and Yes atraumatic Resp Effort & Inspection: normal respiratory effort, able to speak in complete sentences and not labored Skin General skin exam: elasticity normal Neuro General: patient oriented x3 Cranial nerves: Yes Bilaterally intact EOM present Cognition (Neuro): normal cognition Extrem Other: Patient has mild edema to the right wrist mostly over the distal radius. This area is tender to palpation. No overlying wounds. The patient has good range of motion Medical Decision Making Medical Decision Making MDM Narrative: 58-year-old male with history as documented above presents for evaluation of atraumatic right hand and wrist pain as well as left foot pain. He denies any trauma, no fevers or chills. He has a longstanding history of gout. He reports this feels similar. I do not see any indication for emergent workup at this time. We will treat the patient symptomatically for got with prednisone and colchicine. He will be given injection of Toradol prior to discharge Differential Diagnosis Differential Diagnoses: The differential diagnosis associated with the presentation includes acute gouty arthritis Arthritis Osteoarthritis Septic joint less likely Contusion Wrist sprain Discharge Plan Discharge Clinical Impression: Gout Patient Disposition: Home, Self-Care Instructions: Low Purine Diet (ED), Gout (ED) Additional Instructions: your symptoms are most consistent with gout. Take prednisone and colchicine as prescribed. You may use ibuprofen/ Tylenol as needed for pain. Follow-up with your primary doctor, return for new or worsening symptoms Prescriptions: New prednisone 20 mg tablet 40 mg PO DAILY Qty: 10 0RF colchicine 0.6 mg tablet 0.6 mg PO BID Qty: 14 0RF No Action colchicine 0.6 mg capsule 0.6 mg PO BID 2 Days Qty: 4 0RF oxycodone 5 mg capsule 5 mg PO TID PRN (Reason: pain) 3 Days Qty: 9 0RF Rx Instructions: Partial Fill upon patient request. prednisone 20 mg tablet 60 mg PO DAILY 5 Days Qty: 15 0RF morphine 15 mg tablet 15 mg PO Q8H PRN (Reason: pain) Qty: 10 0RF Rx Instructions: Partial Fill upon patient request. carvedilol 3.125 mg tablet 3.125 mg PO BID Rx Instructions: must administer with a meal/food allopurinol 300 mg tablet 150 mg PO DAILY Eliquis 5 mg tablet 5 mg PO BID Entresto 24-26 mg tablet 1 tab PO BID dapagliflozin propanediol 10 mg tablet 10 mg PO DAILY torsemide 20 mg tablet 20 mg PO BID Print Language: Frisian
[2024-04-21] MEDS: Ketorolac Tromethamine 30 MG/ML VIAL IM (12:37)
[2024-04-21 12:41] VITALS: BP 103/69; PULSE 107; RESP 16; TEMP 36.9; O2SAT 97
--- OUTSIDE RECORDS SUMMARY | 2024-04-21 15:36 | XMS_ITS | Encounter Summary ---
Author Organization [employer] Address [address] [place] [address] Care Team Providers Care Ink Blender Name Role Phone Maurice Keyes MD Primary Care Prov ider Reason for Referral * Consultation (Routine) - Authorized Specialty Diagnoses / Procedures Referred By Contac t Referred To Contact Rheumatology Diagnoses Left wrist pain Maurice Keyes MD [address] [place] [address] Phone: tel: fax: [facility] [address] [place] [address] Phone: tel: fax: Referral ID Status Reason Start Date Expiration Date Visits Requested Visits Authorized [id number] Authorized Specialty Services Required 03/25/2024 03/25/2025 1 1 Encounter Details Date Type Department Care Team (Late st Contact Info) Description 03/25/2024 11:30 AM EST Telemedicine [facility] CHC MED & PEDS [address] [place] [address] Maurice Keyes MD [address] [place], [place] [phone] Left wrist pain (Primary Dx); Heart failure with reduced ejection fraction (CMS/HCC); Dietary counseling; Exercise counseling; Screening for colon cancer Social History Tobacco Use Types Packs/Day Years [...] from getting things needed for daily living? Yes, it has kept me from medical appointments or getting medications. 03/18/2024 Utilities Answer Date Recorded In the past [...] AM EDT documented as of this encounter Progress Notes * Maurice Odom MD - 03/25/2024 11:30 AM EST Subjective Patient ID: Phillip Garvin is a 58 y.o. adult who presents for No chief complaint on file.. Wrist Pain The pain is present in the left wrist and right wrist. This is a chronic problem. Associated symptoms include joint swelling, a limited range of motion and stiffness. Pertinent negatives include no fever, inability to bear weight or itching. Phillip's past medical history is significant for gout. Review of Systems Constitutional: Negative for fever. Musculoskeletal: Positive for gout and stiffness. Skin: Negative for itching. Objective Physical Exam Neurological: General: No focal deficit present. Mental Status: Phillip is oriented to person, place, and time. Psychiatric: Mood and Affect: Mood normal. Behavior: Behavior normal. Assessment/Plan Problem List Items Addressed This Visit Heart failure with reduced ejection fraction (CMS/HCC) Followed by cardiology, denied shortness of breath or chest pain, will follow up cardiology reccomendations Relevant Medications Entresto 24-26 MG tablet Other Relevant Orders CBC auto differential Comprehensive Metabolic Panel Lipid Panel, Standard TSH W/Reflex to FT4 HIV-1/2 Antigen and Antibodies, Fourth Generation, with Reflexes Hepatitis C Antibody with Reflex to HCV, RNA, Quantitative, Real-Time PCR Left wrist pain - Primary On allopurinol, uric acid decreased from 12.6 to 6.7, patient with persistant episode of gout on both hands will refer to rheumatology Relevant Orders Referral to Rheumatology Other Visit Diagnoses Dietary counseling Exercise counseling Screening for colon cancer Relevant Orders Cologuard?? colon cancer screening documented in this encounter Miscellaneous Notes * Assessment & Plan Note - Maurice Odom MD - 03/25/2024 11:46 AM ESTAssociated Problem(s): Left wrist pain On allopurinol, uric acid decreased from 12.6 to 6.7, patient with persistant episode of gout on both hands will refer to rheumatology * Assessment & Plan Note - Maurice Odom MD - 03/25/2024 11:45 AM ESTAssociated Problem(s): Heart failure with reduced ejection fraction (CMS/HCC) Followed by cardiology, denied shortness of breath or chest pain, will follow up cardiology reccomendations documented in this encounter Plan of Treatment Scheduled Orders Name Type Priority Associated Diagnoses Orde r Schedule CBC auto differential Lab Routine Heart failure with reduced ejection fraction (CMS/HCC) Expected: 03/25/2024 (Approximate), Expires: 03/25/2025 Comprehensive Metabolic Panel Lab Routine Heart failure with reduced ejection fraction (CMS/HCC) Expected: 03/25/2024 (Approximate), Expires: 03/25/2025 Lipid Panel, Standard Lab Routine Heart failure with reduced ejection fraction (CMS/HCC) Expected: 03/25/2024 (Approximate), Expires: 03/25/2025 TSH W/Reflex to FT4 Lab Routine Heart failure with reduced ejection fraction (CMS/HCC) Expected: 03/25/2024 (Approximate), Expires: 03/25/2025 HIV-1/2 Antigen and Antibodies, Fourth Generation, with Reflexes Lab Routine Heart failure with reduced ejection fraction (CMS/HCC) Expected: 03/25/2024 (Approximate), Expires: 03/25/2025 Hepatitis C Antibody with Reflex to HCV, RNA, Quantitative, Real-Time PCR Lab Routine Heart failure with reduced ejection fraction (CMS/HCC) Expected: 03/25/2024, Expires: 03/25/2025 Scheduled Referrals Name Type Priority Associated Diagnoses Order Schedule Referral to Rheumatology Outpatient Referral Routine Left wrist pain Expected: 03/25/2024 (Approximate), Expires: 03/25/2025 documented as of this encounter Procedures Procedure Name Priority Date/Time Associated Diagnosis Comments LAB COLOGUARD?? COLON CANCER SCREEN Routine 03/30/2024 9:00 PM EST Screening for colon cancer documented in this encounter Results * Cologuard?? colon cancer screening (03/30/2024 9:00 PM EST) Cologuard Result Negative Negative 04/08/19 11:29 PM EST [employer] (CLIA #:[id number]) Comment: NEGATIVE TEST RESULT. A negative Cologuard result indicates a low likelihood that a colorectal cancer (CRC) or advanced adenoma (adenomatous polyps with more advanced pre-malignant features) ??is present. The chance that a person with a negative Cologuard test has a colorectal cancer is less than 1 in 1500 (negative predictive value >99.9%) or has an ??advanced adenoma is less than ??5.3% (negative predictive value 94.7%). These data are based on a prospective cross-sectional study of 10,000 individuals at average risk for colorectal cancer who were screened with both Cologuard and colonoscopy. (Yoav Bhat al, N Engl J Med 2014;370(14):1286- 1297) The normal value (reference range) for this assay is negative. COLOGUARD RE-SCREENING RECOMMENDATION: Periodic colorectal cancer screening is an important part of preventive healthcare for asymptomatic individuals at average risk for colorectal cancer. ??Following a negative Cologuard result, the [employer] Society and U.S. Multi-Society Task Force screening guidelines recommend a Cologuard re-screening interval of 3 years. References: [employer] Guideline for Colorectal Cancer Screening: https://www.cancer.org/cancer/ltuik-viggsg-fptxhl/ctbjndipp-uolmatydg-miqjuwo/ac s-rec ommendations.html.; Mike DK, Joy MARIE, Casandra WongK, Colorectal Cancer Screening: Recommendations for Physicians and Patients from the U.S. Multi-Society Task Force on Colorectal Cancer Screening , Am J Gastroenterology 2017; 112:2390-5731. TEST DESCRIPTION: Composite algorithmic analysis of stool DNA-biomarkers with hemoglobin immunoassay. ?? Quantitative values of individual biomarkers are not reportable and are not associated with individual biomarker result reference ranges. Cologuard is intended for colorectal cancer screening of adults of either sex, 45 years or older, who are at average-risk for colorectal cancer (CRC). Cologuard has been approved for use by the U.S. FDA. The performance of Cologuard was established in a cross sectional study of average-risk adults aged 50-84. Cologuard performance in patients ages 45 to 49 years was estimated by sub-group analysis of near-age groups. Colonoscopies performed for a positive result may find as the most clinically significant lesion: colorectal cancer [4.0%], advanced adenoma (including sessile serrated polyps greater than or equal to 1cm diameter) [20%] or non- advanced adenoma [31%]; or no colorectal neoplasia [45%]. These estimates are derived from a prospective cross-sectional screening study of 10,000 individuals at average risk for colorectal cancer who were screened with both Cologuard and colonoscopy. (Yoav Bhat al, N Engl J Med 2014;370(14):3521-9879.) Cologuard may produce a false negative or false positive result (no colorectal cancer or precancerous polyp present at colonoscopy follow up). A negative Cologuard test result does not guarantee the absence of CRC or advanced adenoma (pre-cancer). The current Cologuard screening interval is every 3 years. ([employer] Society and U.S. Multi-Society Task Force). Cologuard performance data in a 10,000 patient pivotal study using colonoscopy as the reference method can be accessed at the following location: www.[employer]results. Additional description of the Cologuard test process, warnings and precautions can be found at www.[employer]. Stool specimen (specimen) 03/30/2024 9:00 PM EST 04/01/2024 2:04 PM EST Maurice Odom MD LAB MOLECULAR DIAG NOSTICS ORDERABLES Final Result [employer] (CLIA #:[id number]) [address] [place] [address], documented in this encounter Visit Diagnoses Diagnosis Left wrist pain- Primary Pain in joint, forearm Heart failure with reduced ejection fraction (CMS/HCC) Dietary counseling Dietary surveillance and counseling Exercise counseling Screening for colon cancer Special screening for malignant neoplasms, colon documented in this encounter Additional Health Concerns Assessment Noted Time PHQ-9 Depression Total Score: 0 01/05/20 24 11:20 AM EST documented as of this encounter Care Teams Ink Blender Relationship Specialty Start Date End Date Maurice Keyes MD [address] [place] [address] PCP - General Internal Medicine 07/25/19 documented as of this encounter
--- OUTSIDE RECORDS SUMMARY | 2024-04-21 15:36 | XMS_ITS | Encounter Summary ---
Author Organization [email or web address] Address [address] [facility] [address] [place] [address] Care Team Providers Care Semiconductor Wafer Inspector Name Role Phone Maurice Keyes MD Primary Care Prov ider Reason for Visit * Reason Onset Date Comments Care Coordination 03/22/2024 C3CM initial a ssessment/ enrollment Encounter Details Date Type Department Care Team ([facility] st Contact Info) Description 03/22/2024 Telephone [facility] CHC MED & PEDS [address] [place], [place] [phone] Karen Yanez RN [address] [place] [address] Care Coordination (C3 initial assessment/ enrollment) Social History Tobacco Use Types Packs/Day Years [...] encounter Miscellaneous Notes * Telephone Encounter - Karen Yanez RN - 03/22/2024 10:57 AM EST MARY Yanez RN placed outbound call to patient for agreed upon time for initial assessment for enrollment into Adult Care Management Program. Patient's name, , and address were verified. MARY spoke with pt who reports he doesn't have enough food to last him for the month. CM/ CHW will [facility] to assist [facility] with his needs. Pt denies any other SDOH needs when reviewed with pt. Pt states he has gout in his joints including the knee and back and takes allopurinol with good effect. Ptstates he checks his BP occasionally and that readings have always been within normal range. Per pt, he would like to lose some weight. CM educated pt on weight management including exercise and cutting down on carbohydrates replacing it with vegetables and meat. Pt advised to discuss further with PCP for referral to direct sales consultant. CM reminded pt of his upcoming appt with PCP. Pt states he feels safe in his home and denies smoking, drinking or taking any illegal drugs. Per pt, his is his health care proxy and is aware of all his medical wishes. Pt states he is compliant with all his medications and denies any side effect at this time. Pt denies any personal goals at this time. CM plan includes connecting pt to resources, health education and appointment reminder Care management program explained and contact information given. Patient verbalizes understanding, and able to repeat back to adjusto writer operator. A follow up call will be placed within 10 days, patient agrees with plan. MARY Yanez RN, provided notification to PCP Dr. Mejia of patient's enrollment into C3 Complex Care Program. MARY Yanez RN, completed care plan and sent to HIM to be scanned into the medical record. PCP notified and awaiting review from provider. documented in this encounter Plan of Treatment Not on file documented as of this encounter Visit Diagnoses Not on filedocumented in this encounter Additional Health Concerns Assessment Noted Time PHQ-9 Depression Total Score: 0 01/05/20 24 11:20 AM EST documented as of this encounter Care Teams Semiconductor Wafer Inspector Relationship Specialty Start Date End Date Maurice Keyes MD [address] [place] [id number] PCP - General Internal Medicine 07/25/19 documented as of this encounter
--- OUTSIDE RECORDS SUMMARY | 2024-04-21 15:36 | XMS_ITS | Encounter Summary ---
Author Organization [employer] Address [address] [facility] [facility] [place] [address] Care Team Providers Care Osd Clerk Name Role Phone Maurice Keyes MD Primary Care Prov ider Reason for Visit * Reason Onset Date Comments Referral 01/01/2024 Encounter Details Date Type Department Care Team ([facility] st Contact Info) Description 01/01/2024 Telephone [facility] MEDICINE [address] [place] [address] Maurice Keyes MD [address] [place] [address] Referral Social History Tobacco Use Types Packs/Day [...] requesting a referral to be seen with [facility]. Please contact pt at [phone]. (English Speaker) documented in this encounter Plan of Treatment Not on file documented as of this encounter Visit Diagnoses Not on filedocumented in this encounter Care Teams Osd Clerk Relationship Specialty Start Date End Date Maurice Keyes MD [address] [place] [id number] PCP - General Internal Medicine 07/25/19 documented as of this encounter
--- OUTSIDE RECORDS SUMMARY | 2024-04-21 15:36 | XMS_ITS | Encounter Summary ---
Author Organization [employer] Address [address] [facility] [address] [place] [address] Care Team Providers Care Home Insurance Agent Name Role Phone Maurice Keyes MD Primary Care Prov ider Reason for Visit * Reason Comments Care Coordinaton Outreach Encounter Details Date Type Department Care Team ([facility] st Contact Info) Description 04/16/2024 Patient Outreach [facility] CHC MED & PEDS [address] [place], [place] [phone] Maurice Keyes MD [address] [place] [address] Care Coordinaton (Outreach) Social History Tobacco Use Types Packs/Day Years [...] as of this encounter Progress Notes * Shirley Fuentes - 04/16/2024 11:46 AM EST CHW Shirley Fuentes placed outbound call to patient for follow up call on SDOH needs. No answer at this time. LVM introducing herself from [facility] CM Department. Requested call back. CHW reinforced direct contact information or CM for any additional questions or concerns and extended clinic hours on Mondays and Wednesdays, and Walk-In Urgent Care Located in [facility] of [facility]. Patient provided with after-hours line for [facility], , which offer night timetriage service and option to transfer to hair salon manager provider if needed. CHW will attempt another follow up call within 10 days. documented in this encounter Plan of Treatment Not on file documented as of this encounter Visit Diagnoses Not on filedocumented in this encounter Additional Health Concerns Assessment Noted Time PHQ-9 Depression Total Score: 0 01/05/20 24 11:20 AM EST documented as of this encounter Care Teams Home Insurance Agent Relationship Specialty Start Date End Date Maurice Keyes MD [address] [place] [phone] PCP - General Internal Medicine 07/25/19 documented as of this encounter
--- OUTSIDE RECORDS SUMMARY | 2024-04-21 15:36 | XMS_ITS | Clinical Summary ---
Author Organization [employer] Address [address] [place] [address] Care Team Providers Care Priming Mixture Carrier Name Role Phone Maurice Keyes MD Primary Care Prov ider Allergies No known active allergies Medications allopurinol (Zyloprim) 300 MG tabletIndicatio ns:Idiopathic chronic gout of multiple sites without tophus Take 1 tablet (300 mg) by mouth Once per day. 90 tablet 3 4 07/24/19 25 Active Eliquis 5 MG tablet Take 5 mg by mouth 2 times daily. Active dapagliflozin (Farxiga) 10 MG Take 10 mg by mouth Once per day. Active Entresto 24-26 MG tablet Take 1 tablet by mouth 2 times daily. 2 Active spironolactone (Aldactone) 25 MG tablet Take 12.5 mg by mouth Once per day. Active torsemide (Demadex) 20 MG tablet Take 20 mg by mouth 2 times daily. Active Diclofenac Sodium (Voltaren) 1 % gel Apply 1 g topically 3 times daily. 150 g 1 5 Active Active Problems Problem Noted Date Diagnosed Date Chronic pain of left knee 01/05/2024 Assessment & Plan (01/05/2024 3:29 PM EST): Will send for xray take tylenol as needed Left wrist pain 01/05/2024 Assessment & Plan (03/25/2024 11:46 AM EST): On allopurinol, uric acid decreased from 12.6 to 6.7, patient with persistant episode of gout on both hands will refer to rheumatology Assessment & Plan (01/05/2024 3:29 PM EST): Uric acid 6.5 on allopurinol, will prescribe prednisone for 5 days, call back if not improving Chronic gout without tophus 10/09/2023 Heart failure with reduced ejection fraction Assessment & Plan (03/25/2024 11:45 AM EST): Followed by cardiology, denied shortness of breath or chest pain, will follow up cardiology reccomendations History of pulmonary embolism 10/09/2023 Obstructive sleep apnea syndrome 10/09/2023 Severe obesity 10/09/2023 Essential (primary) hypertension 08/13/2021 Chronic kidney disease 08/13/2021 Encounters Date Type Department Care Team Description 04/16/2024 Patient Outreach [facility] [address] [place] [address] Maurice Keyes MD Care Coordinaton (Outreach) 04/05/2024 Patient Outreach [facility] [address] [place] [address] Maurice Keyes MD Care Coordination (Outreach) 03/25/2024 11:30 AM EST Telemedicine [facility] [address] [place] [address] Maurice Keyes MD Left wrist pain (Primary Dx); Heart failure with reduced ejection fraction (CMS/HCC); Dietary counseling; Exercise counseling; Screening for colon cancer 03/25/2024 Travel 03/24/2024 Telephone [facility] [address] [place] [address] Maurice Keyes MD chart prep 03/22/2024 Telephone [facility] [address] [place] [address] Karen Yanez RN Care Coordination ([facility] initial assessment/ enrollment) 03/18/2024 Patient Outreach [facility] [address] [place] [address] Maurice Keyes MD Care Coordination (Outreach) 03/17/2024 Orders Only GENERIC EXTERNAL DATA DEPARTMENT Provider, Generic External Data from Last 3 Months Social History Tobacco Use Types Packs/Day Years [...] not to disclose 2021 10:16 AM EDT Last Filed Vital Signs Vital Sign Reading Time Taken Comments Blood Pressure 106/72 01/05/2024 11:17 AM EST Pulse 71 01/05/2024 11:17 AM EST Temperature 37.1 ??C (98.7 ??F) 01/05/2024 11:[address] Respiratory Rate 20 01/05/2024 11:17 AM EST Oxygen Saturation - - Inhaled Oxygen Concentration - - Weight 132 kg (290 lb) 01/05/2024 11:17 AM EST Height 170.2 cm (5' 7 ) 01/05/2024 11:17 AM EST Body Mass Index 45.42 01/05/2024 11:17 AM EST Plan of Treatment Health Maintenance Due Date Last Done Comments CT Colonography 1966 Colonoscopy 1966 FIT 1966 FOBT 1966 HIV Screening 1966 Lipid Panel 1966 Sigmoidoscopy 1966 Alcohol/Substance Use Screening 1978 Tobacco Screening 1978 Hepatitis C Screening 1984 DTaP/Tdap/Td Vaccines (1 - Tdap) 1985 Hepatitis B Vaccines (1 of 3 - 19+ 3-dose series) 1985 Pneumococcal Vaccine: 50+ Years (1 of 2 - PCV) 1985 Zoster Vaccines (1 of 2) 2016 COVID-19 Vaccine ( - 2023-2 5 season) 2023 Influenza Vaccine (#1) 2023 9, 12/16/2016 Depression Screening 01/04/2025 01/05/2024, 01/05/2024 SDOH Screening 03/18/2025 03/18/2024 Colorectal Cancer Screening 03/30/2027 FIT DNA/Cologuard 03/30/2027 03/30/2024 RSV Patients and Patients Aged 60 years or older (1 - 1-dose 75+ series) 2041 HIB Vaccines Aged Out No longer eligi ble based on patient's age to complete this topic HPV Vaccines Aged Out No longer eligi ble based on patient's age to complete this topic Hepatitis A Vaccines Aged Out No long er eligible based on patient's age to complete this topic IPV Vaccines Aged Out No longer eligi ble based on patient's age to complete this topic Meningococcal Vaccine Aged Out No broderick cindy eligible based on patient's age to complete this topic RSV under 20 months Aged Out No longe r eligible based on patient's age to complete this topic Rotavirus Vaccines Aged Out No longer eligible based on patient's age to complete this topic Procedures Procedure Name Priority Date/Time Associated Diagnosis Comments LAB COLOGUARD?? COLON CANCER SCREEN Routine 03/30/2024 9:00 PM EST Screening for colon cancer XR HAND WRIST RT Routine 03/17/2024 6:12 PM EST SED RATE BY MODIFIED WESTERGREN Routine 03/17/2024 4:37 PM EST C-REACTIVE PROTEIN Routine 03/17/2024 4: 37 PM EST URIC ACID Routine 03/17/2024 4:37 PM EST COMPREHENSIVE METABOLIC PANEL Routine 03/17/2024 4:37 PM EST CBC WITH AUTO DIFFERENTIAL Routine 03/17/2024 4:37 PM EST from Last 3 Months Results * Cologuard?? colon cancer screening (03/30/2024 9:00 PM EST) Cologuard Result Negative Negative 04/08/19 11:29 PM EST [email or web address] (CLIA #:[id number]) Comment: NEGATIVE TEST RESULT. A negative Cologuard [...] cancer. ??Following a negative Cologuard result, the [place] [employer] and U.S. Multi-Society Task Force screening guidelines recommend a Cologuard re-screening interval of 3 years. References: [place] [employer] Guideline for Colorectal Cancer Screening: https://www.cancer.org/cancer/elvkg-axrhop-labtvz/kuudpihql-nhltrcfzf-aftuzmy/ac s-rec ommendations.html.; Mike POLLARD, Joy MARIE, Casandra HOPPER, Colorectal Cancer Screening: Recommendations for Physicians and Patients from the U.S. Multi-Society Task Force on Colorectal Cancer Screening , Am J Gastroenterology 2017; 112:0613-1797. TEST DESCRIPTION: Composite algorithmic analysis of stool [...] (Yoav Bhat al, N Engl J Med 2014;370(14):2723-4755.) Cologuard may produce a false negative or false positive result (no colorectal cancer or precancerous polyp present at colonoscopy follow up). A negative Cologuard test result does not guarantee the absence of CRC or advanced adenoma (pre-cancer). The current Cologuard screening interval is every 3 years. ([place] [employer] and U.S. Multi-Society Task Force). Cologuard performance data in a 10,000 patient pivotal study using colonoscopy as the reference method can be accessed at the following location: www.[employer]/results. Additional description of the Cologuard test process, warnings and precautions can be found at www.coleduliord.biNu. Stool specimen (specimen) 03/30/2024 9:00 PM EST 04/01/2024 2:04 PM EST Maurice Odom MD LAB MOLECULAR DIAG NOSTICS ORDERABLES Final Result [email or web address] (CLIA #:[id number]) [address] [place] [address], * XR HAND WRIST RT (03/17/2024 6:12 PM EST) Anatomical Region Laterality Modality Abdomen Radiographic Ashley ging 03/17/2024 6:12 PM EST Narrative 03/17/2024 6:14 PM EST ? [facility] ?[address] ?[place] [address] ?XRay Report ? Signed ? Patient: Phillip Garvin ?MR#: [id number] ?? [id number] ? : 1965 ?Acct:[id number] ? Age/Sex: 58 / M ?ADM Date: 03/17/24 ? Loc: HO.ED ? Attending Dr: ? Ordering Physician: Mireya Giordano NP ?? Date of Service: 03/17/24 ?? Procedure(s): XR hand wrist RT ?? Accession Number(s): [id number] ? cc: Maurice Keyes MD; Mireya Giordano [...] document has been electronically signed by: Georgia Guillremo MD on ?? 03/17/2024 18:12:52 ? Dictated By: ?Gerogia Guillermo MD ? Signed By: ?<Electronically signed by Georgia Guillermo MD in OV> ? 03/17/241813 ? DD/ 11 ? TD/TT: 03/17/24 181 ? Personal Banking Officer: ? Procedure Note Donmichele, Image - 03/17/[address] [address] XRay Report Signed Patient: Phillip Garvin MMR#: [id number] : 1965Acct:[id number] Age/Sex: 58 / MADM Date: 03/17/24 Loc: HO.ED Attending Dr: Ordering Physician: Mireya Giordano NP Date of Service: 03/17/24 Procedure(s): XR hand wrist RT Accession Number(s): [id number] cc: Maurice Keyes MD; Mireya Giordano NP [...] in OV> 03/17/241813 DD/ 11 TD/TT: 03/17/241811 Personal Banking Officer: [facility] External Provider IMG XR PROCEDURES Final Result * (ABNORMAL) CBC auto differential (03/17/2024 4:37 PM EST) White Blood Count 12.4(H) 4.8 - 10.8 X10*3/uL [facility] Red Blood Count 4.41(L) 4.60 - 5.80 X10*6/uL [facility] Hemoglobin 13.3(L) 14.0 - 18.0 g/dl [facility] Hematocrit 40.1(L) 42.0 - 52.0 % [facility] Mean Corpuscular Volume 90.9 80.0 - 98.0 fL [facility] Mean Corpuscular Hemoglobin 30.2 27.0 - 33.0 pg [facility] Mean Corpuscular HGB Conc 33.2 31.0 - 36.0 g/dl [facility] Red Cell Distribution Width 14.1 11.0 - 16.0 % [facility] Platelet Count 217 160 - 400 X10*3/uL [facility] Mean Platelet Volume 11.6 9.4 - 12.4 fL [facility] Neutrophils Percent Auto 82.1(H) 45 - 73 % [facility] Imm Gran Pct Auto 0.4 0.0 - 0.4 % [facility] Lymphocytes Percent Auto 7.9(L) 20 - 40 % [facility] Monocytes Percent Auto 8.7 2 - 11 % [facility] Eosinophils Percent Auto 0.7 0 - 4 % [facility] Basophils Percent Auto 0.2 0 - 2 % [facility] NRBC Pct Auto 0.0 0.0 - 0.2 /100WBC [facility] Neutrophils Absolute Auto 10.2(H) 2.0 - 8.3 x10*3/uL [facility] Imm Gran Abs Auto 0.05(H) 0.00 - 0.03 X10*3/uL [facility] Lymphocytes Absolute Auto 1.0(L) 1.2 - 4.9 X10*3/uL [facility] Monocytes Absolute Auto 1.1 0.1 - 1.2 X10*3/uL [facility] Eosinophils Absolute Auto 0.1 0.0 - 0.4 X10*3/uL [facility] Basophils Absolute Auto 0.0 0.0 - 0.2 X10*3/uL [facility] NRBC Abs Auto 0.000 0.0 - 0.012 X10*3/uL [facility] 03/17/2024 4:37 PM EST 03/17/2024 4:41 PM EST us Generic External Data Provider LAB BLOOD ORDERAB LES Final Result Performing Organization Address [facility] Co de Phone Number [facility] [address] [place] [phone] * (ABNORMAL) Sed Rate by Modified Toriren (03/17/2024 4:37 PM EST) Erythrocyte Sedimentation Rate 53(H) 0 - 15 MM/HR [facility] Comment:Patients with polycy themia and many hemoglobin abnormalitiesmay have depressed sed rates whereas patients with anemiamay have elevated sed rates. 03/17/2024 4:37 PM EST 03/17/2024 4:41 PM EST us Generic External Data Provider LAB BLOOD ORDERAB LES Final Result Performing Organization Address [facility] de Phone Number [facility] [address] [place] [phone] * (ABNORMAL) C-reactive Protein (03/17/2024 4:37 PM EST) C Reactive Protein 15.13(H) < or = 0.50 mg/dL [facility] 03/17/2024 4:37 PM EST 03/17/2024 4:41 PM EST us Generic External Data Provider LAB BLOOD ORDERAB LES Final Result Performing Organization Address [facility] de Phone Number [facility] [address] [place] [phone] * Uric acid (03/17/2024 4:37 PM EST) Uric Acid 6.7 3.4 - 7.0 mg/dL [facility] 03/17/2024 4:37 PM EST 03/17/2024 4:41 PM EST us Generic External Data Provider LAB BLOOD ORDERAB LES Final Result [facility] [address] [place] [phone] [phone] * (ABNORMAL) Comprehensive Metabolic Panel (03/17/2024 4:37 PM EST) Sodium 139 135 - 145 mmol/L [facility] Potassium 3.8 3.3 - 5.1 mmol/L [facility] Chloride 107 96 - 108 mmol/L [facility] Carbon Dioxide 22 22 - 29 mmol/L [facility] Anion Gap 14 12 - 20 [facility] Urea Nitrogen (BUN) 25(H) 9 - 16 mg/dL [facility] Creatinine, Serum 1.19 0.5 - 1.4 mg/dL [facility] Creatinine Clr Calc Pharmacy 90.4 [facility] Comment:eGFR (calculated fro m the MDRD study equation) and eCrCl(calculated from the Cockcroft-Gault equation) are based ondifferent parameters and may not yield comparable results.If eCrCl result is absurd, please check patient'sheight/weight. Estimated Glomerular Filt Rate >60 [facility] Comment:Chronic Kidney Disea se: Estimated GFR < 60 mL/min/1.88m7Yfjsbm Kidney Disease: Estimated GFR < 15 mL/min/1.73m2 Glucose 103 60 - 115 mg/dL [facility] Calcium 9.6 8.4 - 10.2 mg/dL [facility] Bilirubin, Total 1.3(H) 0.0 - 1.0 mg/dL [facility] Aspartate Amino Transferase 20 5 - 37 U/L [facility] Alanine Aminotransferase 8 0 - 40 U/L [facility] Total Protein 8.1(H) 6.5 - 8.0 g/dL [facility] Albumin Level 3.9 3.5 - 5.0 g/dL [facility] Alkaline Phosphatase 76 39 - 117 U/L [facility] 03/17/2024 4:37 PM EST 03/17/2024 4:41 PM EST us Generic External Data Provider LAB BLOOD ORDERAB LES Final Result [facility] [address] [place] [phone] [phone] from Last 3 Months [facility] Care Teams Priming Mixture Carrier Relationship Specialty Start Date End Date Maurice Keyes MD [address] [place] [address] [phone] PCP - General Internal Medicine 07/25/19
--- OUTSIDE RECORDS SUMMARY | 2024-04-21 15:36 | XMS_ITS | Encounter Summary ---
Author Organization [employer] Address [address] [place] [address] Care Team Providers Care Needle Felt Making Machine Operator Name Role Phone Maurice Keyes MD Primary Care Prov ider Encounter Details Date Type Department Care Team (Latest Contact Info) Description 03/25/2024 Travel Social History Tobacco Use Types Packs/Day Years Used Date Smoking Tobacco: Never Assessed Depression Answer Date Recorded Patient Health Questionnaire-9 Score 0 01/05/2024 Patient Health Questionnaire-9 Score 0 01/05/2024 Last PHQ-9: Questionnaire Data Not on file 1 03/06/2023 Housing Stability Answer Date Recorded What is your housing situation today? I have brittny ruiz 01/05/[address] you li [...] as of this encounter Plan of Treatment Not on file documented as of this encounter Visit Diagnoses Not on filedocumented in this encounter Additional Health Concerns Assessment Noted Time PHQ-9 Depression Total Score: 0 01/05/20 24 11:20 AM EST documented as of this encounter Care Teams Needle Felt Making Machine Operator Relationship Specialty Start Date End Date Maurice Keyes MD [address] [place] [phone] PCP - General Internal Medicine 07/25/19 documented as of this encounter
--- OUTSIDE RECORDS SUMMARY | 2024-04-21 15:36 | XMS_ITS | Encounter Summary ---
Author Organization [employer] Address [address] [facility] [facility] [address] [place] [address] Care Team Providers Care Animal Cruelty Investigator Name Role Phone Maurice Keyes MD Primary Care Prov ider Reason for Visit * Reason Comments Care Coordination Outreach Encounter Details Date Type Department Care Team (Latest Contact Info) Description 04/05/2024 Patient Outreach [facility] [address] [place], [place] [phone] Maurice Keyes MD [address] [place] [address] Care Coordination (Outreach) Social History Tobacco Use Types Packs/Day [...] encounter Progress Notes * Shirley Fuentes - 04/05/2024 3:12 PM EST CHW Shirley Fuentes placed outbound call to patient to follow up on SDOH needs. Patient's name, and address confirmed. Patient states is doing well. No further questions or concerns. CHW reinforced direct contact information or CM for any additional questions or concerns and extended clinic hours on Mondays and Wednesdays, and Walk-In Urgent Care Located in [facility]. Patient provided with after-hours line for [facility], , which offer night time triage service and option to transfer to airborne operations manager provider if needed. Patient verbalizes understanding, and able to repeat back to policy writer. A follow up call willbe placed within 10 days, patient agrees with plan. documented in this encounter Plan of Treatment Not on file documented as of this encounter Visit Diagnoses Not on filedocumented in this encounter Additional Health Concerns Assessment Noted Time PHQ-9 Depression Total Score: 0 01/05/20 24 11:20 AM EST documented as of this encounter Care Teams Animal Cruelty Investigator Relationship Specialty Start Date End Date Maurice Keyes MD [address] [place] [phone] PCP - General Internal Medicine 07/25/19 documented as of this encounter
--- OUTSIDE RECORDS SUMMARY | 2024-04-21 15:36 | XMS_ITS | Clinical Summary ---
Author Organization [facility] Facility Address [address] [place] [phone] Care Team Providers Care Bioinformatics Scientist Name Role Phone Maurice Snider Primary Care [...] Vaccine (#1) 2023 Insurance [place] Care Teams Bioinformatics Scientist Relationship Specialty Start Date End Date Maurice Snider PCP - General Internal Medicine 08/06/21
--- OUTSIDE RECORDS SUMMARY | 2024-04-21 15:36 | XMS_ITS | Encounter Summary ---
Author Organization [employer] Address [address] [facility] [address] [place] [address] Care Team Providers Care Blurb Writer Name Role Phone Maurice Keyes MD Primary Care Prov ider Reason for Visit * Reason Onset Date Comments chart prep 03/24/2024 Encounter Details Date Type Department Care Team ([facility] st Contact Info) Description 03/24/2024 Telephone [facility] [address] [place], [place] [phone] Maurice Keyes MD [address] [place] [address] chart prep Social History Tobacco Use Types Packs/Day Years [...] encounter Miscellaneous Notes * Telephone Encounter - Love Triana [place] - 03/24/2024 10:59 AM EST Chart Prep Labs: done Images: done Vaccines due: yes Referrals: pending appt Screenings: colonoscopy Overdue care gaps: Sbirt documented in this encounter Plan of Treatment Not on file documented as of this encounter Visit Diagnoses Not on filedocumented in this encounter Additional Health Concerns Assessment Noted Time PHQ-9 Depression Total Score: 0 01/05/20 24 11:20 AM EST documented as of this encounter Care Teams Blurb Writer Relationship Specialty Start Date End Date Maurice Keyes MD [address] [place] [phone] PCP - General Internal Medicine 07/25/19 documented as of this encounter
== END 2024-04-21 12:42 | disposition home or self-care (01) ==
PROVIDERS: Emergency Provider Internal Medicine; PCP Internal Medicine
DX: M10.9 Gout, unspecified (principal); M79.672 Pain in left foot
CPT/HCPCS: 96372; 99283; 99284; J1885

== ENCOUNTER 2024-06-19 10:19 | Outpatient (REF) | payer MEDICAID, SELFPAY ==
--- OUTSIDE RECORDS SUMMARY | 2024-06-19 10:22 | XMS_ITS | Clinical Summary ---
Author Organization [facility] Facility Address [address] [place] [phone] Care Team Providers Care Edgerman Name Role Phone Maurice Snider Primary Care [...] Health Maintenance Due Date Last Done Comments Hepatitis B Vaccine (1 of 3 - 19+ 3-dose series) 11/24 Pneumococcal Vaccine: 50+ Years (1 of 2 - PCV) 986 Colorectal Cancer Screening: Annual FOBT 11/25/2015 Colorectal Cancer Screening: Colonoscopy 11/25/2015 Colorectal Cancer Screening: Sigmoidoscopy 11/25/2015 Influenza Vaccine (Season Ended) 2024 Insurance [place] Care Teams Edgerman Relationship Specialty Start Date End Date Maurice Snider PCP - General Internal Medicine 08/06/21
--- OUTSIDE RECORDS SUMMARY | 2024-06-19 10:22 | XMS_ITS | Clinical Summary ---
Author Organization [employer] Address [address] [place] [address] Care Team Providers Care Rest Room Maid Name Role Phone Maurice Keyes MD Primary Care Prov ider Allergies No known active allergies Medications allopurinol (Zyloprim) 300 MG tabletIndicati ons:Idiopathic chronic gout of multiple sites without tophus Take 1 tablet (300 mg) by mouth Once per day. 90 tablet 3 07/24/19 24 025 Active Eliquis 5 MG tablet Take 5 mg by mouth 2 times daily. Active dapagliflozin (Farxiga) 10 MG Take 10 mg by mouth Once per day. Active Entresto 24-26 MG tablet Take 1 tablet by mouth 2 times daily. 07/05/19 22 Active spironolactone (Aldactone) 25 MG tablet Take 12.5 mg by mouth Once per day. Active torsemide (Demadex) 20 MG tablet Take 20 mg by mouth 2 times daily. Active Diclofenac Sodium 1 % gelIndications :Chronic pain of left knee APPLY 1 GRAM TOPICALLY 3 TIMES DAILY. 100 g 1 05/25/19 25 Active diclofenac (Cataflam) 50 MG tablet Take 1 tablet (50 mg) by mouth 2 times daily. 60 tablet 1 05/21/19 25 026 Active Diclofenac Sodium (Voltaren) 1 % gel Apply 1 g topically 3 times daily. 150 g 1 03/25/19 25 025 Discontinued Active Problems Problem Noted Date Diagnosed Date [...] not improving Chronic gout without tophus 10/09/2023 Assessment & Plan (05/31/2024 2:34 PM EDT): On allopurinol, encouraged to keep current treatment, symptoms have improved, has follow up with rheumatolgy in july Heart failure with reduced ejection fraction Assessment & Plan (03/25/2024 11:45 AM EST): Followed by cardiology, denied shortness of breath or chest pain, will follow up cardiology reccomendations History of pulmonary embolism 10/09/2023 Obstructive sleep apnea syndrome 10/09/2023 Severe obesity 10/09/2023 Essential (primary) hypertension 08/13/2021 Assessment & Plan (05/31/2024 2:33 PM EDT): Patient not monitoring his blood pressure at home, encouraged to keep, low sodium diet, keep bp log, will follow up in 3 months Chronic kidney disease 08/13/2021 Encounters Date Type Department Care Team Description 06/16/2024 Telephone [facility] [address] [place] [address] Maurice Keyes MD Care Coordination (C3CM f/u call/ program graduation) 06/02/2024 Patient Outreach [facility] [address] [place] [address] Maurice Keyes MD Care Coordination (C3/CM F/U) 05/31/2024 1:45 PM EDT Telemedicine [facility] [address] [place] [address] Maurice Keyes MD Essential (primary) hypertension (Primary Dx); 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 05/31/2024 Travel 05/27/2024 Orders Only [facility] [address] [place] [address] Maurice Keyes MD 05/24/2024 Patient Outreach [facility] [address] [place] [id number] Maurice Keyes MD Care Coordination (Outreach) 05/20/2024 Orders Only [facility] [address] [place] [address] Maurice Keyes MD 05/18/[address] [address] Maurice Keyes MD Chronic pain of left knee 05/11/2024 Patient Outreach [address] [address] Maurice Keyes MD Care Coordination (Outreach) 05/11/2024 Telephone [facility] [address] [place] [address] Maurice Keyes MD Care Coordination ([facility] f/u call) 04/28/2024 Refill [facility] [address] [place] [address] Maurice Keyes MD 04/16/2024 Patient Outreach [facility] [address] [place] [address] Maurice Keyes MD Care Coordinaton (Outreach) 04/05/2024 Patient Outreach [facility] [address] [place] [address] Maurice Keyes MD Care Coordination (Outreach) 03/25/2024 11:30 AM EST Telemedicine [facility] [address] [place] [address] Maurice Keyes MD Left wrist pain (Primary Dx); Heart failure with reduced ejection fraction (CMS/HCC); Dietary counseling; Exercise counseling; Screening for colon cancer 03/25/2024 Travel 03/24/2024 Telephone [facility] [address] [place] [address] Maurice Keyes MD chart prep 03/22/2024 Telephone [facility] [address] [place] [address] Karen Yanez RN Care Coordination ([facility] initial assessment/ enrollment) from Last 3 Months Social History Tobacco [...] 01/05/2024 11:17 AM EST Plan of Treatment Upcoming Encounters Date Type Department Care Team (Late st Contact Info) Description 08/30/2024 1:15 PM EDT Office Visit [facility] [address] [place], [place] [phone] Maurice Keyes MD [address] [place] [address] Health Maintenance Due Date Last Done Comments [...] 9:00 PM EST Screening for colon cancer from Last 3 Months Results * Cologuard?? colon cancer screening (03/30/2024 9:00 PM EST) Cologuard Result Negative Negative 04/08/19 11:29 PM EST [facility] (CLIA #:[id number]) Comment: NEGATIVE TEST RESULT. A negative Cologuard [...] cancer. ??Following a negative Cologuard result, the [place] Cancer Society and U.S. Multi-Society Task Force screening guidelines recommend a Cologuard re-screening interval of 3 years. References: [place] [employer] Guideline for Colorectal Cancer Screening: https://www.cancer.org/cancer/napfb-sciidz-zudouf/cdprkiabe-tkodwjbpy-vgkaech/ac s-rec ommendations.html.; Mike DK, Joy CR, Casandra WongK, Colorectal Cancer Screening: Recommendations for Physicians and Patients from the U.S. Multi-Society Task Force on Colorectal Cancer Screening , Am J Gastroenterology 2017; 112:0921-6082. TEST DESCRIPTION: Composite algorithmic analysis of stool [...] (Yoav Bhat al, N Engl J Med 2014;370(14):5569-3555.) Cologuard may produce a false negative or false positive result (no colorectal cancer or precancerous polyp present at colonoscopy follow up). A negative Cologuard test result does not guarantee the absence of CRC or advanced adenoma (pre-cancer). The current Cologuard screening interval is every 3 years. ([place] [employer] and U.S. Multi-Society Task Force). Cologuard performance data in a 10,000 patient pivotal study using colonoscopy as the reference method can be accessed at the following location: www.[employer]results. Additional description of the Cologuard test process, warnings and precautions can be found at www.colQuick Hangrd.com. Stool specimen (specimen) 03/30/2024 9:00 PM EST 04/01/2024 2:04 PM EST Maurice Odom MD LAB MOLECULAR DIAG NOSTICS ORDERABLES Final Result [facility] (CLIA #:[id number]) [address] [place] [address], from Last 3 Months [facility] Care Teams Rest Room Maid Relationship Specialty Start Date End Date SniderMaurice Valdez MD [address] [place] [id number] PCP - General Internal Medicine 07/25/19
--- OUTSIDE RECORDS SUMMARY | 2024-06-19 10:22 | XMS_ITS | Encounter Summary ---
Author Organization [employer] Address [address] [place] [address] Care Team Providers Care Tower Control Operator Name Role Phone Maurice Keyes MD Primary Care Prov ider Encounter Details Date Type Department Care Team ([facility] st Contact Info) Description 05/27/2024 Orders Only [facility] [address] [place], [place] [phone] Maurice Keyes MD [address] [place] [address] Social History Tobacco Use Types Packs/Day Years [...] Upcoming Encounters Date Type Department Care Team ([facility] st Contact Info) Description 08/30/2024 1:15 PM EDT Office Visit [facility] [address] [place] [address] Maurice Keyes MD [address] [place] [address] documented as of this encounter Visit Diagnoses Not on filedocumented in this encounter Additional Health Concerns Assessment Noted Time PHQ-9 Depression Total Score: 0 01/05/20 24 11:20 AM EST documented as of this encounter Care Teams Tower Control Operator Relationship Specialty Start Date End Date Maurice Keyes MD [address] [place] [address] PCP - General Internal Medicine 07/25/19 documented as of this encounter
--- OUTSIDE RECORDS SUMMARY | 2024-06-19 10:22 | XMS_ITS | Encounter Summary ---
Author Organization [employer] Address [address] [place] [address] Care Team Providers Care Forest Worker Name Role Phone Maurice Keyes MD Primary Care Prov ider Reason for Visit * Reason Onset Date Comments Referral 01/01/2024 Encounter Details Date Type Department Care Team ([facility] st Contact Info) Description 01/01/2024 Telephone [facility] [address] [place] [address] Maurice Keyes MD [address] [place] [address] Referral Social History Tobacco Use Types Packs/Day [...] Miscellaneous Notes * Telephone Encounter - Tiago Miguel - 01/01/2024 3:09 PM EST Tc from pt requesting a referral to be seen with [facility]. Please contact pt at [phone]. (Mohawk Speaker) documented in this encounter Plan of Treatment Upcoming Encounters Date Type Department Care Team (Late st Contact Info) Description 08/30/2024 1:15 PM EDT Office Visit [facility] [address] [place] [address] Maurice Keyes MD [address] [place] [address] documented as of this encounter Visit Diagnoses Not on filedocumented in this encounter Care Teams Forest Worker Relationship Specialty Start Date End Date Maurice Keyes MD [address] [place] [address] PCP - General Internal Medicine 07/25/19 documented as of this encounter
[2024-06-19 10:31] LABS: MANUAL DIFF FLAG NO
[2024-06-19 10:46] LABS: Basophils Percent Auto 0.5 % (0-2); Eosinophils Absolute Auto 0.2 X10*3/uL (0.0-0.4); Eosinophils Percent Auto 3.1 % (0-4); Hematocrit 42.1 % (42.0-52.0); Hemoglobin 13.6 g/dl (14.0-18.0); Imm Gran Abs Auto 0.02 X10*3/uL (0.00-0.03); Imm Gran Pct Auto 0.3 % (0.0-0.4); Lymphocytes Absolute Auto 0.8 X10*3/uL (1.2-4.9); Lymphocytes Percent Auto 10.5 % (20-40); Mean Corpuscular HGB Conc 32.3 g/dl (31.0-36.0); Mean Corpuscular Volume 92.7 fL (80.0-98.0); Mean Platelet Volume 11.3 fL (9.4-12.4); Monocytes Absolute Auto 0.5 X10*3/uL (0.1-1.2); Monocytes Percent Auto 6.6 % (2-11); Neutrophils Absolute Auto 6.1 x10*3/uL (2.0-8.3); Platelet Count 203 X10*3/uL (160-400); Red Blood Count 4.54 X10*6/uL (4.60-5.80); Red Cell Distribution Width 14.9 % (11.0-16.0); White Blood Count 7.7 X10*3/uL (4.8-10.8)
[2024-06-19 11:13] LABS: Alanine Aminotransferase 17 U/L (0-40); Albumin Level 4.1 g/dL (3.5-5.0); Alkaline Phosphatase 103 U/L (39-117); Anion Gap 10 (12-20); Aspartate Amino Transferase 24 U/L (5-37); Bilirubin Total 1.3 mg/dL (0.0-1.0); Blood Urea Nitrogen 26 mg/dL (9-16); Calcium 9.6 mg/dL (8.4-10.2); Carbon Dioxide 25 mmol/L (22-29); Chloride 110 mmol/L (96-108); Cholesterol 167 mg/dL (<200); Estimated Glomerular Filt Rate > 60; Glucose Random 98 mg/dL (60-115); HDL Cholesterol 48 mg/dL (>40); LDL Cholesterol Calculated 106 mg/dL (<100); Potassium 4.5 mmol/L (3.3-5.1); Sodium 140 mmol/L (135-145); Total Protein 7.1 g/dL (6.5-8.0); Triglycerides 66 mg/dL (<150); Uric Acid 6.1 mg/dL (3.4-7.0)
[2024-06-19 11:30] LABS: TSH reflex Free T4 1.94 uIU/mL (0.32-4.0)
[2024-06-21 08:13] LABS: HIV AB/AG Nonreactive (Nonreactive); HIV Num 1 0.06 S/CO (0.00-0.99); ~HepC Num1 0.07 S/CO (0.00-0.79); ~Hepatitis C Antibody Nonreactive (Nonreactive)
== END 2024-06-19 10:20 | disposition home or self-care (01) ==
LOC: HO.LAB 10:19
PROVIDERS: Absent Provider Internal Medicine Hypertension Specialist; PCP Internal Medicine; Visit Provider Internal Medicine
DX: N18.30 Chronic kidney disease, stage 3 unspecified (principal); I42.9 Cardiomyopathy, unspecified; I50.20 Unspecified systolic (congestive) heart failure; Z11.59 Encounter for screening for other viral diseases
CPT/HCPCS: 36415; 80053; 80061; 84443; 84550; 85025; 86803; 87389

== ENCOUNTER 2024-07-05 12:42 | Outpatient (AMB) | payer MEDICAID, SELFPAY ==
--- OUTSIDE RECORDS SUMMARY | 2024-07-05 13:02 | XMS_ITS | Encounter Summary ---
Author Organization [employer] Address [address] [place] [address] Care Team Providers Care Hot Header Operator Name Role Phone Maurice Keyes MD Primary Care Prov ider Encounter Details Date Type Department Care Team ([facility] st Contact Info) Description 05/27/2024 Orders Only [facility] [address] [place], [place] [phone] Maurice Keyes MD [address] [place], [place] [phone] Social History Tobacco Use Types Packs/Day Years Used Date Smoking Tobacco: Never Assessed Depression Answer Date Recorded Patient Health Questionnaire-9 Score 0 01/05/2024 Patient Health Questionnaire-9 Score 0 01/05/2024 Last PHQ-9: Questionnaire Data Not on file 1 03/06/2023 Housing Stability Answer Date Recorded What is your housing situation today? I have brittnykasie melchor 01/05/[address] you [...] Upcoming Encounters Date Type Department Care Team ([facility] st Contact Info) Description 08/30/2024 1:15 PM EDT Office Visit [facility] [address] [place] [address] Maurice Keyes MD [address] [place] [address] documented as of this encounter Visit Diagnoses Not on filedocumented in this encounter Additional Health Concerns Assessment Noted Time PHQ-9 Depression Total Score: 0 01/05/20 24 11:20 AM EST documented as of this encounter Care Teams Hot Header Operator Relationship Specialty Start Date End Date Maurice Keyes MD [address] [place] [address] PCP - General Internal Medicine 07/25/19 documented as of this encounter
--- OUTSIDE RECORDS SUMMARY | 2024-07-05 13:02 | XMS_ITS | Encounter Summary ---
Author Organization [employer] Address [address] [place] [address] Care Team Providers Care Radio Assembler Name Role Phone Maurice Keyes MD Primary Care Prov ider Reason for Visit * Reason Onset Date Comments Referral 01/01/2024 Encounter Details Date Type Department Care Team ([facility] st Contact Info) Description 01/01/2024 Telephone [facility] [address] [place] [address] Maurice Keyes MD [address] [place] [address] Referral Social History Tobacco Use Types Packs/Day [...] encounter Miscellaneous Notes * Telephone Encounter - iTago Miguel - 01/01/2024 3:09 PM EST Tc from pt requesting a referral to be seen with [facility]. Please contact pt at [phone]. (English Speaker) documented in this encounter Plan of Treatment Upcoming Encounters Date Type Department Care Team (Late st Contact Info) Description 08/30/2024 1:15 PM EDT Office Visit [facility] [address] [place] [address] Maurice Keyes MD [address] [place] [address] documented as of this encounter Visit Diagnoses Not on filedocumented in this encounter Care Teams Radio Assembler Relationship Specialty Start Date End Date Maurice Keyes MD [address] [place] [address] PCP - General Internal Medicine 07/25/19 documented as of this encounter
--- OUTSIDE RECORDS SUMMARY | 2024-07-05 13:02 | XMS_ITS | Clinical Summary ---
Author Organization [employer] Address [address] [facility] [facility] [address] [place] [address] Care Team Providers Care Ribbon Blocker Name Role Phone Maurice Keyes MD Primary [...] times daily. Active Diclofenac Sodium 1 % gelIndications: Chronic pain of left knee APPLY 1 GRAM TOPICALLY 3 TIMES DAILY. 100 g 1 5 Active diclofenac (Cataflam) 50 MG tablet Take 1 tablet (50 mg) by mouth 2 times daily. 60 tablet 1 5 05/21/19 26 Active Active Problems Problem Noted Date Diagnosed [...] Encounters Date Type Department Care Team Description 06/19/2024 Orders Only GENERIC EXTERNAL DATA DEPARTMENT Provider, Generic External Data 06/16/2024 Telephone [facility] [address] [place] [address] Maurice Keyes MD Care Coordination (C3CM f/u call/ program graduation) 06/02/2024 Patient Outreach [facility] [address] [place] [address] Maurice Keyes MD Care Coordination (C3/CM F/U) 05/31/2024 1:45 PM EDT Telemedicine [facility] [address] [place] [address] Maurice Keyes MD Essential (primary) hypertension (Primary Dx); 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 05/31/2024 Travel 05/27/2024 Orders Only [facility] [address] [place] [address] Maurice Keyes MD 05/24/2024 Patient Outreach [facility] [address] [place] [phone] Maurice Keyes MD Care Coordination (Outreach) 05/20/2024 Orders Only [facility] [address] [place] [address] Maurice Keyes MD 05/18/2024 Refill [facility] [address] [place] [phone] Maurice Keyes MD Chronic pain of left knee 05/11/2024 Patient Outreach [address] [address] Maurice Keyes MD Care Coordination (Outreach) 05/11/2024 Telephone [facility] [address] [place] [address] Maurice Keyes MD Care Coordination (C3CM f/u call) 04/28/2024 Refill [facility] [address] [place] [address] Maurice Keyes MD 04/16/2024 Patient Outreach [facility] [address] [place] [address] Maurice Keyes MD Care Coordinaton (Outreach) from Last 3 Months Social History Tobacco [...] 08/30/2024 1:15 PM EDT Office Visit [facility] [address], [place] [phone] Maurice Keyes MD [address] [place] [address] Health Maintenance Due Date Last Done Comments CT Colonography 1966 Colonoscopy 1966 FIT 1966 FOBT 1966 Sigmoidoscopy 1966 Alcohol/Substance Use Screening 1978 Tobacco Screening 1978 DTaP/Tdap/Td Vaccines (1 - Tdap) 1985 Hepatitis [...] Cancer Screening 03/30/2027 FIT DNA/Cologuard 03/30/2027 03/30/2024 Lipid Panel 06/19/2029 06/19/2024 RSV Patients and Patients Aged 60 years or older (1 - 1-dose 75+ series) 2041 HIV Screening Completed 06/19/2024 Hepatitis C Screening Completed 06/19/2024 HIB Vaccines Aged Out No longer eligi [...] Procedure Name Priority Date/Time Associated Diagnosis Comments URIC ACID Routine 06/19/2024 10:29 AM EDT HEPATITIS C AB W/REFL TO HCV RNA, QN, PCR Routine 06/19/2024 10:29 AM EDT Heart failure with reduced ejection fraction (CMS/HCC) HIV 1/2 ANTIGEN/ANTIBODY, FOURTH GENERATION W/RFL Routine 06/19/2024 10:29 AM EDT Heart failure with reduced ejection fraction (CMS/HCC) TSH W/REFLEX TO FT4 Routine 06/19/2024 1 0:29 AM EDT Heart failure with reduced ejection fraction (CMS/HCC) LIPID PANEL, STANDARD Routine 06/19/2024 10:29 AM EDT Heart failure with reduced ejection fraction (CMS/HCC) COMPREHENSIVE METABOLIC PANEL Routine 06/19/2024 10:29 AM EDT Heart failure with reduced ejection fraction (CMS/HCC) CBC WITH AUTO DIFFERENTIAL Routine 06/19/2024 10:29 AM EDT Heart failure with reduced ejection fraction (CMS/HCC) LAB COLOGUARD?? COLON CANCER SCREEN Routine 03/30/2024 9:00 PM EST Screening for colon cancer from Last 3 Months or Most Recently Relevant to Health Maintenance Results * TSH W/Reflex to FT4 (06/19/2024 10:29 AM EDT) Pathologist [facility] TSH reflex Free T4 1.94 0.32 - 4.0 uIU/mL [facility] Blood Venous blood specimen / Unknown 06/19/2024 10:29 AM EDT 06/19/2024 10:29 AM EDT us Maurice Odom MD LAB BLOOD ORDERABL ES Final Result [facility] [address] [place] [phone] * (ABNORMAL) CBC auto differential (06/19/2024 10:29 AM EDT) White Blood Count 7.7 4.8 - 10.8 X10*3/uL [facility] Red Blood Count 4.54(L) 4.60 - 5.80 X10*6/uL [facility] Hemoglobin 13.6(L) 14.0 - 18.0 g/dl [facility] Hematocrit 42.1 42.0 - 52.0 % [facility] Mean Corpuscular Volume 92.7 80.0 - 98.0 fL [facility] Mean Corpuscular Hemoglobin 30.0 27.0 - 33.0 pg [facility] Mean Corpuscular HGB Conc 32.3 31.0 - 36.0 g/dl [facility] Red Cell Distribution Width 14.9 11.0 - 16.0 % [facility] Platelet Count 203 160 - 400 X10*3/uL [facility] Mean Platelet Volume 11.3 9.4 - 12.4 fL [facility] Neutrophils Percent Auto 79.0(H) 45 - 73 % [facility] Imm Gran Pct Auto 0.3 0.0 - 0.4 % [facility] Lymphocytes Percent Auto 10.5(L) 20 - 40 % [facility] Monocytes Percent Auto 6.6 2 - 11 % [facility] Eosinophils Percent Auto 3.1 0 - 4 % [facility] Basophils Percent Auto 0.5 0 - 2 % [facility] NRBC Pct Auto 0.0 0.0 - 0.2 /100WBC [facility] Neutrophils Absolute Auto 6.1 2.0 - 8.3 x10*3/uL [facility] Imm Gran Abs Auto 0.02 0.00 - 0.03 X10*3/uL [facility] Lymphocytes Absolute Auto 0.8(L) 1.2 - 4.9 X10*3/uL [facility] Monocytes Absolute Auto 0.5 0.1 - 1.2 X10*3/uL [facility] Eosinophils Absolute Auto 0.2 0.0 - 0.4 X10*3/uL [facility] Basophils Absolute Auto 0.0 0.0 - 0.2 X10*3/uL [facility] NRBC Abs Auto 0.000 0.0 - 0.012 X10*3/uL [facility] Blood Venous blood specimen / Unknown 06/19/2024 10:29 AM EDT 06/19/2024 10:29 AM EDT Maurice Odom MD LAB BLOOD ORDERABL ES Final Result Performing Organization Address [facility] Co de Phone Number [facility] [address] [place] [phone] * Hepatitis C Antibody with Reflex to HCV, RNA, Quantitative, Real-Time PCR (06/19/2024 10:29 AM EDT) Pathologist [facility] Hepatitis C Antibody Nonreactive Nonreactive [facility] Comment:Antibodies to HCV no t detected; does not exclude early acuteHCV infection. Blood Venous blood specimen / Unknown 06/19/2024 10:29 AM EDT 06/19/2024 10:29 AM EDT Maurice Odom MD LAB BLOOD ORDERABL ES Final Result Performing Organization Address [facility] Co de Phone Number [facility] [address] [place] [phone] * HIV-1/2 Antigen and Antibodies, Fourth Generation, with Reflexes (06/19/2024 10:29 AM EDT) HIV AB/AG Nonreactive Nonreactive [facility] Comment:HIV-1 p24 Ag and/or HIV-1/HIV-2 Ab not detected.A test result that is nonreactive does not exclude thepossibility of exposure to or infection with HIV-1 and/orHIV-2. Nonreactive results in this assay for individualswith prior exposure to HIV-1 and/or HIV-2 may be due toantigen and antibody levels that are below the limit ofdetection of this assay.The [employer] HIV Ag/Ab Combo assay result andsupplemental assay results should be interpreted inconjunction with the patient's clinical presentation,history and other laboratory results. If the results areinconsistent with clinical evidence, additional testing issuggested to confirm the result. Blood Venous blood specimen / Unknown 06/19/2024 10:29 AM EDT 06/19/2024 10:29 AM EDT Maurice Odom MD LAB BLOOD ORDERABL ES Final Result Performing Organization Address City/[facility]/ZIP Co de Phone Number [facility] [address] [place] [phone] * Uric acid (06/19/2024 10:29 AM EDT) Uric Acid 6.1 3.4 - 7.0 mg/dL [facility] 06/19/2024 10:2 9 AM EDT 06/19/2024 10:29 AM EDT us Generic External Data Provider LAB BLOOD ORDERAB LES Final Result Performing Organization Address City/[facility]/ZIP Co de Phone Number [facility] [address] [place] [phone] * (ABNORMAL) Lipid Panel, Standard (06/19/2024 10:29 AM EDT) Triglycerides 66 <150 mg/dL [facility] Comment:Desirable Triglyceri de: less than 150 mg/dLBorderline High Triglyceride 150-199 mg/dLHigh Triglyceride: 200-499 mg/dLVery High Triglyceride: greater than or equal to 5OO mg/dL Cholesterol 167 <200 mg/dL [facility] Comment:Desirable Cholestero l: less than 200 mg/dLBorderline High Cholesterol: 200-239 mg/dLHigh Cholesterol: greater than 239 mg/dL LDL Cholesterol Calculated 106(H) <100 mg/dL [facility] Comment:Desirable LDL: less than 100 mg/dLNear Optimal/Above Optimal LDL: 110- 129 mg/dLBorderline High LDL: 130-159 mg/dLHigh LDL: 160-189 mg/dLVery High LDL: greater than or equal to 190 mg/dL HDL Cholesterol 48 >40 mg/dL [facility] Comment:Desirable HDL: great er than 40 mg/dL Note: This HDL assay may give artificially low results in patients with liver disease. Blood Venous blood specimen / Unknown 06/19/2024 10:29 AM EDT 06/19/2024 10:29 AM EDT us Maurice Odom MD LAB BLOOD ORDERABL ES Final Result [facility] [address] [place], [place] [phone] * (ABNORMAL) Comprehensive Metabolic Panel (06/19/2024 10:29 AM EDT) Sodium 140 135 - 145 mmol/L [facility] Potassium 4.5 3.3 - 5.1 mmol/L [facility] Chloride 110(H) 96 - 108 mmol/L [facility] Carbon Dioxide 25 22 - 29 mmol/L [facility] Anion Gap 10(L) 12 - 20 [facility] Urea Nitrogen (BUN) 26(H) 9 - 16 mg/dL [facility] Creatinine, Serum 1.07 0.5 - 1.4 mg/dL [facility] Estimated Glomerular Filt Rate >60 [facility] Comment:Chronic Kidney Disea se: Estimated GFR < 60 mL/min/1.77m3Omthzh Kidney Disease: Estimated GFR < 15 mL/min/1.73m2 Glucose 98 60 - 115 mg/dL [facility] Calcium 9.6 8.4 - 10.2 mg/dL [facility] Bilirubin, Total 1.3(H) 0.0 - 1.0 mg/dL [facility] Aspartate Amino Transferase 24 5 - 37 U/L [facility] Alanine Aminotransferase 17 0 - 40 U/L [facility] Total Protein 7.1 6.5 - 8.0 g/dL [facility] Albumin Level 4.1 3.5 - 5.0 g/dL [facility] Alkaline Phosphatase 103 39 - 117 U/L [facility] Blood Venous blood specimen / Unknown 06/19/2024 10:29 AM EDT 06/19/2024 10:29 AM EDT Maurice Odom MD LAB BLOOD ORDERABL ES Final Result [facility] [address] [place] [phone] * Cologuard?? colon cancer screening (03/30/2024 9:00 PM EST) Pathologist [facility] Cologuard Result Negative Negative 04/08/19 11:29 PM EST [facility] (CLIA #:[id number]) Comment: NEGATIVE TEST RESULT. A negative Cologuard [...] screened with both Cologuard and colonoscopy. (Yoav Martinez et al, N Engl J Med 2014;370(14):1286- 1297) The normal value (reference range) for this assay is negative. COLOGUARD RE-SCREENING RECOMMENDATION: Periodic colorectal cancer screening is an important part of preventive healthcare for asymptomatic individuals at average risk for colorectal cancer. ??Following a negative Cologuard result, the [place] [employer] Society and U.S. Multi-Society Task Force screening guidelines recommend a Cologuard re-screening interval of 3 years. References: [place] [employer] Guideline for Colorectal Cancer Screening: https://www.cancer.org/cancer/tlllu-gsvvso-kkmmso/yblgxagqj-soqfdotsy-ucjavoy/ac s-rec ommendations.html.; Mike POLLARD, Joy MARIE, Casandra HOPPER, Colorectal Cancer Screening: Recommendations for Physicians and Patients from the U.S. Multi-Society Task Force on Colorectal Cancer Screening , Am J Gastroenterology 2017; 112:6565-7531. TEST DESCRIPTION: Composite algorithmic analysis of stool [...] screened with both Cologuard and colonoscopy. (Yoav Martinez et al, N Engl J Med 2014;370(14):3937-2729.) Cologuard may produce a false negative or false positive result (no colorectal cancer or precancerous polyp present at colonoscopy follow up). A negative Cologuard test result does not guarantee the absence of CRC or advanced adenoma (pre-cancer). The current Cologuard screening interval is every 3 years. ([place] [employer] Society and U.S. Multi-Society Task Force). Cologuard performance data in a 10,000 patient pivotal study using colonoscopy as the reference method can be accessed at the following location: www.[employer].NineSixFive/results. Additional description of the Cologuard test process, warnings and precautions can be found at www.[employer]rogNippord.com. Stool specimen (specimen) 03/30/2024 9:00 PM EST 04/01/2024 2:04 PM EST Maurice Odom MD LAB MOLECULAR DIAG NOSTICS ORDERABLES Final Result [facility] (CLIA #:[id number]) [address] [place] [address], [place] [phone] from Last 3 Months or Most Recently Relevant to Health Maintenance Insurance [address] [place] [phone] [employer] [address] [place] [phone] Care Teams Ribbon Blocker Relationship Specialty Start Date End Date Maurice Keyes MD [address] [place] [phone] PCP - General Internal Medicine 07/25/19
--- OUTSIDE RECORDS SUMMARY | 2024-07-05 13:03 | XMS_ITS | Clinical Summary ---
Author Organization [facility] Facility Address [address] [place] [phone] Care Team Providers Care Cpr Ambulance Driver Name Role Phone Maurice Snider Primary Care Provider [phone] Allergies No known active allergies Medications allopurinol [...] [place] Care Teams Cpr Ambulance Driver Relationship Specialty Start Date End Date Maurice Snider PCP - General Internal Medicine 08/06/21
[2024-07-05 13:19] VITALS: BP 86/56; PULSE 81; O2SAT 97; BMI 46.8
--- NOTE | 2024-07-05 13:19 | HO.NEPHOV_ITS ---
Vital Signs 07/05/24 13:19 07/05/24 13:29 Height 5 ft 7 in Weight 299 lb BMI 46.8 BP 86/56 L 90/60 Blood Pressure Location Rt brachial Rt brachial Position Sitting Sitting Pulse 81 Pulse Source Pulse Oximeter Pulse Oximetry (%) 97 Oxygen Delivery Method Room Air Intake Visit Reasons: CKD/ Conf Discotheque Dancer Required: No Accompanied by: Self / Same As Patient Allergies No Known Allergies [No Known Allergies*] Allergy (Verified 07/05/24 13:21) Medication List - Last Reconciled 07/05/24 by Harinder Suazo MD allopurinol 150 mg PO DAILY apixaban (Eliquis) 5 mg PO BID carvedilol 3.125 mg PO BID colchicine 0.6 mg PO BID 2 days colchicine 0.6 mg PO BID dapagliflozin propanediol 10 mg PO DAILY morphine 15 mg PO Q8H PRN oxycodone 5 mg PO TID PRN 3 days prednisone 60 mg (3 x 20 mg) PO DAILY 5 days prednisone 40 mg (2 x 20 mg) PO DAILY sacubitril-valsartan 24-26 mg (Entresto) 1 tab PO BID torsemide 20 mg PO BID HPI Comments Details: Middle-aged man with obesity and cardiomyopathy and CKD. He has a history of SOILA in the past. Renal function is improved and returned to baseline. Today he has no specific complaints. 01/19/24 ; Had gout.Treated with Prednisone/Colchicine/Allopurinol 07/05/24: No new issues; Still with joint pain on and off fom gout. NO lightheadedness [facility] Medical History Gout Cardiomyopathy Dyspnea Pulmonary hypertension SINGH (obstructive sleep apnea) Social History Patient Tobacco Use Status: Tobacco use Unknown Physical Exam Vital Signs: Last Vital Signs Pulse 81 07/05/24 13:19 BP 86/56 L 07/05/24 13:19 Pulse Ox 97 07/05/24 13:19 Oxygen Delivery Method Room Air 07/05/24 13:19 BMI result Body Mass Index 46.8 Neck Neck: Yes supple Resp Auscultation: clear to auscultation bilaterally Cardio Palpation: no palpable S3 Heart sounds: no rubs GI Palpation (GI): Soft to palpation Auscultation: normal bowel sounds Neuro Motor exam (neuro): no asterixis Results Reviewed Nephrology Results: Hgb 13.6 g/dl (14.0-18.0) L 06/19/24 WBC 7.7 X10*3/uL (4.8-10.8) 06/19/24 Plt Count 203 X10*3/uL (160-400) 06/19/24 Sodium 140 mmol/L (135-145) 06/19/24 Potassium 4.5 mmol/L (3.3-5.1) 06/19/24 Chloride 110 mmol/L (96-108) H 06/19/24 Carbon Dioxide 25 mmol/L (22-29) 06/19/24 BUN 26 mg/dL (9-16) H 06/19/24 Creatinine 1.07 mg/dL (0.5-1.4) 06/19/24 Calcium 9.6 mg/dL (8.4-10.2) 06/19/24 Assessment & Plan Assessment & Plan (1) CKD (chronic kidney disease) stage 3, GFR 30-59 ml/min: Code(s): N18.30 - Chronic kidney disease, stage 3 unspecified Category: Medical (2) Cardiomyopathy: Code(s): I42.9 - Cardiomyopathy, unspecified Category: Medical Plan Middle-aged man with CKD in setting obesity and cardiomyopathy. He had an episode of SOILA which has resolved. At present renal function is at baseline. Goal is to slow the progression of renal disease. Continue to avoid hypotension and nephrotoxins including NSAIDs. Discussed importance of weight loss and low-sodium diet. BP relatively low but symptomatic . Gout Under control Stay on low purine diet along with Allopurinol Will check uric acid. . Orders: Orders Basic Metabolic Panel 4 Months N18.30 - Chronic kidney disease, stage 3 unspecified Uric Acid 4 Months N18.30 - Chronic kidney disease, stage 3 unspecified Coding Level of Care Code Est Pt Level 4 (42429) Diagnoses CKD (chronic kidney disease) stage 3, GFR 30-59 ml/min N18.30 Cardiomyopathy I42.9
[2024-07-05 13:29] VITALS: BP 90/60
== END 2024-07-05 13:34 | disposition home or self-care (01) ==
LOC: HO.HKA 12:43
PROVIDERS: PCP Internal Medicine; Visit Provider Internal Medicine Hypertension Specialist
DX: N18.30 Chronic kidney disease, stage 3 unspecified (principal); I42.9 Cardiomyopathy, unspecified
CPT/HCPCS: 99214

== ENCOUNTER → 2024-07-05 12:42 | Outpatient (BNVA) | payer MEDICAID, SELFPAY | PROVIDERS: PCP Internal Medicine; Visit Provider Internal Medicine Hypertension Specialist | DX: E66.9 Obesity, unspecified (principal); I42.9 Cardiomyopathy, unspecified; N18.30 Chronic kidney disease, stage 3 unspecified; Z68.42 Body mass index [BMI] 45.0-49.9, adult | CPT/HCPCS: 99212 ==

== ENCOUNTER 2025-01-13 14:36 | Outpatient (REF) | payer MEDICAID, SELFPAY ==
--- OUTSIDE RECORDS SUMMARY | 2025-01-13 13:30 | XMS_ITS | Encounter Summary ---
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; Essential (primary) hypertension Social History Tobacco Use Types Packs/Day Years Used Date Smoking Tobacco: Never Assessed Depression Answer Date Recorded Patient Health Questionnaire-9 Score 0 01/13/2025 Patient Health Questionnaire-9 Score 0 01/13/2025 Last PHQ-9: Questionnaire Data Not on file 1 03/15/2024 Housing Stability Answer Date Recorded What is [...] Date Recorded Patient Health Questionnaire-2 Score 0 01/13/2025 Internet Access Answer Date Recorded Internet Access Q1 Yes 01/05/2024 Internet Access Q2 Not on file 01/05/2024 Sex and Gender Information Value Date Recorded Sex Assigned at Male 12/24/2021 10:16 AM EDT Legal Sex Male 10:16 AM EDT Gender Identity Choose not to disclose 10:16 AM EDT Sexual Orientation Choose not to disclose 2021 10:16 AM EDT documented as of this encounter Last Filed Vital Signs Vital Sign Reading Time Taken Comments Blood Pressure 104/68 01/13/2025 1:41 PM EST Pulse 50 01/13/2025 1:41 PM EST Temperature 37.1 C (98.7 F) 01/13/2025 1:41 PM EST Respiratory Rate 20 01/13/2025 1:41 PM EST Oxygen Saturation - - Inhaled Oxygen Concentration - - Weight 138 kg (305 lb) 01/13/2025 1:41 PM EST Height 170.2 cm (5' 7 ) 01/13/2025 1:41 PM EST Body Mass Index 47.77 01/13/2025 1:41 PM EST documented in this encounter Functional Status * Over the past 2 weeks, how often have you been bothered by any of the following problems? Question Answer Date of Assessment Author Patient Health Questionnaire-2 Score 0 12/26 1:42 PM EST Love Triana MA * Little interest or pleasure in doing things Answer Date of Assessment Author Not at all 01/13/2025 1:42 PM EST Daria Triana MA * Feeling down, depressed, or hopeless Answer Date of Assessment Author Not at all 01/13/2025 1:42 PM EST Daria Triana MA * Trouble falling or staying asleep, or sleeping too much Answer Date of Assessment Author Not at all 01/13/2025 1:42 PM Daria Heath MA * Feeling tired or having little energy Answer Date of Assessment Author Not at all 01/13/2025 1:42 PM Daria Heath MA * Poor appetite or overeating Answer Date of Assessment Author Not at all 01/13/2025 1:42 PM Daria Heath MA * Feeling bad about yourself - or that you are a failure or have let yourself or your family down Answer Date of Assessment Author Not at all 01/13/2025 1:42 PM Daria Heath MA * Trouble concentrating on things, such as reading the newspaper or watching television Answer Date of Assessment Author Not at all 01/13/2025 1:42 PM Daria Heath MA * Moving or speaking so slowly that other people could have noticed? Or the opposite - being so fidgety or restless that you have been moving around a lot more than usual. Answer Date of Assessment Author Not at all 01/13/2025 1:42 PM Daria Heath MA * Thoughts that you would be better off or hurting yourself in some way Answer Date of Assessment Author Not at all 01/13/2025 1:42 PM Daria Heath MA * Patient Health Questionnaire-9 Score Answer Date of Assessment Author 0 01/13/2025 1:42 PM Daria Heath MA documented as of this encounter Progress Notes * Maurice Odom MD - 01/13/2025 1:30 PM EST Subjective Patient ID: Phillip Garvin is a 59 y.o. adult who presents for No chief complaint on file.. Hypertension This is a chronic problem. The problem is controlled. Pertinent negatives include no chest pain, headaches, palpitations, peripheral edema or shortness of breath. Review of Systems Respiratory: Negative for shortness of breath. Cardiovascular: Negative for chest pain and palpitations. Neurological: Negative for headaches. Objective Physical Exam Constitutional: Appearance: Normal appearance. Cardiovascular: Rate and Rhythm: Normal rate. Heart sounds: No murmur heard. Pulmonary: Effort: Pulmonary effort is normal. No respiratory distress. Breath sounds: No stridor. No wheezing or rhonchi. Abdominal: General: Abdomen is flat. There is no distension. Palpations: There is no mass. Tenderness: There is no abdominal tenderness. Hernia: No hernia is present. Neurological: General: No focal deficit present. Mental Status: Phillip is alert and oriented to person, place, and time. Psychiatric: Mood and Affect: Mood normal. Behavior: Behavior normal. Assessment/Plan Problem List Items Addressed This Visit Chronic gout without tophus Relevant Orders CBC auto differential Comprehensive Metabolic Panel Lipid Panel, Standard TSH W/Reflex to FT4 Uric acid Essential (primary) hypertension (Chronic) Controlled, keep low sodium diet and exercise, keep blood pressure log, follow up in 3 months Chronic kidney disease - Primary (Chronic) Followed by nephrology, will follow up reccomendations documented in this encounter Miscellaneous Notes * Assessment & Plan Note - Maurice Odom MD - 01/13/2025 2:23 PM ESTAssociated Problem(s): Chronic kidney disease Followed by nephrology, will follow up reccomendations * Assessment & Plan Note - Maurice Odom MD - 01/13/2025 2:22 PM ESTAssociated Problem(s): Essential (primary) hypertension Controlled, keep low sodium diet and exercise, keep blood pressure log, follow up in 3 months documented in this encounter Plan of Treatment Not on file documented as of this encounter Procedures Procedure Name Priority Date/Time Associated Diagnosis Comments TSH W/REFLEX TO FT4 Routine 01/13/2025 2 :38 PM EST 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 CBC WITH AUTO DIFFERENTIAL Routine 01/13/2025 2:38 PM EST 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 URIC ACID Routine 01/13/2025 2:38 PM EST 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 LIPID PANEL, STANDARD Routine 01/13/2025 2:38 PM EST 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 COMPREHENSIVE METABOLIC PANEL Routine 01/13/2025 2:38 PM EST 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 documented in this encounter Results * Uric acid (01/13/2025 2:38 PM EST) Uric Acid 5.5 3.4 - 7.0 mg/dL [facility] Blood Venous blood specimen / Unknown 01/13/2025 2:38 PM EST 01/13/2025 6:01 PM EST Maurice Odom MD LAB BLOOD ORDERABL ES Final Result Performing Organization Address [facility]/ZIP Co de Phone Number [facility] [address] [place] [phone] * TSH W/Reflex to FT4 (01/13/2025 2:38 PM EST) Pathologist [facility] TSH reflex Free T4 1.83 0.32 - 4.0 uIU/mL [facility] Blood Venous blood specimen / Unknown 01/13/2025 2:38 PM EST 01/13/2025 6:01 PM EST Maurice Odom MD LAB BLOOD ORDERABL ES Final Result Performing Organization Address City[facility]/ZIP Co de Phone Number [facility] [address] [place] [address] [phone] * (ABNORMAL) Lipid Panel, Standard (01/13/2025 2:38 PM EST) Triglycerides 76 <150 mg/dL [facility] Comment:Desirable Triglyceri de: less than 150 mg/dLBorderline High Triglyceride 150-199 mg/dLHigh Triglyceride: 200-499 mg/dLVery High Triglyceride: greater than or equal to 5OO mg/dL Cholesterol 182 <200 mg/dL [facility] Comment:Desirable Cholestero l: less than 200 mg/dLBorderline High Cholesterol: 200-239 mg/dLHigh Cholesterol: greater than 239 mg/dL LDL Cholesterol Calculated 114(H) <100 mg/dL [facility] Comment:Desirable LDL: less than 100 mg/dLNear Optimal/Above Optimal LDL: 110- 129 mg/dLBorderline High LDL: 130-159 mg/dLHigh LDL: 160-189 mg/dLVery High LDL: greater than or equal to 190 mg/dL HDL Cholesterol 53 >40 mg/dL [facility] Comment:Desirable HDL: great er than 40 mg/dL Note: This HDL assay may give artificially low results in patients with liver disease. Blood Venous blood specimen / Unknown 01/13/2025 2:38 PM EST 01/13/2025 6:01 PM EST us Maurice Odom MD LAB BLOOD ORDERABL ES Final Result [facility] [address] [place] [phone] * (ABNORMAL) Comprehensive Metabolic Panel (01/13/2025 2:38 PM EST) Sodium 139 135 - 145 mmol/L [facility] Potassium 4.6 3.3 - 5.1 mmol/L [facility] Chloride 107 96 - 108 mmol/L [facility] Carbon Dioxide 24 22 - 29 mmol/L [facility] Anion Gap 13 12 - 20 [facility] Urea Nitrogen (BUN) 34(H) 9 - 16 mg/dL [facility] Creatinine, Serum 1.56(H) 0.5 - 1.4 mg/dL [facility] Estimated Glomerular Filt Rate 46 [facility] Comment:Chronic Kidney Disea se: Estimated GFR < 60 mL/min/[id number] Kidney Disease: Estimated GFR < 15 mL/min/1.73m2 Glucose 84 60 - 115 mg/dL [facility] Calcium 9.2 8.4 - 10.2 mg/dL [facility] Bilirubin, Total 0.7 0.0 - 1.0 mg/dL [facility] Aspartate Amino Transferase 37 5 - 37 U/L [facility] Alanine Aminotransferase 24 0 - 40 U/L [facility] Total Protein 7.1 6.5 - 8.0 g/dL [facility] Albumin Level 4.4 3.5 - 5.0 g/dL [facility] Alkaline Phosphatase 103 39 - 117 U/L [facility] Blood Venous blood specimen / Unknown 01/13/2025 2:38 PM EST 01/13/2025 6:01 PM EST us Maurice Odom MD LAB BLOOD ORDERABL ES Final Result [facility] [address] [place] [phone] * (ABNORMAL) CBC auto differential (01/13/2025 2:38 PM EST) White Blood Count 9.5 4.8 - 10.8 X10*3/uL [facility] Red Blood Count 4.69 4.60 - 5.80 X10*6/uL [facility] Hemoglobin 14.4 14.0 - 18.0 g/dl [facility] Hematocrit 45.1 42.0 - 52.0 % [facility] Mean Corpuscular Volume 96.2 80.0 - 98.0 fL [facility] Mean Corpuscular Hemoglobin 30.7 27.0 - 33.0 pg [facility] Mean Corpuscular HGB Conc 31.9 31.0 - 36.0 g/dl [facility] Red Cell Distribution Width 13.9 11.0 - 16.0 % [facility] Platelet Count 197 160 - 400 X10*3/uL [facility] Mean Platelet Volume 12.2 9.4 - 12.4 fL [facility] Neutrophils Percent Auto 76.9(H) 45 - 73 % [facility] Imm Gran Pct Auto 0.3 0.0 - 0.4 % [facility] Lymphocytes Percent Auto 12.1(L) 20 - 40 % [facility] Monocytes Percent Auto 6.3 2 - 11 % [facility] Eosinophils Percent Auto 3.9 0 - 4 % [facility] Basophils Percent Auto 0.5 0 - 2 % [facility] NRBC Pct Auto 0.0 0.0 - 0.2 /100WBC [facility] Neutrophils Absolute Auto 7.3 2.0 - 8.3 x10*3/uL [facility] Imm Gran Abs Auto 0.03 0.00 - 0.03 X10*3/uL [facility] Lymphocytes Absolute Auto 1.2 1.2 - 4.9 X10*3/uL [facility] Monocytes Absolute Auto 0.6 0.1 - 1.2 X10*3/uL [facility] Eosinophils Absolute Auto 0.4 0.0 - 0.4 X10*3/uL [facility] Basophils Absolute Auto 0.1 0.0 - 0.2 X10*3/uL [facility] NRBC Abs Auto 0.000 0.0 - 0.012 X10*3/uL [facility] Blood Venous blood specimen / Unknown 01/13/2025 2:38 PM EST 01/13/2025 6:01 PM EST us Maurice Odom MD LAB BLOOD ORDERABL ES Final Result [facility] [address] [place] [phone] documented in this encounter Visit Diagnoses Diagnosis Stage 3b chronic kidney disease (CMS/HCC) (HCC)- Primary 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
[2025-01-13 18:06] LABS: MANUAL DIFF FLAG NO
[2025-01-13 18:12] LABS: Hematocrit 45.1 % (42.0-52.0); Hemoglobin 14.4 g/dl (14.0-18.0); Imm Gran Abs Auto 0.03 X10*3/uL (0.00-0.03); Imm Gran Pct Auto 0.3 % (0.0-0.4); Lymphocytes Absolute Auto 1.2 X10*3/uL (1.2-4.9); Mean Corpuscular HGB Conc 31.9 g/dl (31.0-36.0); Mean Corpuscular Hemoglobin 30.7 pg (27.0-33.0); Mean Corpuscular Volume 96.2 fL (80.0-98.0); NRBC Abs Auto 0.000 X10*3/uL (0.0-0.012); NRBC Pct Auto 0.0 /100WBC (0.0-0.2); Platelet Count 197 X10*3/uL (160-400); Red Blood Count 4.69 X10*6/uL (4.60-5.80); White Blood Count 9.5 X10*3/uL (4.8-10.8)
[2025-01-13 18:32] LABS: Alanine Aminotransferase 24 U/L (0-40); Albumin Level 4.4 g/dL (3.5-5.0); Alkaline Phosphatase 103 U/L (39-117); Anion Gap 13 (12-20); Aspartate Amino Transferase 37 U/L (5-37); Blood Urea Nitrogen 34 mg/dL (9-16); Calcium 9.2 mg/dL (8.4-10.2); Carbon Dioxide 24 mmol/L (22-29); Chloride 107 mmol/L (96-108); Cholesterol 182 mg/dL (<200); Estimated Glomerular Filt Rate 46; HDL Cholesterol 53 mg/dL (>40); Potassium 4.6 mmol/L (3.3-5.1); Sodium 139 mmol/L (135-145); Total Protein 7.1 g/dL (6.5-8.0); Triglycerides 76 mg/dL (<150); Uric Acid 5.5 mg/dL (3.4-7.0)
--- OUTSIDE RECORDS SUMMARY | 2025-01-13 19:58 | XMS_ITS | Encounter Summary ---
Author Organization [employer] Address [address] [place] [address] Care Team Providers Care Value Analyst Name Role Phone Maurice Keyes MD Primary Care Prov ider Encounter Details Date Type Department Care Team (Latest Contact Info) Description 01/13/2025 Travel Social History Tobacco Use Types Packs/Day [...] AM EDT documented as of this encounter Functional Status * Over the past 2 weeks, how often have you been bothered by any of the following problems? Question Answer Date of Assessment Author Patient Health Questionnaire-2 Score 0 12/26 1:42 PM Love Heath MA * Little interest or pleasure in doing things Answer Date of Assessment Author Not at all 01/13/2025 1:42 PM Daria Heath MA * Feeling down, depressed, or hopeless Answer Date of Assessment Author Not at all 01/13/2025 1:42 PM Daria Heath MA * Trouble falling or staying asleep, [...] Heath MA documented as of this encounter Plan of Treatment Not on file documented as of this encounter Visit Diagnoses Not on filedocumented in this encounter Additional Health Concerns Assessment Noted Time PHQ-9 Depression Total Score: 0 01/14/20 25 1:42 PM EST documented as of this encounter Care Teams Value Analyst Relationship Specialty Start Date End Date Maurice Keyes MD [address] [place] [phone] PCP - General Internal Medicine 07/25/19 documented as of this encounter
--- OUTSIDE RECORDS SUMMARY | 2025-01-13 19:58 | XMS_ITS | Encounter Summary ---
Author Organization [employer] Address [address] [place] [address] Care Team Providers Care Safekeeping Clerk Name Role Phone Maurice Keyes MD Primary Care Prov ider Reason for Visit * Reason Onset Date Comments Referral 01/01/2024 Encounter Details Date Type Department Care Team ([facility] st Contact Info) Description 01/01/2024 Telephone [facility] [address] [place], [place] [phone] Maurice Keyes MD [address] [place] [address] Referral Social History Tobacco Use Types Packs/Day [...] requesting a referral to be seen with [facility]. Please contact pt at [phone]. ([place] Speaker) documented in this encounter Plan of Treatment Not on file documented as of this encounter Visit Diagnoses Not on filedocumented in this encounter Care Teams Safekeeping Clerk Relationship Specialty Start Date End Date Maurice Keyes MD [address] [place] [phone] PCP - General Internal Medicine 07/25/19 documented as of this encounter
--- OUTSIDE RECORDS SUMMARY | 2025-01-13 19:59 | XMS_ITS | Clinical Summary ---
Author Organization [employer] Address [address] [facility] [place] [address] Care Team Providers Care Brick Or Block Maker Name Role Phone Maurice Keyes MD Primary Care Prov ider Allergies No known active allergies Medications Eliquis 5 MG tablet Take 5 mg [...] TIMES DAILY. 100 g 1 5 Active allopurinol (Zyloprim) 300 MG tabletIndicatio ns:Idiopathic chronic gout of multiple sites without tophus TAKE 1 TABLET BY MOUTH EVERY DAY 90 tablet 5 Active diclofenac (Cataflam) 50 MG tablet TAKE 1 TABLET BY MOUTH TWICE A DAY 60 tablet 1 5 Active Active Problems Problem Noted [...] Obstructive sleep apnea syndrome 10/09/2023 Severe obesity (CMS/HCC) 10/09/2023 Essential (primary) hypertension 08/13/2021 Assessment & Plan (01/13/2025 2:22 PM EST): Controlled, keep low sodium diet and exercise, keep blood pressure log, follow up in 3 months Assessment & Plan (05/31/2024 2:33 PM EDT): Patient not monitoring his blood pressure at home, encouraged to keep, low sodium diet, keep bp log, will follow up in 3 months Chronic kidney disease 08/13/2021 Assessment & Plan (01/13/2025 2:23 PM EST): Followed by nephrology, will follow up reccomendations Encounters Date Type Department Care Team Description 01/13/2025 1:30 PM EST Office Visit [facility] MED [facility] PEDS [address] [place] [address] Maurice Keyes MD Stage 3b chronic kidney disease (CMS/HCC) (HCC) (Primary Dx); 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; Essential (primary) hypertension 01/13/2025 Travel 11/04/2024 Refill [facility] MEDICINE [address] [place] [address] Maurice Keyes MD from Last 3 Months Social History Tobacco [...] Mass Index 47.77 01/13/2025 1:41 PM EST Plan of Treatment Health Maintenance Due Date Last Done Comments CT Colonography 1966 Colonoscopy 1966 Sigmoidoscopy 1966 Disability Screening 1966 Alcohol/Substance Use Screening 1978 Tobacco Screening 1978 DTaP/Tdap/Td Vaccines (1 - Tdap) 1985 Hepatitis B Vaccines (1 of 3 - 19+ 3-dose series) 1985 Pneumococcal Vaccine: 50+ Years (1 of 2 - PCV) 1985 RSV Patients and Patients Aged 60 years or older (1 - Risk 50-74 years 1-dose series) 2016 Zoster Vaccines (1 of 2) 2016 FIT 01/22/2022 01/22/2021 COVID-19 Vaccine (1 - 2024-2 6 season) 2024 Influenza Vaccine (#1) 2024 9, 12/16/2016 SDOH Screening 03/18/2025 03/18/2024 FOBT 03/30/2025 03/30/2024 Depression Screening 01/13/2026 01/13/2025, 01/13/2025 Colorectal Cancer Screening 03/30/2027 FIT DNA/Cologuard 03/30/2027 03/30/2024 Lipid Panel 06/19/2029 01/13/2025, 06/19/2024 HIV Screening Completed 06/19/2024 Hepatitis C Screening [...] patient's age to complete this topic Meningococcal B Vaccine Aged Out No l onger eligible based on patient's age to complete [...] Date/Time Associated Diagnosis Comments URIC ACID Routine 01/13/2025 2:38 PM EST 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 TSH W/REFLEX TO FT4 Routine 01/13/2025 2 [...] chronic gout of left ankle without tophus HEPATITIS C AB W/REFL TO HCV RNA, QN, PCR Routine 06/19/2024 10:29 AM EDT Heart failure with reduced ejection fraction (CMS/HCC) HIV 1/2 ANTIGEN/ANTIBODY, FOURTH GENERATION W/RFL Routine 06/19/2024 10:29 AM EDT Heart failure with reduced ejection fraction (CMS/HCC) LAB COLOGUARD COLON CANCER SCREEN Routine 03/30/2024 9:00 PM EST Screening for colon cancer from Last 3 Months or Most Recently Relevant to Health Maintenance Results * TSH W/Reflex to FT4 (01/13/2025 2:38 PM EST) TSH reflex Free T4 1.83 0.32 - 4.0 uIU/mL [facility] Blood Venous blood specimen / Unknown 01/13/2025 2:38 PM EST 01/13/2025 6:01 PM EST us Maurice Odom MD LAB BLOOD ORDERABL ES Final Result [facility] [address] [place] [phone] * (ABNORMAL) CBC auto differential (01/13/2025 2:38 PM EST) White Blood Count 9.5 4.8 - 10.8 X10*3/uL [facility] Red Blood Count 4.69 4.60 - 5.80 X10*6/uL [facility] Hemoglobin 14.4 14.0 - 18.0 g/dl [facility] Hematocrit 45.1 42.0 - 52.0 % [facility] Mean Corpuscular Volume 96.2 80.0 - 98.0 fL [facility] Mean Corpuscular Hemoglobin 30.7 27.0 - 33.0 pg [facility] Mean Corpuscular HGB Conc 31.9 31.0 - 36.0 g/dl [facility] Red Cell Distribution Width 13.9 11.0 - 16.0 % [facility] Platelet Count 197 160 - 400 X10*3/uL [facility] Mean Platelet Volume 12.2 9.4 - 12.4 fL [facility] Neutrophils Percent Auto 76.9(H) 45 - 73 % [facility] Imm Gran Pct Auto 0.3 0.0 - 0.4 % [facility] Lymphocytes Percent Auto 12.1(L) 20 - 40 % [facility] Monocytes Percent Auto 6.3 2 - 11 % [facility] Eosinophils Percent Auto 3.9 0 - 4 % [facility] Basophils Percent Auto 0.5 0 - 2 % [facility] NRBC Pct Auto 0.0 0.0 - 0.2 /100WBC [facility] Neutrophils Absolute Auto 7.3 2.0 - 8.3 x10*3/uL [facility] Imm Gran Abs Auto 0.03 0.00 - 0.03 X10*3/uL [facility] Lymphocytes Absolute Auto 1.2 1.2 - 4.9 X10*3/uL [facility] Monocytes Absolute Auto 0.6 0.1 - 1.2 X10*3/uL [facility] Eosinophils Absolute Auto 0.4 0.0 - 0.4 X10*3/uL [facility] Basophils Absolute Auto 0.1 0.0 - 0.2 X10*3/uL [facility] NRBC Abs Auto 0.000 0.0 - 0.012 X10*3/uL [facility] Blood Venous blood specimen / Unknown 01/13/2025 2:38 PM EST 01/13/2025 6:01 PM EST Maurice Odom MD LAB BLOOD ORDERABL ES Final Result Performing Organization Address [facility]/ZIP Co de Phone Number [facility] [address] [place] [phone] * Uric acid (01/13/2025 2:38 PM EST) Uric Acid 5.5 3.4 - 7.0 mg/dL [facility] Blood Venous blood specimen / Unknown 01/13/2025 2:38 PM EST 01/13/2025 6:01 PM EST Maurice Odom MD LAB BLOOD ORDERABL ES Final Result Performing Organization Address City/[facility]/ZIP Co de Phone Number [facility] [address] [place] [phone] * (ABNORMAL) Lipid Panel, Standard (01/13/2025 2:38 PM EST) Triglycerides 76 <150 mg/dL [facility] Comment:Desirable Triglyceri de: less than 150 mg/dLBorderline High Triglyceride 150-199 mg/dLHigh Triglyceride: 200-499 mg/dLVery High Triglyceride: greater than or equal to 5OO mg/dL Cholesterol 182 <200 mg/dL [facility] Comment:Desirable Cholestero l: less than 200 mg/dLBorderline High Cholesterol: 200-239 mg/dLHigh Cholesterol: greater than 239 mg/dL LDL Cholesterol Calculated 114(H) <100 mg/dL [facility] Comment:Desirable LDL: less than 100 mg/dLNear Optimal/Above Optimal LDL: 110- 129 mg/dLBorderline High LDL: 130-159 mg/dLHigh LDL: 160-189 mg/dLVery High LDL: greater than or equal to 190 mg/dL HDL Cholesterol 53 >40 mg/dL [facility] Comment:Desirable HDL: great er than 40 mg/dL Note: This HDL assay may give artificially low results in patients with liver disease. Blood Venous blood specimen / Unknown 01/13/2025 2:38 PM EST 01/13/2025 6:01 PM EST us Maurice Odom MD LAB BLOOD ORDERABL ES Final Result [facility] [address] [place] [phone] * (ABNORMAL) Comprehensive Metabolic Panel (01/13/2025 2:38 PM EST) Sodium 139 135 - 145 mmol/L [facility] Potassium 4.6 3.3 - 5.1 mmol/L [facility] Chloride 107 96 - 108 mmol/L [facility] Carbon Dioxide 24 22 - 29 mmol/L [facility] Anion Gap 13 12 - 20 [facility] Urea Nitrogen (BUN) 34(H) 9 - 16 mg/dL [facility] Creatinine, Serum 1.56(H) 0.5 - 1.4 mg/dL [facility] Estimated Glomerular Filt Rate 46 [facility] Comment:Chronic Kidney Disea se: Estimated GFR < 60 mL/min/1.54f1Dubokp Kidney Disease: Estimated GFR < 15 mL/min/1.73m2 Glucose 84 60 - 115 mg/dL [facility] Calcium 9.2 8.4 - 10.2 mg/dL [facility] Bilirubin, Total 0.7 0.0 - 1.0 mg/dL [facility] Aspartate Amino Transferase 37 5 - 37 U/L [facility] Alanine Aminotransferase 24 0 - 40 U/L [facility] Total Protein 7.1 6.5 - 8.0 g/dL [facility] Albumin Level 4.4 3.5 - 5.0 g/dL [facility] Alkaline Phosphatase 103 39 - 117 U/L [facility] Blood Venous blood specimen / Unknown 01/13/2025 2:38 PM EST 01/13/2025 6:01 PM EST Maurice Odom MD LAB BLOOD ORDERABL ES Final Result Performing Organization Address [facility] Co de Phone Number [facility] [address] [place] [phone] * Hepatitis C Antibody with Reflex to HCV, RNA, Quantitative, Real-Time PCR (06/19/2024 10:29 AM EDT) Hepatitis C Antibody Nonreactive Nonreactive [facility] Comment:Antibodies to HCV no t detected; does not exclude early acuteHCV infection. Blood Venous blood specimen / Unknown 06/19/2024 10:29 AM EDT 06/19/2024 10:29 AM EDT us Maurice Odom MD LAB BLOOD ORDERABL ES Final Result Performing Organization Address [facility] Co de Phone Number [facility] [address] [place] [phone] * HIV-1/2 Antigen and Antibodies, Fourth Generation, with Reflexes (06/19/2024 10:29 AM EDT) HIV AB/AG Nonreactive Nonreactive [facility] Comment:HIV-1 p24 Ag and/or HIV-1/HIV-2 Ab not detected.A test result that is nonreactive does not exclude thepossibility of exposure to or infection with HIV-1 and/orHIV-2. Nonreactive results in this assay for individualswith prior exposure to HIV-1 and/or HIV-2 may be due toantigen and antibody levels that are below the limit ofdetection of this assay.The [employer] HIV Ag/Ab Combo assay result andsupplemental assay results should be interpreted inconjunction with the patient's clinical presentation,history and other laboratory results. If the results areinconsistent with clinical evidence, additional testing issuggested to confirm the result. Blood Venous blood specimen / Unknown 06/19/2024 10:29 AM EDT 06/19/2024 10:29 AM EDT Maurice Odom MD LAB BLOOD ORDERABL ES Final Result [facility] [address] [place] [phone] * Cologuard?? colon cancer screening (03/30/2024 9:00 PM EST) Pathologist [facility] Cologuard Result Negative Negative 04/08/19 11:29 PM EST [employer] (CLIA #:[id number]) Comment: NEGATIVE TEST RESULT. A negative Cologuard result indicates a low likelihood that a colorectal cancer (CRC) or advanced adenoma (adenomatous polyps with more advanced pre-malignant features) is present. The chance that a person with a negative Cologuard test has a colorectal cancer is less than 1 in 1500 (negative predictive value >99.9%) or has an advanced adenoma is less than 5.3% (negative predictive value 94.7%). These data are based on a prospective cross-sectional study of 10,000 individuals at average risk for colorectal cancer who were screened with both Cologuard and colonoscopy. (Yoav Martinez et al, N Engl J Med 2014;370(14):4221-0102) The normal value (reference range) for this assay is negative. COLOGUARD RE-SCREENING RECOMMENDATION: Periodic colorectal cancer screening is an important part of preventive healthcare for asymptomatic individuals at average risk for colorectal cancer. Following a negative Cologuard result, the [place] [employer] and U.S. Multi-Society Task Force screening guidelines recommend a Cologuard re-screening interval of 3 years. References: [place] [employer] Guideline for Colorectal Cancer Screening: https://www.cancer.org/cancer/yfsxm-qinsro-jcudsw/ksuiaxoni-tpgvcxdri-uevzvoc/ac s-rec ommendations.html.; Mike POLLARD, Joy MARIE, Casandra HOPPER, Colorectal Cancer Screening: Recommendations for Physicians and Patients from the U.S. Multi-Society Task Force on Colorectal Cancer Screening , Am J Gastroenterology 2017; 112:8177-6744. TEST DESCRIPTION: Composite algorithmic analysis of stool DNA-biomarkers with hemoglobin immunoassay. Quantitative values of individual biomarkers are not [...] (Yoav Bhat al, N Engl J Med 2014;370(14):7169-9400.) Cologuard may produce a false negative or false positive result (no colorectal cancer or precancerous polyp present at colonoscopy follow up). A negative Cologuard test result does not guarantee the absence of CRC or advanced adenoma (pre-cancer). The current Cologuard screening interval is every 3 years. ([place] [employer] and U.S. Multi-Society Task Force). Cologuard performance data in a 10,000 patient pivotal study using colonoscopy as the reference method can be accessed at the following location: www.exactlabs.com/results. Additional description of the Cologuard test process, warnings and precautions can be found at www.cologuard.com. Stool specimen (specimen) 03/30/2024 9:00 PM EST 04/01/2024 2:04 PM EST Maurice Odom MD LAB MOLECULAR DIAG NOSTICS ORDERABLES Final Result [employer] (CLIA #:[id number]) [address] [place] [address], from Last 3 Months or Most Recently Relevant to Health Maintenance Insurance [employer] Care Teams Brick Or Block Maker Relationship Specialty Start Date End Date Maurice Keyes MD [address] [place] [phone] PCP - General Internal Medicine 07/25/19
--- OUTSIDE RECORDS SUMMARY | 2025-01-13 19:59 | XMS_ITS | Encounter Summary ---
Author Organization [employer] Address [address] [place] [address] Care Team Providers Care Quality Improvement Analyst Name Role Phone Maurice Keyes MD Primary Care Prov ider Encounter Details Date Type Department Care Team ([facility] st Contact Info) Description 05/27/[address] [facility] PEDS [address] [place], [place] [phone] Maurice Keyes MD [address] [place], [place] [phone] Social History Tobacco Use Types Packs/Day Years [...] documented as of this encounter Care Teams Quality Improvement Analyst Relationship Specialty Start Date End Date Maurice Keyes MD [address] [place] [phone] PCP - General Internal Medicine 07/25/19 documented as of this encounter
--- OUTSIDE RECORDS SUMMARY | 2025-01-13 19:59 | XMS_ITS | Clinical Summary ---
Author Organization [facility] Address [address] [place] [phone] Care Team Providers Care Medical Appointment Clerk Name Role Phone Maurice Snider Primary Care [...] Cancer Screening: Sigmoidoscopy 11/25/2015 Influenza Vaccine (#1) 2024 [place] Care Teams Medical Appointment Clerk Relationship Specialty Start Date End Date Maurice Snider PCP - General Internal Medicine 08/06/21
== END 2025-01-13 14:37 | disposition home or self-care (01) ==
LOC: HO.CHCLDS 14:36
PROVIDERS: Visit Provider Internal Medicine
DX: M1A.0720 Idiopathic chronic gout, left ankle and foot, without tophus (tophi) (principal)
CPT/HCPCS: 36415; 80053; 80061; 84443; 84550; 85025